=== PATIENT | male | born 1935 | race Caucasian/White ===

== ENCOUNTER → 2016-10-26 | Outpatient (CLI) | payer BC ==
[~2016-10-26] MED LIST: ASPI81TA21 PO; ATOR-24 PO; ENAL10TA88 PO; FLM4 PO; IBUP-1050 PO; METFTAB PO
[2016-10-26 10:36] LABS: ESTIMATED AVERAGE GLUCOSE 169 mg/dl; HA1C FLAG Normal (Normal)
[2016-10-26 11:08] LABS: LYME DISEASE AB IGG NEG (NEG); LYME DISEASE AB IGM NEG (NEG)
== END | disposition home or self-care (01) ==
LOC: C.LAB1850 09:30
PROVIDERS: ATTEND Internal Medicine
DX: E11.9 Type 2 diabetes mellitus without complications (principal); Z91.89 Other specified personal risk factors, not elsewhere classified

== ENCOUNTER → 2016-12-12 | Outpatient (CLI) | payer BC ==
--- NOTE | 2016-12-12 15:50 | DIAGNOSTIC IMAGING REPORT ---
LEFT TIBIA/FIBULA 2 VIEWS ROUTINE CLINICAL HISTORY: M79.605 Leg pain, left attention to medial [id number] COMPARISON: None. DISCUSSION: No evidence for a total knee revision. Longstem prosthetics are identified within the tibia or distal femur. Contact between metallic prosthesis and underlying bone appears to be acceptable. No abnormal contrast reaction. Soft tissue vascular calcification. There is no evidence for soft tissue swelling. 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 Good contact between prosthetic and underlying bone. No acute bony abnormality. Electronically signed by: Al Arenas M.D. 12/12/2016 3:48 PM Dictated Date/Time: 12/12/2016 3:47 PM
== END | disposition home or self-care (01) ==
LOC: C.RAD1850 15:21
PROVIDERS: ATTEND Physician Assistant
DX: M79.605 Pain in left leg (principal); Z98.890 Other specified postprocedural states

== ENCOUNTER → 2016-12-28 | Outpatient (CLI) | payer BC ==
--- NOTE | 2016-12-29 06:58 | PAP/PSG TECHNICIAN REPORT ---
[facility] [employer] Polysomnogram Report Study name: None Report date: 12/29/2016 Study date: 12/28/2016 Referring Physician: Tom Purcell M.D. Name: DEJON KENNEDY Richie Interpreting Physician: Tom Purcell M.D. Date of : 1935 T[employer] Fabric Inspector: Polina Ann RPS. Sex: Male Age: 81 StudyType: PSG PAP Weight: 223 lbs Height: 81 years, Height 5' 7.5" BMI: 34.41 Medications: Flomax 0.4 mg, Vasotec 20 mg, Metofrmin 1000 mg, Lipitor 40 mg, Lozol 1.25 mg Patient History 81. yr. old male here for a new titration sleep study. Patient had a HST that showed an AHI of 51.8. Patients [place] Sleepiness Scale Score is 8/24. Parameters Monitored NPSG: E1-M2, E2-M1, Fp1-M2, Fp2-M1, F3-M2, F4-M2, F4-M1, C3-M2, C4-M2, C4-M1, O1-M2, O2-M2, O2-M1, T3-M2, T4-M1, P3-M2, P4-M1, CHIN1, CHIN2, HR, EKG, Legs, PFLOW, SNOR, FLOW, CFLOW, Tidal Volume, THOR, ABDO, SpO2, PLTH, CPRESS, ETCO2 Wave, ETCO2, pH Sleep Architecture Sleep Stages Time at Lights Off 10:35:54 PM STAGES Time (min.) TST (%) Time at Lights On 5:58:24 AM Wake 83.0 -- Total Recording Time (TRT) 442.50 min. N1 29.5 8 Total Sleep Period (TSP) 429.5 min. N2 165.5 46 Total Sleep Time (TST) 359.5min. N3 87.0 24 Awake Time 83.0 min. REM 77.5 22 Wake after Sleep Onset 71.0 min. Sleep Efficiency (SE) 81 % Sleep Onset Latency (REINIER) 12.0 min. Number of Stage 1 Shifts None Awakenings 15 Stage Changes 69 Number of REM periods 3 REM 77.5 22 REM Latency 69.0 min. NREM 282.0 78 Body Position Analysis Supine Right Left Side Prone Vertical Total Sleep Time (min.) 2.6 0.0 359.5 359.50 0.0 3.5 Total Sleep Time (%) 0% 0% 100% 100 0% N/A% Total Sleep Time REM (min.) 0.0 0.0 77.5 None 0.0 0.0 Total Sleep Time NREM (min.) 0.0 0.0 282.0 None 0.0 0.0 Intermittent Wake (min.) 2.6 0.0 76.9 None 0.0 3.5 Total Sleep Period (%) 0% None None None None None Arousals Myoclonus (PLM) * Events Count Index Events Count Index Spontaneous 2 0 Events Awake (PLMW) 70 50.6 Respiratory 0 0.0 Events Asleep w/ Arousal (PLMA) 19 3.2 PLM 18 3 Events Asleep w/o Arousal (PLMS) 581 97.0 Snoring 4 1 Total Asleep 600 100.1 Total 24 4 Total 670 91 Respiratory Analysis * CA OA MA CH H RERA Total Count 0 0 0 0 10 0 10 Index 0.0 0.0 0.0 0 1.7 0 1.7 Mean Duration 0.0 0.0 0.0 0.00 21.1 0.0 21.1 Longest Duration 0.0 0.0 0.0 0.00 0.0 0.0 37.5 Respiratory Event Summary Total Supine ~Supine Right Left Prone REM NREM Apneas Count 0 N/A 0 N/A 0 N/A 0 0 Index 0.0 N/A 0 N/A 0.0 N/A 0 0 Hypopneas (4% Desat) Count 10 N/A 10 N/A 10 N/A 3 7 Index 1.7 N/A 2 N/A 1.7 N/A 2.3 1.5 Apneas & All Hypopneas Count 10 N/A 10 N/A 10 N/A 3 7 Index 1.7 N/A 2 N/A 2 N/A 2.3 1.5 Respiratory Events (Consumer Loan Manager+All Hyp+RERA) Count 10 N/A 10 N/A 10 N/A 3 7 Index 1.7 N/A 2 N/A 1.7 N/A 2.3 1.5 Respiratory Related Arousal Count 0 N/A 0 N/A 0 N/A 0 0 Index 0.0 N/A 0 N/A 0 N/A 0 0 Snoring Analysis Supine Right Left Prone REM NREM Total Snore duration 4.0 min Snores count N/A N/A 113 N/A 4 109 113 Snore mean duration 2.1 Sec Snores index N/A N/A 19 N/A 3.1 23.2 18.9 TST with snoring (%) 1.1% Desaturation Event Summary: Minimum %SpO2 Event Count Mean/Min/Max Duration(sec.) Desaturation Index % Time In Bed > 90 43 27.3 / 6.0 / 60.0 8.1 75.0 86 - 90 6 25.9 / 4.5 / 55.5 3.4 24.7 81 - 85 0 N/A 0.0 0.2 76 - 80 0 N/A 0.0 0.1 71 - 75 0 N/A 0.0 0.0 66 - 70 0 N/A 0.0 0.0 61 - 65 0 N/A 0.0 0.0 56 - 60 0 N/A 0.0 0.0 51 - 55 0 N/A 0.0 0.0 < 50 0 N/A 0.0 0.0 Total REM NREM Awake <50% 0.0 min. 0.0 min. 0.0 min. 0.0 min. 51 - 60% 0.0 min. 0.0 min. 0.0 min. 0.0 min. 61 - 70% 0.0 min. 0.0 min. 0.0 min. 0.0 min. 71 - 80% 0.2 min. 0.0 min. 0.0 min. 0.2 min. 81 - 90% 105.7 min. 28.6 min. 69.3 min. 7.8 min. 91 - 100% 318.5 min. 48.9 min. 212.0 min. 57.6 min. Average 92 91 92 93 Minimum SpO2 77 86 82 77 Desaturation Event Index 6.2 2.3 3.2 20.2 # Desat. Events below 89% 11 2 2 7 Time(%) with Saturation below 89% 4.2 0.3 3.5 0.5 Time(min.) with Saturation below 89% 18.0 1.2 14.8 2.0 Time (mins) REM (mins) NREM (mins) % of TST SpO2 Below 90% 16 3 N13 14.0 SpO2 Below 88% 2 0 0 0 Heart Rate Analysis Min (bpm) Max (bpm) Average (bpm) Awake 54 133 79 NREM 64 127 72 REM 62 80 69 Overall 62 127 71 Supplemental O2 Values Minimum O2 level: None Value Start Time End Time [employer] Inspector Comments Mr. Interiano slept in the left position. Cardiac arrhythmia and PLMs noted. No bruxism noted. CPAP was initiated at +4 CMH2O room air and up-titrated to an optimal level of + 7 CMH2O Cflex 2 , which nearly eliminated all respiratory events and snoring. A ResMed pabon FX nasal pillow were used during titration. Mr. Interiano awoke to use the restroom 4 times during the night. Mr. Interiano statet, That was a good night. The final report will be interpreted and signed by a sleep physician. The completed physician report will then be placed in the patient medical record. Therapy Event: Therapy (cm H20) 4 5 6 7 Total Time at Pressure (min.) 34.8 63.7 293.5 50.1 TST at Pressure (min.) 22.6 63.7 225.0 48.1 # Periods 1 1 1 1 Sleep Onset (min.) 11.8 0.0 0.0 0.0 REM Onset (min.) N/A 45.9 0.0 32.6 Sleep Efficiency % 64 100 76 96 Wakefulness (%) 35.2 0.0 23.3 4.0 Wakefulness (min.) 12.3 0.0 68.5 2.0 NREM 1 (%) 12.9 0.0 7.7 5.0 NREM 1 (min.) 4.5 0.0 22.5 2.5 NREM 2 (%) 51.9 8.5 38.4 58.1 NREM 2 (min.) 18.1 5.4 112.9 29.1 NREM 3 (%) 0.0 63.6 15.8 0.0 NREM 3 (min.) 0.0 40.5 46.5 0.0 REM (%) 0.0 28.0 14.7 32.9 REM (min.) 0.0 17.8 43.2 16.5 # Arousals 3 0 18 3 Arousal Index 8.0 0.0 4.8 3.7 # Snore 3 5 90 15 Snore Index 8.0 4.7 24.0 18.7 AHI 8.0 2.8 1.1 0.0 AHI Supine N/A N/A N/A N/A AHI Non-Supine 8.0 2.8 1.1 0.0 NREM AHI 8.0 0.0 1.3 0.0 REM AHI N/A 10.1 0.0 0.0 RDI 8.0 2.8 1.1 0.0 # Obstructive 0 0 0 0 # Central Ap 0 0 0 0 # Mixed 0 0 0 0 # Hypopneas 3 3 4 0 RERAS 0 0 0 0 Total Respiratory Events 3 3 4 0 Time Below SpO2 89.00% (min.) 10.6 5.4 0.0 0.0 Mean NREM SpO2 (%) 89 90 92 92 Mean REM SpO2 (%) N/A 90 91 91 Mean Sleep SpO2 (%) 89 90 92 92 Min NREM SpO2 (%) 82 88 89 90 Min REM SpO2 (%) N/A 86 89 89 Position Supine (min.) 0.0 0.0 0.0 0.0 Position Non-supine (min.) 22.6 63.7 225.0 48.1 LM Index Sleep 39.8 177.0 103.2 12.5 LM Index NREM 39.8 237.9 120.8 9.5 LM Index REM N/A 20.2 29.2 18.2 Mean Heart Rate (bpm) 76 74 71 68 Min Heart Rate (bpm) 71 66 64 62
--- NOTE | 2016-12-29 18:06 | POLYSOMNOGRAPH REPORT ---
CLINICAL DATA: An 81-year-old male with BMI of 34.4 referred by myself and Dr. Lundberg for CPAP titration study. He had a home sleep apnea test performed which showed severe sleep apnea with an AHI of 51.8 with severe nocturnal hypoxemia. SLEEP ARCHITECTURE: Total sleep period was 429.5 minutes. Total sleep time was 359.5 minutes divided between 282 minutes of non-REM sleep and 77.5 minutes of REM sleep. Sleep onset latency was 12 minutes. REM latency was 69 minutes. Sleep efficiency was 81%. Wake after sleep was 71 minutes. Sleep consisted of stage N1 8%, N2 46%, N3 24%, REM 22%. AROUSAL DATA: 24 arousals were recorded for an index of 4 per hour. PERIODIC LIMB MOVEMENTS DATA: Severe PLMD was noted. There were 600 limb movements during sleep noted for an index of 100 per hour with arousal index of 3.2 per hour. RESPIRATORY DATA: The AHI was 1.7. There were 10 hypopneic episodes, the mean duration of which was 21 seconds. OXIMETRY DATA: Transient hypoxemia was seen. Oxygen latrell was 82% during non-REM sleep. The mean saturation was 92%. Time below 88% was 2 minutes. ELECTROCARDIOGRAM: Heart rates ranged from 64-127 beats per minute. There appeared to be occasional PVC's. HEALTH CENTER ASSISTANT'S COMMENTS: The patient slept in the left position. He used a ResMed Thapa FX nasal pillow. He was titrated up to his final pressure setting of 7 cm of water, C-Flex setting #2. At that level, he slept for 48 minutes with an AHI of 0. IMPRESSION: Severe sleep apnea/hypopnea with nocturnal hypoxemia corrected with CPAP 7 cm of water pressure, cflex 2, ResMed Thapa FX nasal pillows. RECOMMENDATIONS: The patient will be started on the above noted treatment regimen and seen back in followup within 90 days to document efficacy and compliance. [facility]Anne
== END | disposition home or self-care (01) ==
LOC: C.NEUR 21:00
PROVIDERS: ATTEND Internal Medicine Pulmonary Disease
DX: G47.30 Sleep apnea, unspecified (principal)

== ENCOUNTER → 2017-03-07 | Outpatient (CLI) | payer BC ==
[2017-03-07 13:16] LABS: BASO % 0.7 %; BASO ABS # 0.06 K/uL (0-0.2); COMPLETE YES; HEMATOCRIT 41.8 % (42-52); IG% 0.6 %; LYMPH % 24.5 %; MEAN CELL VOLUME 87.6 fL (80-100); MEAN CORPUSCULAR HGB CONC 34.2 g/dl (32-36); MEAN PLATELET VOLUME 11.4 fL (7.4-10.4); NEUT % 61.2 %; PLATELET COUNT 217 K/uL (130-400); RED BLOOD COUNT 4.77 M/uL (4.7-6.1); WHITE BLOOD COUNT 8.58 K/uL (4.8-10.8)
[2017-03-07 13:25] LABS: ESTIMATED AVERAGE GLUCOSE 169 mg/dl; HA1C FLAG Normal (Normal)
[2017-03-07 15:30] LABS: BLOOD UREA NITROGEN 21 mg/dl (7-18); BUN/CREATININE RATIO 19.5 (10-20); CALCIUM 9.9 mg/dl (8.5-10.1); CARBON DIOXIDE 26 mmol/L (21-32); CHLORIDE 102 mmol/L (98-107); CHOLESTEROL 97 mg/dl (0-200); GLUCOSE 135 mg/dl (70-99); POTASSIUM 4.2 mmol/L (3.5-5.1); SODIUM 136 mmol/L (136-145); TRIGLYCERIDES 104 mg/dl (0-150); VERY LOW DENSITY LIPOPROT CALC 21 mg/dl
[2017-03-07 15:36] LABS: CHOLESTEROL/HDL RATIO 2.7; HDL CHOLESTEROL 36 mg/dl; LDL CHOLESTEROL CALCULATED 40 mg/dl
== END | disposition home or self-care (01) ==
LOC: C.LAB1850 12:28
PROVIDERS: ATTEND Physician Assistant
DX: I10 Essential (primary) hypertension (principal); E11.9 Type 2 diabetes mellitus without complications

== ENCOUNTER → 2017-06-02 | Outpatient (CLI) | payer BC ==
[2017-06-03 05:52] LABS: ESTIMATED AVERAGE GLUCOSE 171 mg/dl; HA1C FLAG Normal (Normal)
--- NOTE | 2017-06-15 07:13 | CODING QUERY MEDICAL NECESSITY ---
SUPPORTING DIAGNOSIS NEEDED Dr. Lundberg, A supporting diagnosis is required for the test/procedure performed on this patient in order for us to be reimbursed by the patient's insurance. Please provide a supporting diagnosis for the following test/procedure listed below next to the test name along with your signature. *If there is no additional diagnosis for this patient that would support the following test/procedure please document that below next to the test/procedure. Test(s)/Procedure(s) that require a supporting diagnosis: * [id number] GLYCATED HEMOGLOBIN DIAGNOSIS: DATE OF SERVICE: 06/02/17 Provider Signature: Date: Thank you [facility] Information Management Once completed, please kindly fax back to [phone] For questions please call [phone]
== END | disposition home or self-care (01) ==
LOC: C.LAB1850 13:44
PROVIDERS: ATTEND Internal Medicine
DX: E78.00 Pure hypercholesterolemia, unspecified (principal)

== ENCOUNTER → 2017-09-15 | Outpatient (CLI) | payer BC ==
[~2017-09-15] MED LIST changes: +ASPI-319 PO; -ASPI81TA21 PO
[2017-09-15 13:15] LABS: BASO % 0.5 %; BASO ABS # 0.04 K/uL (0-0.2); EOS % 2.8 %; EOS ABS # 0.24 K/uL (0-0.5); HEMOGLOBIN 14.4 g/dL (14.0-18.0); IG# 0.04 K/uL (0.00-0.02); LYMPH % 30.1 %; LYMPH ABS # 2.56 K/uL (1.2-3.4); MEAN CELL VOLUME 88.5 fL (80-100); MEAN CORPUSCULAR HEMOGLOBIN 29.6 pg (25-34); MEAN CORPUSCULAR HGB CONC 33.5 g/dl (32-36); MEAN PLATELET VOLUME 11.6 fL (7.4-10.4); MONO % 7.9 %; MONO ABS # 0.67 K/uL (0.11-0.59); NEUT % 58.2 %; NEUT ABS # 4.95 K/uL (1.4-6.5); PLATELET COUNT 212 K/uL (130-400); RED CELL DISTRIBUTION WIDTH CV 14.3 % (11.5-14.5); RED CELL DISTRIBUTION WIDTH SD 46.3 fL (36.4-46.3)
[2017-09-15 17:46] LABS: AST/SGOT 35 U/L (15-37); BLOOD UREA NITROGEN 19 mg/dl (7-18); CARBON DIOXIDE 29 mmol/L (21-32); CHOLESTEROL 119 mg/dl (0-200); CREATININE 1.13 mg/dl (0.60-1.40); GLUCOSE 177 mg/dl (70-99); POTASSIUM 4.1 mmol/L (3.5-5.1); SODIUM 138 mmol/L (136-145); URIC ACID 6.1 mg/dl (2.6-7.2)
[2017-09-15 17:59] LABS: ALT/SGPT 59 U/L (12-78); LDL CHOLESTEROL CALCULATED 59 mg/dl
[2017-09-16 07:30] LABS: HEMOGLOBIN A1C 7.9 % (4.5-5.6)
== END | disposition home or self-care (01) ==
LOC: C.LAB1850 12:23
PROVIDERS: ATTEND Internal Medicine
DX: E11.9 Type 2 diabetes mellitus without complications (principal)

== ENCOUNTER → 2017-12-18 | Outpatient (CLI) | payer BC | END | disposition home or self-care (01) | LOC: C.LAB1850 15:14 | PROVIDERS: ATTEND Internal Medicine | DX: E11.9 Type 2 diabetes mellitus without complications (principal) ==

== ENCOUNTER → 2018-04-05 | Outpatient (CLI) | payer BC ==
[2018-04-05 12:10] LABS: BASO % 0.3 %; BASO ABS # 0.03 K/uL (0-0.2); EOS % 2.4 %; EOS ABS # 0.22 K/uL (0-0.5); HEMATOCRIT 40.8 % (42-52); HEMOGLOBIN 13.9 g/dL (14.0-18.0); IG# 0.04 K/uL (0.00-0.02); LYMPH % 22.4 %; LYMPH ABS # 2.03 K/uL (1.2-3.4); MEAN CELL VOLUME 88.5 fL (80-100); MEAN CORPUSCULAR HEMOGLOBIN 30.2 pg (25-34); MEAN CORPUSCULAR HGB CONC 34.1 g/dl (32-36); MEAN PLATELET VOLUME 12.2 fL (7.4-10.4); MONO % 9.2 %; MONO ABS # 0.83 K/uL (0.11-0.59); NEUT % 65.3 %; NEUT ABS # 5.91 K/uL (1.4-6.5); PLATELET COUNT 214 K/uL (130-400); RED CELL DISTRIBUTION WIDTH CV 13.5 % (11.5-14.5); RED CELL DISTRIBUTION WIDTH SD 43.7 fL (36.4-46.3); WHITE BLOOD COUNT 9.06 K/uL (4.8-10.8)
[2018-04-05 12:23] LABS: HEMOGLOBIN A1C 7.9 % (4.5-5.6)
[2018-04-05 12:40] LABS: ALT/SGPT 49 U/L (12-78); AST/SGOT 31 U/L (15-37); BLOOD UREA NITROGEN 26 mg/dl (7-18); CALCIUM 9.3 mg/dl (8.5-10.1); CARBON DIOXIDE 23 mmol/L (21-32); CHOLESTEROL 78 mg/dl (0-200); CREATININE 1.21 mg/dl (0.60-1.40); GLUCOSE 187 mg/dl (70-99); LDL CHOLESTEROL CALCULATED 30 mg/dl; POTASSIUM 4.3 mmol/L (3.5-5.1); SODIUM 136 mmol/L (136-145); URIC ACID 7.1 mg/dl (2.6-7.2)
== END | disposition home or self-care (01) ==
LOC: C.LAB1850 10:10
PROVIDERS: ATTEND Internal Medicine
DX: N40.1 Benign prostatic hyperplasia with lower urinary tract symptoms (principal)

== ENCOUNTER 2023-08-08 16:10 | Inpatient (IN) ==
--- NOTE | 2023-08-08 16:22 | Emergency Department Note ---
Impression & Plan AMS (altered mental status), Fall, DINORAH (acute kidney injury), Rhabdomyolysis, Hyperbilirubinemia, Elevated troponin ED Provider Note ED Provider Note NAME: DEJON KENNEDY AGE:87 SEX: Male : 1935 ARRIVES VIA: EMS INFORMANT: Patient, EMS ED PROVIDER(s): Janis Rizvi DO CHIEF COMPLAINT: Found down, fall HPI: This is an 87-year-old male presents emergency department via EMS after family found him on the floor in the bathroom. They did not recall seeing him at all earlier today, believes they may have seen him yesterday. It is unknown how long the patient may have been in the bathroom for or when he may have fallen. Patient unable to provide much history. He denies pain when asked however screams as though he is in pain with any attempts at movement. Family stated his speech sounded abnormal as well although patient states his mouth is dry. PAST MEDICAL HISTORY:See Below PAST SURGICAL HISTORY:See Below FAMILY HISTORY:See Below SOCIAL HISTORY:See Below HOME MEDICATIONS:See Below ALLERGIES:See Below VITALS:See Below PHYSICAL EXAMINATION: GENERAL: alert, well appearing, well nourished, no distress, non-toxic HEAD: nc/at, no evidence of facial trauma, no garzon signs, no raccoon eyes EYE EXAM: normal conjunctiva, PERRL and EOM's grossly intact, small amount of yellow discharge noted along the medial aspect of the left eye, no periorbital edema or ecchymosis OROPHARYNX: no exudate, no erythema, lips, buccal mucosa, and tongue normal and mucous membranes are dry NECK: supple, no nuchal rigidity, no adenopathy, non-tender, FROM LUNGS: Clear to auscultation. Normal chest wall mechanics, no w/r/r HEART: no murmurs, S1 normal and S2 normal CHEST WALL: No obvious trauma, no crepitus, no step-off, nontender with palpation ABDOMEN: abdomen soft, non-tender, normo-active bowel sounds, no masses, no rebound or guarding. No evidence of trauma. PELVIS: Stable to compression, nontender with palpation BACK: Back is symmetrical on inspection and there is no deformity, no midline tenderness, no CVA tenderness. SKIN: no rashes, petechiae, orbruising UPPER EXTREMITIES: upper extremities are grossly normal. Decreased FROM bilateral shoulders otherwise normal range of motion to elbows and wrists, nml pulses b/l, sensation intact bilaterally, no evidence of trauma or deformity LOWER EXTREMITIES: No pitting edema. FROM, nml pulses b/l. Holds RLE slightly rotated however wants to keep knee bent. No other evidence of trauma or deformity NEURO EXAM: Normal sensorium, cranial nerves II-XII grossly intact, normal speech, no facial droop,nogross weakness of arms, no gross weakness of legs. Gross sensation intact. No ataxia. Vital Signs: reviewed and remarkable Differential Diagnosis: CHI, ICH, syncope, mechanical fall, dehydration, DINORAH, electrolyte abnormality, dysrhythmia, ACS, hemoperitoneum, occult fracture, musculoskeletal strain/sprain, as well as others were considered MEDICAL DECISION MAKING: This is an 87-year-old male presents emerged part via EMS after being found down by family and concern for fall. Patient unable to provide much history as he did not recall how he ended up on the bathroom floor. He is unclear if this was syncope or mechanical fall. I did speak with 3 family members who arrived at bedside after we begin the patient's evaluation. Labs drawn and sent, IV established, EKG and x-rays performed at bedside and interpreted by me and patient monitored in telemetry. Due to appearance of clinical dehydration he was started on gentle IV fluid rehydration. He was sent for additional CT imaging due to unknown mechanism and concern for occult trauma. Family reports he is often forgetful including forgetting to take his medications. They state he does live alone, and does still drive. They state that the last time anyone saw him or spoke with him was yesterday. They deny any recent change in his medications or illness. Patient became more alert and conversational while he was here and was hydrated. He denied any pain. There is no other obvious evidence of trauma. Patient noted to have DINORAH as well as mild rhabdomyolysis. I suspect the elevated troponin is secondary to this. Hyperglycemia noted and patient is a known diabetic, no evidence for DKA. Patient did initially have an elevated lactic acid, this was beginning to improve on repeat testing. Leukocytosis noted, unclear if this is stress to margination related to evolving infection. Patient did appear hemoconcentrated I suspect from his dehydration. Family updated on all results at bedside. Patient was noted to have cholelithiasis and choledocholithiasis which, per radiology, is unchanged compared to prior, however patient now with hyperbilirubinemia. It is unclear if this is from evolving obstructive biliary process versus secondary to his dehydration. Patient had no abdominal pain on initial as well as repeat examination. Patient remained hemodynamically stable. I discussed all results with family and they verbalized understanding. Case discussed with hospitalist team for additional evaluation and management. At this time I do not suspect occult CVA as patient had no focal deficits, and speech was improving with hydration. Consultation(s): 193: Discussed with Dr. Bartlett, [facility] hospitalist team, for additional evaluation and management. ER Treatment Provided: See below Diagnostics Interpreted By Me: -ECG: Sinus tachycardia at 118, normal axis, right bundle branch block, nonspecific ST/T wave changes -Cardiac Monitoring: An order was placed for continuous cardiac monitoring. The monitor shows a rate of 98 with normal sinus rhythm. -Laboratory studies: As stated above and show below. -Imaging studies: X-ray Chest: A single view study of the chest was reviewed and was negative for cardiomegaly, focal infiltrate, effusion, pulmonary edema, or wide mediastinum. No obvious rib fracture, no pneumothorax. xr pelvis: No obvious fracture or dislocation Triage Nursing Note Reviewed Prior/Outside Records Reviewed- surgery office visit from February 2023 Past Med/Surg History Medical History Cholelithiasis History of acute cholangitis SNHL (sensorineural hearing loss) Hypercholesterolemia Hypertension Diabetes Hemorrhoids Surgical History Hx of cholecystectomy Hx of transurethral resection of prostate History of arthroplasty of knee Hx of hernia repair Hx of appendectomy Family History Mother Diabetes Father Heart disease Denies family history of Ovarian cancer Prostate cancer Myocardial infarction Breast cancer Colorectal cancer Social History Smoking Status: Never smoker Second Hand Exposure: Yes; Hx Alcohol Use: No Hx Substance Use: No Preferred Language: Indian Visual Impairment: No Limitations Hearing Ability: Use of Hearing Aid marital status: / Current Living Situation: Alone current occupational status: retired How many Children do You have: 5 Feels Safe at Home: Yes Childhood Exposure to Second-Hand Smoke: Yes Diet: regular during the past year weight has: remained stable Dental Care, Regularly: Yes Physical Activity Frequency: 1-2 Times per Week Seatbelt Use: always Sunscreen Use: Yes Allergies Allergies Allergy/AdvReac Type Severity Reaction Status Date / Time No Known Allergies Allergy Unknown Verified 08/08/23 17:09 Home Meds Home Medications Medication Instructions Recorded Confirmed ibuprofen 200 mg tablet (Advil) 200 mg PO Q6H PRN Pain 09/06/19 08/08/23 aspirin 81 mg tablet,delayed 81 mg PO DAILY 12/20/20 08/08/23 release Previous Rx's Medication Instructions Recorded atorvastatin 40 mg tablet 40 mg PO HS #90 tabs 08/01/22 indapamide 1.25 mg tablet 1.25 mg PO QAM #90 tabs 08/01/22 metformin 1,000 mg tablet 1,000 mg PO BID #180 tabs 08/01/22 tamsulosin 0.4 mg capsule (Flomax) 0.4 mg PO DAILY #90 caps 08/01/22 glipizide 5 mg tablet, extended 5 mg PO DAILY #90 tabs 02/13/23 release 24 hr cholecalciferol (vitamin D3) 1,250 50,000 unit PO .ONCE WEEKLY #12 04/03/23 mcg (50,000 unit) capsule caps empagliflozin 25 mg tablet 25 mg PO DAILY #90 tabs 04/03/23 (Jardiance) semaglutide 3 mg tablet (Rybelsus) 3 mg PO DAILY 30 days #30 tabs 05/22/23 semaglutide 7 mg tablet (Rybelsus) 7 mg PO DAILY #30 tabs 05/22/23 enalapril maleate 10 mg tablet 10 mg PO BID #180 tabs 05/30/23 Results & Data (ED) Vital Signs Vital Signs - 24 hr 08/08/23 16:18 08/08/23 16:19 08/08/23 17:51 Temperature 36.4 C L Temperature Source Oral Pulse Rate 118 H 106 H Pulse Rate [Apical] 107 H Respiratory Rate 33 H 34 H Respiratory Effort / Characteristics Non-Labored Spontaneous Non-Labored Spontaneous Respiratory Depth Normal Respiratory Pattern Regular Regular Blood Pressure 133/98 Blood Pressure [Left Arm] 150/92 H Blood Pressure Mean 109 Blood Pressure Mean [Left Arm] 111 Blood Pressure Position Lying Blood Pressure Position [Left Arm] Pulse Oximetry 92 95 Oxygen Delivery Method Room Air Nasal Cannula Oxygen Flow Rate 3 3 Sepsis Recent Fever Within 48 Hours No Sepsis New/Unexplained Change in Mental Status N/A Sepsis Action Taken by Nursing Previously Notified 08/08/23 19:00 Temperature Temperature Source Pulse Rate Pulse Rate [Apical] 112 H Respiratory Rate 36 H Respiratory Effort / Characteristics Respiratory Depth Respiratory Pattern Blood Pressure Blood Pressure [Left Arm] 135/94 Blood Pressure Mean Blood Pressure Mean [Left Arm] 107 Blood Pressure Position Blood Pressure Position [Left Arm] Semi-fowlers Pulse Oximetry 95 Oxygen Delivery Method Nasal Cannula Oxygen Flow Rate 4 Sepsis Recent Fever Within 48 Hours Sepsis New/Unexplained Change in Mental Status Sepsis Action Taken by Nursing Laboratory Data 08/08/23 16:20 08/08/23 16:20 Lab Results 08/08/23 08/08/23 08/08/23 Range/Units 16:20 16:29 16:40 WBC 16.87 H (4.8-10.8) K/ul RBC 6.41 H (4.70-6.10) M/uL Hgb 18.9 H (14.0-18.0) g/dl POC Hgb 19.4 H (14.0-18.0) g/dl Hct 55.3 H (42.0-52.0) % POC Hct 57 H (42-52) % MCV 86.3 (80.0-100.0) fL MCH 29.5 (25.0-34.0) pg MCHC 34.2 (32.0-36.0) g/dL RDW Std Deviation 49.0 H (36.4-46.3) fL RDW Coeff of Gato 17.2 H (11.5-14.5) % Plt Count 246 (130-400) K/uL MPV 12.4 (9.4-12.4) fL Immature Gran % (Auto) 0.5 % Neut % (Auto) 78.5 % Lymph % (Auto) 10.6 % Baxter % (Auto) 10.2 % Eos % (Auto) 0.0 % Baso % (Auto) 0.2 % Neut # (Auto) 13.26 H (1.40-6.50) K/uL Lymph # (Auto) 1.78 (1.20-3.40) K/uL Baxter # (Auto) 1.72 H (0.11-0.59) K/uL Eos # (Auto) 0.00 (0.00-0.50) K/uL Baso # (Auto) 0.03 (0.00-0.20) K/uL Immature Gran # (Auto) 0.08 (0.01-0.20) K/uL PT 12.0 (9.0-12.0) Seconds INR 1.1 (0.9-1.1) POC Sodium 148 H (135-144) mmol/L Sodium 148 H (136-145) mmol/L POC Potassium 4.3 (3.3-5.0) mmol/L Potassium 4.4 (3.5-5.1) mmol/L POC Chloride 117 H (101-112) mmol/L Chloride 113 H (98-107) mmol/L Carbon Dioxide 22 (21-32) mmol/L POC Total CO2 21 L (24-31) mmol/L Anion Gap 13 H (3-11) POC Anion Gap 15.0 L (16-25) mmol/L POC BUN 79 H (7-18) mg/dl BUN 86 H (6-23) mg/dl Creatinine 1.78 H (0.6-1.4) mg/dl POC Creatinine 1.9 H (0.6-1.3) mg/dl Est Cr Clr Drug Dosing Not Reportable Est GFR ( Amer) 38.3 ml/min Est GFR (Non-Af Amer) 33.1 ml/min BUN/Creatinine Ratio 48.3 H (10-20) Glucose 330 H* (70-99(Fasting)) mg/dl POC Glucose (other) 335 H (70-99) mg/dl Lactate 2.6 H* (0.4-2.0) mmol/L Calcium 10.0 (8.6-10.3) mg/dl POC Ioniz Calcium Silvana 1.19 (1.12-1.32) mmol/l Magnesium 3.1 H (1.7-2.4) mg/dl Total Bilirubin 6.2 H (0.2-1.0) mg/dl AST 53 H (13-39) U/L ALT 42 (7-52) U/L Alkaline Phosphatase 82 (34-104) U/L Total Creatine Kinase 1556 H (30-223) U/L Troponin I High Sens 61.7 H* (0-20) pg/ml Total Protein 7.2 (6.0-8.3) gm/dl Albumin 3.8 (3.4-5.0) gm/dl Globulin 3.4 (2.5-4.0) gm/dl Albumin/Globulin Ratio 1.1 (0.9-2) Lipase 23 (11-82) U/L Procalcitonin 0.54 H (0-0.5) ng/ml TSH 1.047 (0.300-4.500) uIu/ml Urine Color Dark Yellow Urine Appearance Clear (Clear) Urine pH 5.5 (4.5-7.5) Ur Specific Morenci 1.029 (1.000-1.030) Urine Protein 2+ H (Negative) Urine Glucose (UA) 3+ H (Negative) Urine Ketones Trace H (Negative) Urine Blood Negative (Negative) Urine Nitrite Negative (Negative) Urine Bilirubin 1+ H (Negative) Urine Urobilinogen Negative (Negative) Ur Leukocyte Esterase Negative (Negative) Urine WBC (Auto) 1-5 (0-5) /hpf Urine RBC (Auto) 5-10 H (0-4) /hpf U Hyaline Cast (Auto) 5-10 H (0-5) /lpf U Epithel Cells (Auto) 5-10 H (0-5) /lpf Urine Bacteria (Auto) Negative (Negative) 08/08/23 Range/Units 19:07 WBC (4.8-10.8) K/ul RBC (4.70-6.10) M/uL Hgb (14.0-18.0) g/dl POC Hgb (14.0-18.0) g/dl Hct (42.0-52.0) % POC Hct (42-52) % MCV (80.0-100.0) fL MCH (25.0-34.0) pg MCHC (32.0-36.0) g/dL RDW Std Deviation (36.4-46.3) fL RDW Coeff of Gato (11.5-14.5) % Plt Count (130-400) K/uL MPV (9.4-12.4) fL Immature Gran % (Auto) % Neut % (Auto) % Lymph % (Auto) % Baxter % (Auto) % Eos % (Auto) % Baso % (Auto) % Neut # (Auto) (1.40-6.50) K/uL Lymph # (Auto) (1.20-3.40) K/uL Baxter # (Auto) (0.11-0.59) K/uL Eos # (Auto) (0.00-0.50) K/uL Baso # (Auto) (0.00-0.20) K/uL Immature Gran # (Auto) (0.01-0.20) K/uL PT (9.0-12.0) Seconds INR (0.9-1.1) POC Sodium (135-144) mmol/L Sodium (136-145) mmol/L POC Potassium (3.3-5.0) mmol/L Potassium (3.5-5.1) mmol/L POC Chloride (101-112) mmol/L Chloride (98-107) mmol/L Carbon Dioxide (21-32) mmol/L POC Total CO2 (24-31) mmol/L Anion Gap (3-11) POC Anion Gap (16-25) mmol/L POC BUN (7-18) mg/dl BUN (6-23) mg/dl Creatinine (0.6-1.4) mg/dl POC Creatinine (0.6-1.3) mg/dl Est Cr Clr Drug Dosing Est GFR ( Amer) ml/min Est GFR (Non-Af Amer) ml/min BUN/Creatinine Ratio (10-20) Glucose (70-99(Fasting)) mg/dl POC Glucose (other) (70-99) mg/dl Lactate 2.4 H* (0.4-2.0) mmol/L Calcium (8.6-10.3) mg/dl POC Ioniz Calcium Silvana (1.12-1.32) mmol/l Magnesium (1.7-2.4) mg/dl Total Bilirubin (0.2-1.0) mg/dl AST (13-39) U/L ALT (7-52) U/L Alkaline Phosphatase (34-104) U/L Total Creatine Kinase (30-223) U/L Troponin I High Sens (0-20) pg/ml Total Protein (6.0-8.3) gm/dl Albumin (3.4-5.0) gm/dl Globulin (2.5-4.0) gm/dl Albumin/Globulin Ratio (0.9-2) Lipase (11-82) U/L Procalcitonin (0-0.5) ng/ml TSH (0.300-4.500) uIu/ml Urine Color Urine Appearance (Clear) Urine pH (4.5-7.5) Ur Specific Morenci (1.000-1.030) Urine Protein (Negative) Urine Glucose (UA) (Negative) Urine Ketones (Negative) Urine Blood (Negative) Urine Nitrite (Negative) Urine Bilirubin (Negative) Urine Urobilinogen (Negative) Ur Leukocyte Esterase (Negative) Urine WBC (Auto) (0-5) /hpf Urine RBC (Auto) (0-4) /hpf U Hyaline Cast (Auto) (0-5) /lpf U Epithel Cells (Auto) (0-5) /lpf Urine Bacteria (Auto) (Negative) Administered Medications Heparin Sodium (Porcine) (Heparin Sod 5,000 Unit/0.5 Ml Vial) 5,000 units SQ Q12 JENNIFER Stop: 09/07/23 22:07 Last Admin: 08/08/23 22:51 Dose: 5,000 units Documented By: AB Insulin Aspart (Insulin Aspart Per Unit Charge) 0 units SC ACHS JENNIFER Stop: 09/07/23 22:07 Last Admin: 08/08/23 22:51 Dose: 6 units Documented By: AB Co-signed By: AN Insulin Glargine (Lantus Per Unit Charge) 10 units SQ BID JENNIFER Stop: 09/07/23 22:07 Last Admin: 08/08/23 22:51 Dose: 10 units Documented By: AB Co-signed By: AN Discontinued Medications Sodium Chloride (Nss) 1,000 mls @ 125 mls/hr IV .Q8H JENNIFER Stop: 09/07/23 16:29 Last Admin: 08/08/23 16:45 Dose: 125 mls/hr Documented By: AB Piperacillin Sod/Tazobactam (Sod 4.5 gm/ Dextrose) 100 mls @ 200 mls/hr IV ONE ONE; Protocol Stop: 08/08/23 22:59 Last Admin: 08/08/23 22:55 Dose: 200 mls/hr Documented By: Ioversol (Optiray 320 500ml) 93 ml IV ONCE ONE Stop: 08/08/23 17:56 Last Admin: 08/08/23 17:55 Dose: 93 ml Documented By: JANETH Imaging Data Radiologist's Impression: Abdomen/Pelvis CT 08/08/23 16:[address] WITH CONTRAST; CT ABDOMEN AND PELVIS WITH IV CONTRAST ONLY HISTORY: Acute chest and abdominal trauma status post fall trauma TECHNIQUE: Multiaxial CT images of the chest, abdomen and pelvis were performed following the IV administration of 93 cc of Optiray. A dose lowering technique was utilized adhering to the principles of ALARA. COMPARISON: CT abdomen and pelvis 01/14/2023 FINDINGS: CT CHEST: No large thyroid nodule or lymphadenopathy. Moderate cardiomegaly without pericardial effusion. Extensive coronary artery calcifications. Atherosclerosis of the thoracic aorta without aneurysm or dissection. Unremarkable pulmonary artery. There is no pneumothorax, pleural effusion or pulmonary edema. Mild mucous plugging with bronchial wall thickening suggestive of bronchitis or reactive airway disease. Mild subsegmental bibasilar prominent opacities suggestive of atelectasis. There are no suspicious pulmonary nodules or masses identified. Unremarkable soft tissues. Degenerative changes of the shoulders and spine. No acute fracture identified. CT ABDOMEN/PELVIS: No free air. Unremarkable spleen, mildly atrophic pancreas and adrenal glands. Cholelithiasis with equivocal choledocholithiasis, image 164 series 11. No significant biliary ductal dilation. Cortical thinning of the kidneys with a few bilateral renal cysts. Posey catheter noted within a decompressed urinary bladder. Chronic 5 mm calculus in the distal left ureter just proximal to the ureterovesicular junction. Heterogeneous appearance of the enlarged prostate. Atherosclerosis of the aorta. No lymphadenopathy. Small hiatal hernia. No bowel obstruction or bowel wall thickening. Colonic diverticulosis. Unremarkable soft tissues. No acute fracture. 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 Unchanged subcentimeter metallic density focus noted posterior to the right mid sacrum on image 303. IMPRESSION: 1. No acute posttraumatic intrathoracic, intra-abdominal or intrapelvic abnormality. 2. No acute fracture identified. 3. Cholelithiasis with probable choledocholithiasis. No biliary ductal dilation. Correlate with serum bilirubin. 4. Unchanged positioning of the 5 mm calculus within the distal left ureter without obstructive uropathy. 5. Additional findings as above. ACT 112: Negative or not required by law. Electronically signed by: Boogie Burden M.D. 08/08/2023 6:[address] 08/08/23 16:16 CT cervical spine wo con CLINICAL HISTORY: 87 years-old Male with trauma. Acute head and neck injury status post fall COMPARISON: Head CT of same day TECHNIQUE: Multiple axial CT images of the cervical spine were obtained without contrast. A dose lowering technique was utilized adhering to the principles of ALARA. FINDINGS: Moderate multilevel intervertebral disc space narrowing with moderate to advanced spondylotic spurring and facet arthrosis. Nuchal ligament calcifications. Severe degeneration at C1-C2 with partially calcified pannus posterior to the dens. The cervical soft tissues appear unremarkable. The visualized lung apices appear clear. Secretions noted within the airway. IMPRESSION: No acute cervical spine fracture or subluxation. ACT 112: Negative or not required by law. The above report was generated using voice recognition software. It may contain grammatical, syntax or spelling errors. Electronically signed by: Boogie Burden M.D. 08/08/2023 6:[address] 08/08/23 16:[address] WITH CONTRAST; CT ABDOMEN AND PELVIS WITH IV CONTRAST ONLY HISTORY: Acute chest and abdominal trauma status post fall trauma TECHNIQUE: Multiaxial CT images of the chest, abdomen and pelvis were performed following the IV administration of 93 cc of Optiray. A dose lowering technique was utilized adhering to the principles of ALARA. COMPARISON: CT abdomen and pelvis 01/14/2023 FINDINGS: CT CHEST: No large thyroid nodule or lymphadenopathy. Moderate cardiomegaly without pericardial effusion. Extensive coronary artery calcifications. Atherosclerosis of the thoracic aorta without aneurysm or dissection. Unremarkable pulmonary artery. There is no pneumothorax, pleural effusion or pulmonary edema. Mild mucous plugging with bronchial wall thickening suggestive of bronchitis or reactive airway disease. Mild subsegmental bibasilar prominent opacities suggestive of atelectasis. There are no suspicious pulmonary nodules or masses identified. Unremarkable soft tissues. Degenerative changes of the shoulders and spine. No acute fracture identified. CT ABDOMEN/PELVIS: No free air. Unremarkable spleen, mildly atrophic pancreas and adrenal glands. Cholelithiasis with equivocal choledocholithiasis, image 164 series 11. No significant biliary ductal dilation. Cortical thinning of the kidneys with a few bilateral renal cysts. Posey catheter noted within a decompressed urinary bladder. Chronic 5 mm calculus in the distal left ureter just proximal to the ureterovesicular junction. Heterogeneous appearance of the enlarged prostate. Atherosclerosis of the aorta. No lymphadenopathy. Small hiatal hernia. No bowel obstruction or bowel wall thickening. Colonic diverticulosis. Unremarkable soft tissues. No acute fracture. 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 Unchanged subcentimeter metallic density focus noted posterior to the right mid sacrum on image 303. IMPRESSION: 1. No acute posttraumatic intrathoracic, intra-abdominal or intrapelvic abnormality. 2. No acute fracture identified. 3. Cholelithiasis with probable choledocholithiasis. No biliary ductal dilation. Correlate with serum bilirubin. 4. Unchanged positioning of the 5 mm calculus within the distal left ureter without obstructive uropathy. 5. Additional findings as above. ACT 112: Negative or not required by law. Electronically signed by: Boogie Burden M.D. 08/08/2023 6:[address] 08/08/23 16:16 CT head/brain wo con CLINICAL HISTORY: 87 years-old Male with trauma. Acute head trauma TECHNIQUE: Multiple axial CT images of the head were obtained without contrast. A dose lowering technique was utilized adhering to the principles of ALARA. CT DOSE: 3580.92 mGy.cm COMPARISON: 12/20/2020 FINDINGS: No acute intracranial hemorrhage, midline shift, intra-axial mass, hydrocephalus, territorial ischemia or abnormal extra-axial collection. Involutional changes with chronic microvascular ischemic disease. Cerebrovascular calcifications. Unchanged 7 mm calcified extra-axial focus adjacent to the right temporal lobe on image 13 series 2. The calvarium is intact. Prior bilateral lens repair. The paranasal sinuses, mastoid air cells, and middle ear cavities are clear. IMPRESSION: No acute intracranial abnormality or calvarial fracture. ACT 112: Negative or not required by law. The above report was generated using voice recognition software. It may contain grammatical, syntax or spelling errors. Electronically signed by: Boogie Burden M.D. 08/08/2023 6:11 PM Chest X-Ray 08/08/23 16:17 XR chest 1V portable HISTORY: 87 years-old Male trauma acute chest trauma COMPARISON: 01/14/2023 TECHNIQUE: AP view of the chest FINDINGS: Cardiac silhouette is enlarged. Pulmonary vascular congestion with interstitial coarsening. Unchanged right hemidiaphragmatic elevation. Degenerative changes of the shoulders and spine. IMPRESSION: Cardiomegaly with pulmonary vascular congestion. ACT 112: Negative or not required by law. The above report was generated using voice recognition software. It may contain grammatical, syntax or spelling errors. Electronically signed by: Boogie Burden M.D. 08/08/2023 5:45 PM Pelvis X-Ray 08/08/23 16:17 XR pelvis 1-2V routine HISTORY: 87 years-old Male trauma acute pelvic trauma COMPARISON: 8 01/14/2023 TECHNIQUE: AP view the pelvis FINDINGS: Moderate osteoarthritis of the hips. No acute fracture, dislocation or avascular necrosis. Arterial calcifications. Unchanged metallic density focus projected over the posterior right mid sacrum. IMPRESSION: No acute fracture or dislocation. ACT 112: Negative or not required by law. The above report was generated using voice recognition software. It may contain grammatical, syntax or spelling errors. Electronically signed by: Boogie Burden M.D. 08/08/2023 5:46 PM Discharge Plan Visit Data Chief Complaint: Fall Stated Complaint: FALL, NO VISIBLE INJURIES, UNKNWN DOWNTIME ED Provider: Janis Rizvi Discharge Problem: AMS (altered mental status), Fall, DINORAH (acute kidney injury), Rhabdomyolysis, Hyperbilirubinemia, Elevated troponin Patient Disposition: Admitted As Inpatient Discharge Instructions Interventions: ED Discharge Assessment Last Done: 08/08/23 22:08
[2023-08-08] MEDS ORDERED: SODIUM CHLORIDE 0.9% 1,000 ML IV SCH (16:30)
--- NOTE | 2023-08-08 16:35 | Electrocardiogram Report ---
Test Reason : Blood Pressure : / mmHG Vent. Rate : 118 BPM Atrial Rate : 118 BPM P-R Int : 166 ms QRS Dur : 116 ms QT Int : 336 ms P-R-T Axes : 043 042 -11 degrees QTc Int : 470 ms Sinus tachycardia Right bundle branch block Abnormal ECG When compared with ECG of 14-JAN-2023 15:20, Non-specific change in ST segment in Inferior leads Nonspecific T wave abnormality no longer evident in Lateral leads Confirmed by Brendan Dominguez ([id number]) on 08/08/2023 4:34:36 PM Referred By: Confirmed By:Fred Dominguez
[2023-08-08 16:36] LABS: Basophils # (auto) 0.03 K/uL (0.00-0.20); Basophils % (auto) 0.2 %; Hematocrit (blood only) 55.3 % (42.0-52.0); Hemoglobin 18.9 g/dl (14.0-18.0); Immature Granulocytes # (auto) 0.08 K/uL (0.01-0.20); Immature Granulocytes % (auto) 0.5 %; Lymphocytes # (auto) 1.78 K/uL (1.20-3.40); Lymphocytes % (auto) 10.6 %; Mean Corpuscular Hemoglobin 29.5 pg (25.0-34.0); Mean Corpuscular Hgb Conc 34.2 g/dL (32.0-36.0); Mean Corpuscular Volume 86.3 fL (80.0-100.0); Mean Platelet Volume 12.4 fL (9.4-12.4); Monocytes # (auto) 1.72 K/uL (0.11-0.59); Monocytes % (auto) 10.2 %; Neutrophils # (auto) 13.26 K/uL (1.40-6.50); Neutrophils % (auto) 78.5 %; Platelet Count 246 K/uL (130-400); RDW Coefficient of Variation 17.2 % (11.5-14.5); Red Blood Count 6.41 M/uL (4.70-6.10); White Blood Count 16.87 K/ul (4.8-10.8)
[2023-08-08 16:56] LABS: iSTAT Creatinine 1.9 mg/dl (0.6-1.3); iSTAT Hemoglobin 19.4 g/dl (14.0-18.0); iSTAT Ionized Calcium 1.19 mmol/l (1.12-1.32); iSTAT Potassium 4.3 mmol/L (3.3-5.0)
[2023-08-08 16:57] LABS: Alanine Aminotransferase 42 U/L (7-52); Albumin Globulin Ratio 1.1 (0.9-2); Albumin Level 3.8 gm/dl (3.4-5.0); Alkaline Phosphatase 82 U/L (34-104); Anion Gap 13 (3-11); Aspartate Aminotransferase 53 U/L (13-39); BUN Creatinine Ratio 48.3 (10-20); Bilirubin,Total 6.2 mg/dl (0.2-1.0); Blood Urea Nitrogen 86 mg/dl (6-23); Carbon Dioxide 22 mmol/L (21-32); Chloride 113 mmol/L (98-107); Creatine Kinase 1556 U/L (30-223); Est GFR (African American) 38.3 ml/min; Est GFR (Non-African American) 33.1 ml/min; Globulin 3.4 gm/dl (2.5-4.0); Glucose 330 mg/dl (70-99(Fasting)); Lipase 23 U/L (11-82); Magnesium 3.1 mg/dl (1.7-2.4); Potassium 4.4 mmol/L (3.5-5.1); Sodium 148 mmol/L (136-145); Total Protein 7.2 gm/dl (6.0-8.3)
[2023-08-08 17:00] LABS: INR 1.1 (0.9-1.1); Troponin I High Sensitivity 61.7 pg/ml (0-20)
[2023-08-08 17:00] LABS: Appearance Urine Clear (Clear); Bacteria Urine Automated Negative (Negative); Blood Urine Negative (Negative); Color Urine Dark Yellow; Glucose Urine UA 3+ (Negative); Ketones Urine Trace (Negative); Leukocyte Esterase Urine Negative (Negative); Nitrite Urine Negative (Negative); Protein Urine 2+ (Negative); Specific Gravity Urine 1.029 (1.000-1.030); Urobilinogen Urine Negative (Negative); pH Urine 5.5 (4.5-7.5)
[2023-08-08 17:02] LABS: Bilirubin Urine 1+ (Negative)
[2023-08-08 17:09] LABS: Thyroid Stimulating Hormone 1.047 uIu/ml (0.300-4.500)
--- NOTE | 2023-08-08 17:47 | XRay Report ---
XR chest 1V portable HISTORY: 87 years-old Male trauma acute chest trauma COMPARISON: 01/14/2023 TECHNIQUE: AP view of the chest FINDINGS: Cardiac silhouette is enlarged. Pulmonary vascular congestion with interstitial coarsening. Unchanged right hemidiaphragmatic elevation. Degenerative changes of the shoulders and spine. IMPRESSION: Cardiomegaly with pulmonary vascular congestion. ACT 112: Negative or not required by law. The above report was generated using voice recognition software. It may contain grammatical, syntax o r spelling errors. Electronically signed by: Boogie Burden M.D. 08/08/2023 5:45 PM
--- NOTE | 2023-08-08 17:47 | XRay Report ---
XR pelvis 1-2V routine HISTORY: 87 years-old Male trauma acute pelvic trauma COMPARISON: 8 01/14/2023 TECHNIQUE: AP view the pelvis FINDINGS: Moderate osteoarthritis of the hips. No acute fracture, dislocation or avascular necrosis. Arterial c alcifications. Unchanged metallic density focus projected over the posterior right mid sacrum. IMPRESSION: No acute fracture or dislocation. ACT 112: Negative or not required by law. The above report was generated using voice recognition software. It may contain grammatical, syntax o r spelling errors. Electronically signed by: Boogie Burden M.D. 08/08/2023 5:46 PM
[2023-08-08] MEDS ORDERED: OPTIRAY 320 500ml IV ONE (17:55)
--- NOTE | 2023-08-08 18:13 | CT Scan Report ---
CT head/brain wo con CLINICAL HISTORY: 87 years-old Male with trauma. Acute head trauma TECHNIQUE: Multiple axial CT images of the head were obtained without contrast. A dose lowering tech nique was utilized adhering to the principles of ALARA. CT DOSE: 3580.92 mGy.cm COMPARISON: 12/20/2020 FINDINGS: No acute intracranial hemorrhage, midline shift, intra-axial mass, hydrocephalus, territorial ischemi a or abnormal extra-axial collection. Involutional changes with chronic microvascular ischemic diseas e. Cerebrovascular calcifications. Unchanged 7 mm calcified extra-axial focus adjacent to the right t emporal lobe on image 13 series 2. The calvarium is intact. Prior bilateral lens repair. The paranasal sinuses, mastoid air cells, and m iddle ear cavities are clear. IMPRESSION: No acute intracranial abnormality or calvarial fracture. ACT 112: Negative or not required by law. The above report was generated using voice recognition software. It may contain grammatical, syntax o r spelling errors. Electronically signed by: Boogie Burden M.D. 08/08/2023 6:11 PM
--- NOTE | 2023-08-08 18:21 | CT Scan Report ---
CT cervical spine wo con CLINICAL HISTORY: 87 years-old Male with trauma. Acute head and neck injury status post fall COMPARISON: Head CT of same day TECHNIQUE: Multiple axial CT images of the cervical spine were obtained without contrast. A dose low ering technique was utilized adhering to the principles of ALARA. FINDINGS: Moderate multilevel intervertebral disc space narrowing with moderate to advanced spondylot ic spurring and facet arthrosis. Nuchal ligament calcifications. Severe degeneration at C1-C2 with pa rtially calcified pannus posterior to the dens. The cervical soft tissues appear unremarkable. The v isualized lung apices appear clear. Secretions noted within the airway. IMPRESSION: No acute cervical spine fracture or subluxation. ACT 112: Negative or not required by law. The above report was generated using voice recognition software. It may contain grammatical, syntax o r spelling errors. Electronically signed by: Boogie Burden M.D. 08/08/2023 6:20 PM
--- NOTE | 2023-08-08 18:36 | CT Scan Report ---
CHEST CT WITH CONTRAST; CT ABDOMEN AND PELVIS WITH IV CONTRAST ONLY HISTORY: Acute chest and abdominal trauma status post fall trauma TECHNIQUE: Multiaxial CT images of the chest, abdomen and pelvis were performed following the IV admi nistration of 93 cc of Optiray. A dose lowering technique was utilized adhering to the principles o f ALARA. COMPARISON: CT abdomen and pelvis 01/14/2023 FINDINGS: CT CHEST: No large thyroid nodule or lymphadenopathy. Moderate cardiomegaly without pericardial effusion. Exte nsive coronary artery calcifications. Atherosclerosis of the thoracic aorta without aneurysm or disse ction. Unremarkable pulmonary artery. There is no pneumothorax, pleural effusion or pulmonary edema. Mild mucous plugging with bronchial wall thickening suggestive of bronchitis or reactive airway disea se. Mild subsegmental bibasilar prominent opacities suggestive of atelectasis. There are no suspiciou s pulmonary nodules or masses identified. Unremarkable soft tissues. Degenerative changes of the shoulders and spine. No acute fracture identif ied. CT ABDOMEN/PELVIS: No free air. Unremarkable spleen, mildly atrophic pancreas and adrenal glands. Cholelithiasis with eq uivocal choledocholithiasis, image 164 series 11. No significant biliary ductal dilation. Cortical th inning of the kidneys with a few bilateral renal cysts. Posey catheter noted within a decompressed ur inary bladder. Chronic 5 mm calculus in the distal left ureter just proximal to the ureterovesicular junction. Heterogeneous appearance of the enlarged prostate. Atherosclerosis of the aorta. No lymphad enopathy. Small hiatal hernia. No bowel obstruction or bowel wall thickening. Colonic diverticulosis. Unremarka ble soft tissues. No acute fracture. 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 Unchanged sub centimeter metallic density focus noted posterior to the right mid sacrum on image 303. IMPRESSION: 1. No acute posttraumatic intrathoracic, intra-abdominal or intrapelvic abnormality. 2. No acute fracture identified. 3. Cholelithiasis with probable choledocholithiasis. No biliary ductal dilation. Correlate with serum bilirubin. 4. Unchanged positioning of the 5 mm calculus within the distal left ureter without obstructive uropa thy. 5. Additional findings as above. ACT 112: Negative or not required by law. Electronically signed by: Boogie Burden M.D. 08/08/2023 6:34 PM
--- NOTE | 2023-08-08 20:12 | History & Physical Report ---
Date of Service August 08, 2023 Assessment & Plan (1) DINORAH (acute kidney injury): Plan: 87yo male presenting from home after being found down in the bathroom. Patient with unknown down time. He is afebrile, tachycardic and tachypneic. Saturations adequate while awake, decrease with sleep. He appears very dehydrated on exam. Hemoconcentrated with Hgb=18.9, Hct=55.3. Na elevated at 148. BUN of 86 from prior value of 17 and Cr of 1.78. Elevation of lactate has improved 2.6 --> 2.4 after hydration Possible underlying infection - consider GI/possible cholangitis given patient's history, LFTs and findings on CT -Admit to PCU -Continue IVF - LR at 125mL/hr x 2 liters -Avoid nephrotoxic agents -Renal dosing where needed -Repeat chemistry in AM -Repeat troponin in AM -Repeat LFTs in AM -Empiric Zosyn -Repeat LFTs in the AM - if worsened or persistent elevation of bilirubin would consider obtaining MRCP, possible GI and Surgical consults. Patient has had cholangitis in the past - he was seen at [facility] [place]. There was discussion about a cholecystectomy, however, this surgery was not performed. Patient did cough after being given water through a straw and mouth swabs in the ER -Will keep NPO -Maintain aspiration precautions -Speech/Swallow evaluation appreciated (2) Rhabdomyolysis: Plan: Patient with elevation of CT to 1556. Found down, unknown down time. -LR at 125mL/hr -Repeat CK in AM -Hold statin (3) Diabetes mellitus type II, uncontrolled: Plan: Chronic. Last HgbA1C on record from 05/18/23 = 8.4 -Hold empagliflozin, semaglutide, glipizide and metformin -Lantus 10u BID, ISS -Goal blood sugar 110 - 140 (4) Hypertension: Plan: Chronic. Blood pressure well controlled -Hold Indapamide and Enalapril for now to monitor BP trend (5) Hypercholesterolemia: Plan: Chronic. -Hold statin F/E/N - LR at 125mL/hr x 2L, monitor electrolytes, NPO for now pending swallow evaluation Ppx - Heparin Code - Full per discussion with patient Dispo - Admit to PCU History of Present Illness Chief Complaint: found down Primary Care Provider: MD Koffi Milian is an 87yo male with history of HTN, HLP, DM and prior cholangitis presenting from home after being found down by family. Patient lives alone and is fairly independent. He has multiple family members nearby that provide support. Patient was last seen well on 08/04/23 and a family member spoke with him and he was normal on 08/06/23. This morning he did not answer his phone so his daughter went to check on him and he was found down in the bathroom. His cane was in the tub and the patient was laying on his back with his legs draped over the tub. His daughter reports that patient was awake but confused, incontinent of both stool and urine. Daughter reports that he had a lot of phlegm and a very dry mouth. Patient offers no complaints at this time. ER Course: NSS x 1L Allergies Allergy/AdvReac Type Severity Reaction Status Date / Time No Known Allergies Allergy Unknown Verified 08/08/23 17:09 Home Medications Medication Instructions Recorded Confirmed Type ibuprofen 200 mg tablet (Advil) 200 mg PO Q6H PRN Pain 09/06/19 08/08/23 History aspirin 81 mg tablet,delayed 81 mg PO DAILY 12/20/20 08/08/23 History release atorvastatin 40 mg tablet 40 mg PO HS #90 tabs 08/01/22 08/08/23 Rx indapamide 1.25 mg tablet 1.25 mg PO QAM #90 tabs 08/01/22 08/08/23 Rx metformin 1,000 mg tablet 1,000 mg PO BID #180 tabs 08/01/22 08/08/23 Rx tamsulosin 0.4 mg capsule (Flomax) 0.4 mg PO DAILY #90 caps 08/01/22 08/08/23 Rx glipizide 5 mg tablet, extended 5 mg PO DAILY #90 tabs 02/13/23 08/08/23 Rx release 24 hr cholecalciferol (vitamin D3) 1,250 50,000 unit PO .ONCE WEEKLY #12 04/03/23 08/08/23 Rx mcg (50,000 unit) capsule caps empagliflozin 25 mg tablet 25 mg PO DAILY #90 tabs 04/03/23 08/08/23 Rx (Jardiance) semaglutide 3 mg tablet (Rybelsus) 3 mg PO DAILY 30 days #30 tabs 05/22/23 08/08/23 Rx semaglutide 7 mg tablet (Rybelsus) 7 mg PO DAILY #30 tabs 05/22/23 08/08/23 Rx enalapril maleate 10 mg tablet 10 mg PO BID #180 tabs 05/30/23 08/08/23 Rx Past Med/Surg History Medical History Cholelithiasis History of acute cholangitis SNHL (sensorineural hearing loss) Hypercholesterolemia Hypertension Diabetes Hemorrhoids Surgical History Hx of cholecystectomy Hx of transurethral resection of prostate History of arthroplasty of knee Hx of hernia repair Hx of appendectomy Family History Mother Diabetes Father Heart disease Denies family history of Ovarian cancer Prostate cancer Myocardial infarction Breast cancer Colorectal cancer Social History Smoking Status: Never smoker Second Hand Exposure: Yes; Hx Alcohol Use: No Hx Substance Use: No Preferred Language: Divehi Visual Impairment: No Limitations Hearing Ability: Use of Hearing Aid marital status: / Current Living Situation: Alone current occupational status: retired How many Children do You have: 5 Feels Safe at Home: Yes Childhood Exposure to Second-Hand Smoke: Yes Diet: regular during the past year weight has: remained stable Dental Care, Regularly: Yes Physical Activity Frequency: 1-2 Times per Week Seatbelt Use: always Sunscreen Use: Yes Review of Systems Review of Systems: All systems reviewed & are unremarkable except as noted in HPI & below Physical Exam Physical Exam: General: patient ill in appearance, oriented to self and location Skin: warm, dry, intact, no rashes or lesions HEENT: NC/AT, PERRL, EOMI, anicteric sclera, conjunctiva without injection, external ear normal to inspection and nontender, nares patent, very dry mucus membranes, dentition intact, no oropharyngeal lesions, neck supple, trachea midline, no LAD, no thyromegaly, no JVD Heart: +S1/S2, regular, no m/r/g Lungs: equal air entry bilaterally, no rales/rhonchi/wheezes Abd: +BS, soft, NT/ND, no masses/organomegaly/ascites Ext: warm, 2+ pulses in UE/LE bilaterally, no clubbing/cyanosis or edema Neuro: nonfocal, patient AA&O x 4, speech intact, no facial droop, moving all extremities on command with equal strength 5/5 Results & Data Results & Data Vital Signs (Past 12 Hours) Vital Signs Temp Pulse Pulse Resp BP BP Pulse Ox 08/08/23 19:00 112 H 36 H 135/94 95 08/08/23 17:51 107 H 34 H 150/92 H 95 08/08/23 16:19 36.4 C L 106 H 33 H 133/98 92 08/08/23 16:18 118 H O2 Del Method O2 Flow Rate 08/08/23 19:00 Nasal Cannula 4 08/08/23 17:51 Nasal Cannula 3 08/08/23 16:19 Room Air 3 08/08/23 16:18 Laboratory Results Laboratory Results WBC 16.87 K/ul (4.8-10.8) H 08/08/23 16:20 RBC 6.41 M/uL (4.70-6.10) H 08/08/23 16:20 Hgb 18.9 g/dl (14.0-18.0) H 08/08/23 16:20 POC Hgb 19.4 g/dl (14.0-18.0) H 08/08/23 16:29 Hct 55.3 % (42.0-52.0) H 08/08/23 16:20 POC Hct 57 % (42-52) H 08/08/23 16:29 MCV 86.3 fL (80.0-100.0) 08/08/23 16:20 MCH 29.5 pg (25.0-34.0) 08/08/23 16:20 MCHC 34.2 g/dL (32.0-36.0) 08/08/23 16:20 RDW Std Deviation 49.0 fL (36.4-46.3) H 08/08/23 16:20 RDW Coeff of Gato 17.2 % (11.5-14.5) H 08/08/23 16:20 Plt Count 246 K/uL (130-400) 08/08/23 16:20 MPV 12.4 fL (9.4-12.4) 08/08/23 16:20 Immature Gran % (Auto) 0.5 % 08/08/23 16:20 Neut % (Auto) 78.5 % 08/08/23 16:20 Lymph % (Auto) 10.6 % 08/08/23 16:20 [place] % (Auto) 10.2 % 08/08/23 16:20 Eos % (Auto) 0.0 % 08/08/23 16:20 Baso % (Auto) 0.2 % 08/08/23 16:20 Neut # (Auto) 13.26 K/uL (1.40-6.50) H 08/08/23 16:20 Lymph # (Auto) 1.78 K/uL (1.20-3.40) 08/08/23 16:20 [place] # (Auto) 1.72 K/uL (0.11-0.59) H 08/08/23 16:20 Eos # (Auto) 0.00 K/uL (0.00-0.50) 08/08/23 16:20 Baso # (Auto) 0.03 K/uL (0.00-0.20) 08/08/23 16:20 Immature Gran # (Auto) 0.08 K/uL (0.01-0.20) 08/08/23 16:20 PT 12.0 Seconds (9.0-12.0) 08/08/23 16:20 INR 1.1 (0.9-1.1) 08/08/23 16:20 POC Sodium 148 mmol/L (135-144) H 08/08/23 16:29 Sodium 148 mmol/L (136-145) H 08/08/23 16:20 POC Potassium 4.3 mmol/L (3.3-5.0) 08/08/23 16:29 Potassium 4.4 mmol/L (3.5-5.1) 08/08/23 16:20 POC Chloride 117 mmol/L (101-112) H 08/08/23 16:29 Chloride 113 mmol/L (98-107) H 08/08/23 16:20 Carbon Dioxide 22 mmol/L (21-32) 08/08/23 16:20 POC Total CO2 21 mmol/L (24-31) L 08/08/23 16:29 Anion Gap 13 (3-11) H 08/08/23 16:20 POC Anion Gap 15.0 mmol/L (16-25) L 08/08/23 16:29 POC BUN 79 mg/dl (7-18) H 08/08/23 16:29 BUN 86 mg/dl (6-23) H 08/08/23 16:20 Creatinine 1.78 mg/dl (0.6-1.4) H 08/08/23 16:20 POC Creatinine 1.9 mg/dl (0.6-1.3) H 08/08/23 16:29 Est Cr Clr Drug Dosing Not Reportable 08/08/23 16:20 Est GFR ( Amer) 38.3 ml/min 08/08/23 16:20 Est GFR (Non-Af Amer) 33.1 ml/min 08/08/23 16:20 BUN/Creatinine Ratio 48.3 (10-20) H 08/08/23 16:20 Glucose 330 mg/dl (70-99(Fasting)) H* 08/08/23 16:20 POC Glucose (other) 335 mg/dl (70-99) H 08/08/23 16:29 Lactate 2.4 mmol/L (0.4-2.0) H* 08/08/23 19:07 Calcium 10.0 mg/dl (8.6-10.3) 08/08/23 16:20 POC Ioniz Calcium Silvana 1.19 mmol/l (1.12-1.32) 08/08/23 16:29 Magnesium 3.1 mg/dl (1.7-2.4) H 08/08/23 16:20 Total Bilirubin 6.2 mg/dl (0.2-1.0) H 08/08/23 16:20 AST 53 U/L (13-39) H 08/08/23 16:20 ALT 42 U/L (7-52) 08/08/23 16:20 Alkaline Phosphatase 82 U/L (34-104) 08/08/23 16:20 Total Creatine Kinase 1556 U/L (30-223) H 08/08/23 16:20 Troponin I High Sens 61.7 pg/ml (0-20) H* 08/08/23 16:20 Total Protein 7.2 gm/dl (6.0-8.3) 08/08/23 16:20 Albumin 3.8 gm/dl (3.4-5.0) 08/08/23 16:20 Globulin 3.4 gm/dl (2.5-4.0) 08/08/23 16:20 Albumin/Globulin Ratio 1.1 (0.9-2) 08/08/23 16:20 Lipase 23 U/L (11-82) 08/08/23 16:20 Procalcitonin 0.54 ng/ml (0-0.5) H 08/08/23 16:20 TSH 1.047 uIu/ml (0.300-4.500) 08/08/23 16:20 Urine Color Dark Yellow 08/08/23 16:40 Urine Appearance Clear (Clear) 08/08/23 16:40 Urine pH 5.5 (4.5-7.5) 08/08/23 16:40 Ur Specific [place] 1.029 (1.000-1.030) 08/08/23 16:40 Urine Protein 2+ (Negative) H 08/08/23 16:40 Urine Glucose (UA) 3+ (Negative) H 08/08/23 16:40 Urine Ketones Trace (Negative) H 08/08/23 16:40 Urine Blood Negative (Negative) 08/08/23 16:40 Urine Nitrite Negative (Negative) 08/08/23 16:40 Urine Bilirubin 1+ (Negative) H 08/08/23 16:40 Urine Urobilinogen Negative (Negative) 08/08/23 16:40 Ur Leukocyte Esterase Negative (Negative) 08/08/23 16:40 Urine WBC (Auto) 1-5 /hpf (0-5) 08/08/23 16:40 Urine RBC (Auto) 5-10 /hpf (0-4) H 08/08/23 16:40 U Hyaline Cast (Auto) 5-10 /lpf (0-5) H 08/08/23 16:40 U Epithel Cells (Auto) 5-10 /lpf (0-5) H 08/08/23 16:40 Urine Bacteria (Auto) Negative (Negative) 08/08/23 16:40 Impressions Abdomen/Pelvis CT 08/08/23 16:[address] WITH CONTRAST; CT ABDOMEN AND PELVIS WITH IV CONTRAST ONLY HISTORY: Acute chest and abdominal trauma status post fall trauma TECHNIQUE: Multiaxial CT images of the chest, abdomen and pelvis were performed following the IV administration of 93 cc of Optiray. A dose lowering technique was utilized adhering to the principles of ALARA. COMPARISON: CT abdomen and pelvis 01/14/2023 FINDINGS: CT CHEST: No large thyroid nodule or lymphadenopathy. Moderate cardiomegaly without pericardial effusion. Extensive coronary artery calcifications. Atherosclerosis of the thoracic aorta without aneurysm or dissection. Unremarkable pulmonary artery. There is no pneumothorax, pleural effusion or pulmonary edema. Mild mucous plugging with bronchial wall thickening suggestive of bronchitis or reactive airway disease. Mild subsegmental bibasilar prominent opacities suggestive of atelectasis. There are no suspicious pulmonary nodules or masses identified. Unremarkable soft tissues. Degenerative changes of the shoulders and spine. No acute fracture identified. CT ABDOMEN/PELVIS: No free air. Unremarkable spleen, mildly atrophic pancreas and adrenal glands. Cholelithiasis with equivocal choledocholithiasis, image 164 series 11. No significant biliary ductal dilation. Cortical thinning of the kidneys with a few bilateral renal cysts. Posey catheter noted within a decompressed urinary bladder. Chronic 5 mm calculus in the distal left ureter just proximal to the ureterovesicular junction. Heterogeneous appearance of the enlarged prostate. Atherosclerosis of the aorta. No lymphadenopathy. Small hiatal hernia. No bowel obstruction or bowel wall thickening. Colonic diverticulosis. Unremarkable soft tissues. No acute fracture. 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 Unchanged subcentimeter metallic density focus noted posterior to the right mid sacrum on image 303. IMPRESSION: 1. No acute posttraumatic intrathoracic, intra-abdominal or intrapelvic abnormality. 2. No acute fracture identified. 3. Cholelithiasis with probable choledocholithiasis. No biliary ductal dilation. Correlate with serum bilirubin. 4. Unchanged positioning of the 5 mm calculus within the distal left ureter without obstructive uropathy. 5. Additional findings as above. ACT 112: Negative or not required by law. Electronically signed by: Boogie Burden M.D. 08/08/2023 6:[address] 08/08/23 16:16 CT cervical spine wo con CLINICAL HISTORY: 87 years-old Male with trauma. Acute head and neck injury status post fall COMPARISON: Head CT of same day TECHNIQUE: Multiple axial CT images of the cervical spine were obtained without contrast. A dose lowering technique was utilized adhering to the principles of ALARA. FINDINGS: Moderate multilevel intervertebral disc space narrowing with moderate to advanced spondylotic spurring and facet arthrosis. Nuchal ligament calcifications. Severe degeneration at C1-C2 with partially calcified pannus posterior to the dens. The cervical soft tissues appear unremarkable. The visualized lung apices appear clear. Secretions noted within the airway. IMPRESSION: No acute cervical spine fracture or subluxation. ACT 112: Negative or not required by law. The above report was generated using voice recognition software. It may contain grammatical, syntax or spelling errors. Electronically signed by: Boogie Burden M.D. 08/08/2023 6:[address] 08/08/23 16:[address] WITH CONTRAST; CT ABDOMEN AND PELVIS WITH IV CONTRAST ONLY HISTORY: Acute chest and abdominal trauma status post fall trauma TECHNIQUE: Multiaxial CT images of the chest, abdomen and pelvis were performed following the IV administration of 93 cc of Optiray. A dose lowering technique was utilized adhering to the principles of ALARA. COMPARISON: CT abdomen and pelvis 01/14/2023 FINDINGS: CT CHEST: No large thyroid nodule or lymphadenopathy. Moderate cardiomegaly without pericardial effusion. Extensive coronary artery calcifications. Atherosclerosis of the thoracic aorta without aneurysm or dissection. Unremarkable pulmonary artery. There is no pneumothorax, pleural effusion or pulmonary edema. Mild mucous plugging with bronchial wall thickening suggestive of bronchitis or reactive airway disease. Mild subsegmental bibasilar prominent opacities suggestive of atelectasis. There are no suspicious pulmonary nodules or masses identified. Unremarkable soft tissues. Degenerative changes of the shoulders and spine. No acute fracture identified. CT ABDOMEN/PELVIS: No free air. Unremarkable spleen, mildly atrophic pancreas and adrenal glands. Cholelithiasis with equivocal choledocholithiasis, image 164 series 11. No significant biliary ductal dilation. Cortical thinning of the kidneys with a few bilateral renal cysts. Posey catheter noted within a decompressed urinary bladder. Chronic 5 mm calculus in the distal left ureter just proximal to the ureterovesicular junction. Heterogeneous appearance of the enlarged prostate. Atherosclerosis of the aorta. No lymphadenopathy. Small hiatal hernia. No bowel obstruction or bowel wall thickening. Colonic diverticulosis. Unremarkable soft tissues. No acute fracture. 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 Unchanged subcentimeter metallic density f ocus noted posterior to the right mid sacrum on image 303. IMPRESSION: 1. No acute posttraumatic intrathoracic, intra-abdominal or intrapelvic abnormality. 2. No acute fracture identified. 3. Cholelithiasis with probable choledocholithiasis. No biliary ductal dilation. Correlate with serum bilirubin. 4. Unchanged positioning of the 5 mm calculus within the distal left ureter without obstructive uropathy. 5. Additional findings as above. ACT 112: Negative or not required by law. Electronically signed by: Boogie Burden M.D. 08/08/2023 6:[address] 08/08/23 16:16 CT head/brain wo con CLINICAL HISTORY: 87 years-old Male with trauma. Acute head trauma TECHNIQUE: Multiple axial CT images of the head were obtained without contrast. A dose lowering technique was utilized adhering to the principles of ALARA. CT DOSE: 3580.92 mGy.cm COMPARISON: 12/20/2020 FINDINGS: No acute intracranial hemorrhage, midline shift, intra-axial mass, hydrocephalus, territorial ischemia or abnormal extra-axial collection. Involutional changes with chronic microvascular ischemic disease. Cerebrovascular calcifications. Unchanged 7 mm calcified extra-axial focus adjacent to the right temporal lobe on image 13 series 2. The calvarium is intact. Prior bilateral lens repair. The paranasal sinuses, mastoid air cells, and middle ear cavities are clear. IMPRESSION: No acute intracranial abnormality or calvarial fracture. ACT 112: Negative or not required by law. The above report was generated using voice recognition software. It may contain grammatical, syntax or spelling errors. Electronically signed by: Boogie Burden M.D. 08/08/2023 6:11 PM Chest X-Ray 08/08/23 16:17 XR chest 1V portable HISTORY: 87 years-old Male trauma acute chest trauma COMPARISON: 01/14/2023 TECHNIQUE: AP view of the chest FINDINGS: Cardiac silhouette is enlarged. Pulmonary vascular congestion with interstitial coarsening. Unchanged right hemidiaphragmatic elevation. Degenerative changes of the shoulders and spine. IMPRESSION: Cardiomegaly with pulmonary vascular congestion. ACT 112: Negative or not required by law. The above report was generated using voice recognition software. It may contain grammatical, syntax or spelling errors. Electronically signed by: Boogie Burden M.D. 08/08/2023 5:45 PM Pelvis X-Ray 08/08/23 16:17 XR pelvis 1-2V routine HISTORY: 87 years-old Male trauma acute pelvic trauma COMPARISON: 8 01/14/2023 TECHNIQUE: AP view the pelvis FINDINGS: Moderate osteoarthritis of the hips. No acute fracture, dislocation or avascular necrosis. Arterial calcifications. Unchanged metallic density focus projected over the posterior right mid sacrum. IMPRESSION: No acute fracture or dislocation. ACT 112: Negative or not required by law. The above report was generated using voice recognition software. It may contain grammatical, syntax or spelling errors. Electronically signed by: Boogie Burden M.D. 08/08/2023 5:46 PM ECG Additional Comments: DICTATED BY: Brendan Dominguez MD Test Reason : Blood Pressure : / mmHG Vent. Rate : 118 BPM Atrial Rate : 118 BPM P-R Int : 166 ms QRS Dur : 116 ms QT Int : 336 ms P-R-T Axes : 043 042 -11 degrees QTc Int : 470 ms Sinus tachycardia Right bundle branch block Abnormal ECG When compared with ECG of 14-JAN-2023 15:20, Non-specific change in ST segment in Inferior leads Nonspecific T wave abnormality no longer evident in Lateral leads Confirmed by Brendan Dominguez ([id number]) on 08/08/2023 4:34:36 PM Referred By: Confirmed By:Fred Dominguez Code Status & VTE Plan VTE Prophylaxis Plan VTE Prophylaxis will be ordered: Yes PG Care Time/CCT Total # of Minutes Spent Total Time Spent with Patient: Total time spent is greater than 50% in coordination of care (as documented) at patient's floor/unit and/or counseling patient: Coding Level of Care Code 43834 INT INP/OBS CARE 3/75MIN Diagnoses DINORAH (acute kidney injury) N17.9 Rhabdomyolysis M62.82 Diabetes mellitus type II, uncontrolled E11.65 Hypertension I10 Hypercholesterolemia E78.00
[2023-08-08] MEDS ORDERED: GLUCAGON FOR INJ 1 MG VIAL SQ PRN (22:08)
[2023-08-08] MEDS ORDERED: GLUCOSE 40% GEL 15 GM TUBE PO PRN (22:08)
[2023-08-08] MEDS ORDERED: CARBOHYDRATES FOR HYPOGLYCEMIA PO PRN (22:08)
[2023-08-08] MEDS ORDERED: DEXTROSE 50% 50 ML SYRINGE IV PRN (22:08)
[2023-08-08] MEDS ORDERED: GLUCOSE 10 TAB/TUBE PO PRN (22:08)
[2023-08-08] MEDS ORDERED: ACETAMINOPHEN 325 MG TAB PO PRN (22:08)
[2023-08-08] MEDS ORDERED: ATORVASTATIN 40 MG TAB PO SCH (22:08)
[2023-08-08] MEDS ORDERED: LANTUS PER UNIT CHARGE SQ SCH (22:08)
[2023-08-08] MEDS ORDERED: ONDANSETRON INJ 2 MG/ML 2 ML VIAL IV PRN (22:08)
[2023-08-08] MEDS ORDERED: PIPERACILLIN/TAZOBACTAM 4.5 GM in DEXTROSE 5% MINI-B 100 ML IV ONE (22:30)
[2023-08-08] MEDS: INSULIN ASPART PER UNIT CHARGE SC SCH (22:51)
[2023-08-08] MEDS: HEPARIN SOD 5,000 UNIT/0.5 ML VIAL SQ SCH (22:51)
[2023-08-08] MEDS: LACTATED RINGER'S 1,000 ML IV SCH (23:37)
[2023-08-09 01:18] LABS: Adenovirus PCR Not Detected (NotDetected); Bordetella parapertussis PCR Not Detected (NotDetected); Bordetella pertussis PCR Not Detected (NotDetected); Chlamydia pneumoniae PCR Not Detected (NotDetected); Coronavirus 229E PCR Not Detected (NotDetected); Coronavirus CoV-2 (COVID19)PCR Not Detected (NotDetected); Coronavirus HKU1 PCR Not Detected (NotDetected); Coronavirus NL63 PCR Not Detected (NotDetected); Coronavirus OC43PCR Not Detected (NotDetected); Human Metapneumovirus PCR Not Detected (NotDetected); Influenza A PCR Not Detected (NotDetected); Influenza B PCR Not Detected (NotDetected); Mycoplasma pneumoniae PCR Not Detected (NotDetected); Parainfluenza Virus 1 PCR Not Detected (NotDetected); Parainfluenza Virus 2 PCR Not Detected (NotDetected); Parainfluenza Virus 3 PCR Not Detected (NotDetected); Parainfluenza Virus 4 PCR Not Detected (NotDetected); Respiratory Syncytial VirusPCR Not Detected (NotDetected); Rhinovirus/Enterovirus PCR Not Detected (NotDetected)
[2023-08-09 04:24] LABS: Basophils # (auto) 0.04 K/uL (0.00-0.20); Basophils % (auto) 0.3 %; Eosinophils # (auto) 0.01 K/uL (0.00-0.50); Eosinophils % (auto) 0.1 %; Hematocrit (blood only) 54.4 % (42.0-52.0); Hemoglobin 17.7 g/dl (14.0-18.0); Immature Granulocytes # (auto) 0.09 K/uL (0.01-0.20); Immature Granulocytes % (auto) 0.6 %; Lymphocytes # (auto) 1.47 K/uL (1.20-3.40); Lymphocytes % (auto) 9.7 %; Mean Corpuscular Hgb Conc 32.5 g/dL (32.0-36.0); Mean Platelet Volume 12.1 fL (9.4-12.4); Monocytes # (auto) 1.76 K/uL (0.11-0.59); Monocytes % (auto) 11.6 %; Neutrophils # (auto) 11.85 K/uL (1.40-6.50); Neutrophils % (auto) 77.7 %; Platelet Count 204 K/uL (130-400); RDW Coefficient of Variation 16.4 % (11.5-14.5); RDW Standard Deviation 51.7 fL (36.4-46.3); Red Blood Count 6.11 M/uL (4.70-6.10); White Blood Count 15.22 K/ul (4.8-10.8)
[2023-08-09 04:38] LABS: Albumin Level 3.3 gm/dl (3.4-5.0); BUN Creatinine Ratio 55.6 (10-20); Bilirubin Direct 0.7 mg/dl (0-0.2); Bilirubin,Total 4.6 mg/dl (0.2-1.0); Calcium 9.4 mg/dl (8.6-10.3); Creatinine Clr Calc Pharmacy 31.6 ml/min; Est GFR (African American) 40.8 ml/min; Est GFR (Non-African American) 35.2 ml/min; Potassium 4.3 mmol/L (3.5-5.1); Total Protein 6.6 gm/dl (6.0-8.3); Troponin I High Sensitivity 64.5 pg/ml (0-20)
[2023-08-09] MEDS: PIPERACILLIN/TAZOBACTAM 4.5 GM in DEXTROSE 5% MINI-B 100 ML IV SCH ×3 (05:03→19:51)
[2023-08-09] MEDS ORDERED: Nursing to Pharmacy Communication SCH (05:45)
[2023-08-09] MEDS: INSULIN ASPART PER UNIT CHARGE SC SCH ×4 (06:24→22:40)
[2023-08-09] MEDS: LACTATED RINGER'S 1,000 ML IV SCH (07:28)
[2023-08-09] MEDS: LANTUS PER UNIT CHARGE SQ SCH ×2 (08:28→22:40)
[2023-08-09] MEDS: TAMSULOSIN HCL 0.4 MG CAP PO SCH (08:34)
[2023-08-09] MEDS: ASPIRIN 81 MG ECTAB PO SCH (08:34)
[2023-08-09] MEDS: HEPARIN SOD 5,000 UNIT/0.5 ML VIAL SQ SCH ×2 (09:10→22:41)
[2023-08-09] MEDS: SODIUM CHLORIDE 0.45 % 1,000 ML IV SCH ×2 (11:26→22:46)
--- NOTE | 2023-08-09 12:17 | XCELERA ---
[id number]
--- NOTE | 2023-08-09 15:45 | Hospitalist Progress Note ---
Date of Service August 09, 2023 Assessment & Plan (1) DINORAH (acute kidney injury): Plan: From volume depletion. Serum osmolality 356. Continue IV fluids. Monitor intake and output. Serial labs (2) Hyperbilirubinemia: Plan: Known cholelithiasis and choledocholithiasis. HIDA scan pending. Continue IV antibiotics for now (3) Cholelithiasis: Plan: Known. HIDA scan pending. Continue IV antibiotics for now (4) Rhabdomyolysis: Plan: Mild to moderate elevation of creatinine kinase. Continue IV fluids. Serial labs . Statin therapy is on hold (5) Diabetes mellitus type II, uncontrolled: Plan: ADA diet. Oral medications are on hold. Basal insulin coverage and sliding scale coverage for now. (6) Hypertension: Plan: Indapamide and enalapril are on hold due to volume depletion and acute kidney injury. (7) Hypercholesterolemia: Plan: Statin therapy is on hold due to abnormal liver tests and elevated CK. Plan To be determined Admission and Anticipated Discharge Date Admission Date: August 08, 2023 Subjective Alert and oriented. Very weak however. Daughters are at the bedside. He has known gallbladder disease. Total bilirubin is elevated on admission. HIDA scan is pending. Serum osmolarity is 356. He is volume depleted. He was found on the floor by his daughter and CK is mildly elevated on admission. Continue IV fluids and monitor. BUN and creatinine elevated on admission. Continue intravenous Zosyn and IV fluids. Await culture results. Review of Systems 2 Review of Systems: Constitutional-no fever or chills ENT-no blurred vision, no double vision, no epistaxis Respiratory-occasional cough. No phlegm. No hemoptysis. No pleuritic pain. No wheezing Cardiac-no palpitations, no chest pain, no syncope GI-poor appetite. Denies nausea, vomiting, diarrhea, melena, hematochezia -no urinary retention, no urinary incontinence, no dysuria, no hematuria Musculoskeletal-no joint pain, no muscle tenderness Skin-no bruising, no rashes, no pruritus. Neuro-generalized weakness. Psych-no depression, no anxiety Physical Exam 2 Physical Exam: General-alert and oriented x3, no fevers, no chills. Appears weak HEENT-head atraumatic and normocephalic, pupils equal and reactive to light, extraocular muscles intact. No scleral icterus Neck-no lymphadenopathy or thyromegaly, trachea midline Chest-diminished breath sounds bilaterally. No rhonchi. No wheezing Cardiac-regular rate and rhythm, normal S1 and S2 Abdomen-normal bowel sounds, nontender, no hepatosplenomegaly Extremities-no cyanosis, clubbing, or edema Neuro-cranial nerves II through XII intact, motor and sensory function within normal limits, strength symmetrical with generalized weakness, no focal deficits Psych-flat affect Results & Data Results & Data Vital Signs (Past 12 Hours) Vital Signs Pulse Pulse Resp BP BP Pulse Ox O2 Del Method 08/09/23 14:39 100 H 12 120/72 94 Nasal Cannula 08/09/23 11:49 Oxymask 08/09/23 07:19 99 H 08/09/23 06:00 101 H 27 H 125/79 93 Oxymask 08/09/23 04:00 100 H 30 H 115/87 90 Oxymask O2 Flow Rate 08/09/23 14:39 6 08/09/23 11:49 6 08/09/23 07:19 08/09/23 06:00 8 08/09/23 04:00 8 Laboratory Results 08/09/23 03:56 08/09/23 03:56 PG Care Time/CCT Total # of Minutes Spent Total Time Spent with Patient: Total time spent is greater than 50% in coordination of care (as documented) at patient's floor/unit and/or counseling patient: Coding Level of Care Code 93957 SUB INP/OBS CARE 3/50MIN Diagnoses DINORAH (acute kidney injury) N17.9 Hyperbilirubinemia E80.6 Cholelithiasis K80.20 Rhabdomyolysis M62.82 Diabetes mellitus type II, uncontrolled E11.65 Hypertension I10 Hypercholesterolemia E78.00
[2023-08-10] MEDS ORDERED: Nursing to Pharmacy Communication SCH (01:45)
[2023-08-10] MEDS: PIPERACILLIN/TAZOBACTAM 4.5 GM in DEXTROSE 5% MINI-B 100 ML IV SCH ×3 (05:07→20:25)
[2023-08-10 06:40] LABS: Basophils # (auto) 0.05 K/uL (0.00-0.20); Basophils % (auto) 0.4 %; Eosinophils # (auto) 0.22 K/uL (0.00-0.50); Eosinophils % (auto) 1.9 %; Hematocrit (blood only) 50.3 % (42.0-52.0); Hemoglobin 15.7 g/dl (14.0-18.0); Immature Granulocytes # (auto) 0.09 K/uL (0.01-0.20); Immature Granulocytes % (auto) 0.8 %; Lymphocytes # (auto) 1.96 K/uL (1.20-3.40); Lymphocytes % (auto) 16.8 %; Mean Corpuscular Hemoglobin 28.6 pg (25.0-34.0); Mean Corpuscular Hgb Conc 31.2 g/dL (32.0-36.0); Mean Corpuscular Volume 91.6 fL (80.0-100.0); Mean Platelet Volume 12.3 fL (9.4-12.4); Monocytes # (auto) 1.27 K/uL (0.11-0.59); Monocytes % (auto) 10.9 %; Neutrophils # (auto) 8.08 K/uL (1.40-6.50); Neutrophils % (auto) 69.2 %; Platelet Count 175 K/uL (130-400); RDW Coefficient of Variation 15.7 % (11.5-14.5); RDW Standard Deviation 52.6 fL (36.4-46.3); Red Blood Count 5.49 M/uL (4.70-6.10); White Blood Count 11.67 K/ul (4.8-10.8)
[2023-08-10] MEDS: SODIUM CHLORIDE 0.45 % 1,000 ML IV SCH (06:48)
[2023-08-10 06:57] LABS: Albumin Globulin Ratio 1.1 (0.9-2); Albumin Level 3.1 gm/dl (3.4-5.0); BUN Creatinine Ratio 50.9 (10-20); Bilirubin,Total 2.7 mg/dl (0.2-1.0); Calcium 8.8 mg/dl (8.6-10.3); Creatinine Clr Calc Pharmacy 32.8 ml/min; Est GFR (African American) 42.7 ml/min; Est GFR (Non-African American) 36.8 ml/min; Globulin 2.8 gm/dl (2.5-4.0); Potassium 3.7 mmol/L (3.5-5.1); Total Protein 5.9 gm/dl (6.0-8.3)
[2023-08-10] MEDS: INSULIN ASPART PER UNIT CHARGE SC SCH ×4 (07:39→21:05)
[2023-08-10] MEDS: TAMSULOSIN HCL 0.4 MG CAP PO SCH (07:44)
[2023-08-10] MEDS: LANTUS PER UNIT CHARGE SQ SCH ×2 (08:34→21:04)
[2023-08-10] MEDS: HEPARIN SOD 5,000 UNIT/0.5 ML VIAL SQ SCH ×2 (08:34→21:05)
[2023-08-10] MEDS: ASPIRIN 81 MG ECTAB PO SCH (08:34)
[2023-08-10] MEDS ORDERED: MoRPHine SULFATE 2 MG/ML CARP IV STA (11:11)
[2023-08-10] MEDS ORDERED: MoRPHine SULFATE 2 MG/ML CARP ONE (11:13)
[2023-08-10] MEDS: D5W AND 1/4NSS 1,000 ML IV SCH (12:14)
--- NOTE | 2023-08-10 13:11 | Nuclear Medicine Report ---
NM hepatobiliary CLINICAL HISTORY: elevated bilirubin, cholelithiasis TECHNIQUE: Following the intravenous injection of 5.5 mCi of Tc-99m labeled Technetium 99m mebrofeni n, multiple images of the upper abdomen were obtained in the anterior projection with uptake measurem ents of the gallbladder obtained. Comparison: Comparison is made to CT abdomen pelvis 07/31/2023 FINDINGS: Sequential images demonstrate normal uptake in the liver, common bile duct, and small bowel . No uptake was seen in the gallbladder including following administration of morphine. IMPRESSION: No uptake was seen in the gallbladder, findings are compatible with acute cholecystitis. Reference: Normal gallbladder ejection fraction is greater than 33%. ACT 112: Negative or not required by law. Electronically signed by: Javad Lerner M.D. 08/10/2023 1:10 PM
--- NOTE | 2023-08-10 16:00 | Gastrointestinal Consultation ---
Date of Consultation August 10, 2023 Assessment & Plan (1) Abnormal LFTs: (2) Choledocholithiasis with acute cholecystitis: Plan ERCP by Dr. Mika Wilburn tomorrow. Procedure was described in detail using diagrams. Family would like to go forward w ERCP. Continue Zosyn Keep NPO. Further recommendations to follow ERCP. Surgery in on board - following pt. History of Present Illness Reason for Consultation: elevated LFT's/choledocholithiasis Requesting Physician: Dr. Beltrán Attending Physician: Israel Da Silva MD History of Present Illness Mr. Koffi Interiano is an 87 yr old male pt of Dr. Rich Warren w a hx of poorly controlled DM2, HTN, HLD, and prior choledocholithiasis in Sep 2022, [place] [facility] [place]ole[place]ectomy was deferred at that time. Two of his daughters are in the room as well as a friend. The daughters provided the info about [place] [facility] [place] He was found laying down in his home, confused and incontinent of urine and feces during the morning of 08/08.Prior to that he was most recently known to be OK when he spoke by phone w a family member on 08/06. Pt is awake, alert, oriented and tells me that he recalls "going down, not falling," but isn't able to provide much more history. On arrival CK was elevated at 1556 ->556 today. LFTs have been elevated but are improving. T Bili 6.2->2.7, ALT 53->32, AST 42->29, Alk Phos 82->65. CT w contrast suggested: Cholelithiasis with probable choledocholithiasis. NM HIDA w suggestion of acute cholecystitis. He is hemodynamically stable w/o fever. HR in the low 90's.O2 sat 92% w O2 at 4L/min. Allergies Allergy/AdvReac Type Severity Reaction Status Date / Time No Known Allergies Allergy Unknown Verified 08/08/23 17:09 Home Medications Medication Instructions Recorded Confirmed Type ibuprofen 200 mg tablet (Advil) 200 mg PO Q6H PRN Pain 09/06/19 08/08/23 History aspirin 81 mg tablet,delayed 81 mg PO DAILY 12/20/20 08/08/23 History release atorvastatin 40 mg tablet 40 mg PO HS #90 tabs 08/01/22 08/08/23 Rx indapamide 1.25 mg tablet 1.25 mg PO QAM #90 tabs 08/01/22 08/08/23 Rx metformin 1,000 mg tablet 1,000 mg PO BID #180 tabs 08/01/22 08/08/23 Rx tamsulosin 0.4 mg capsule (Flomax) 0.4 mg PO DAILY #90 caps 08/01/22 08/08/23 Rx glipizide 5 mg tablet, extended 5 mg PO DAILY #90 tabs 02/13/23 08/08/23 Rx release 24 hr cholecalciferol (vitamin D3) 1,250 50,000 unit PO .ONCE WEEKLY #12 04/03/23 08/08/23 Rx mcg (50,000 unit) capsule caps empagliflozin 25 mg tablet 25 mg PO DAILY #90 tabs 04/03/23 08/08/23 Rx (Jardiance) semaglutide 3 mg tablet (Rybelsus) 3 mg PO DAILY 30 days #30 tabs 05/22/23 08/08/23 Rx semaglutide 7 mg tablet (Rybelsus) 7 mg PO DAILY #30 tabs 05/22/23 08/08/23 Rx enalapril maleate 10 mg tablet 10 mg PO BID #180 tabs 05/30/23 08/08/23 Rx Patient History Medical History Cholelithiasis History of acute cholangitis SNHL (sensorineural hearing loss) Hypercholesterolemia Hypertension Diabetes Hemorrhoids Surgical History Hx of cholecystectomy Hx of transurethral resection of prostate History of arthroplasty of knee Hx of hernia repair Hx of appendectomy Family History Mother Diabetes Father Heart disease Denies family history of Ovarian cancer Prostate cancer Myocardial infarction Breast cancer Colorectal cancer Social History Smoking Status: Unknown if ever smoked Second Hand Exposure: Yes; Hx Alcohol Use: No Hx Substance Use: No Preferred Language: Lao Communication Ability: Impaired Visual Impairment: No Limitations Hearing Ability: Use of Hearing Aid Cotton Cleaner Required: No marital status: / Current Living Situation: Alone current occupational status: retired How many Children do You have: 5 Feels Safe at Home: Yes Childhood Exposure to Second-Hand Smoke: Yes Diet: regular during the past year weight has: remained stable Dental Care, Regularly: Yes Physical Activity Frequency: 1-2 Times per Week Seatbelt Use: always Sunscreen Use: Yes Assistive Devices: Cane Review of Systems Review of Systems: ROS: Gen: + weakness. Denies fevers or weight loss Eyes: No eye redness, or pain, no recent vision changes Resp: No SOB, no cough Cardio: No palpitations/irregular beats, no chest pain GI: No abdominal pain, no nausea/vomiting : Denies pain on urination Skin: No jaundice, itching or new rashes Physical Exam Constitutional: well developed, well nourished and average body habitus; no acute distress Eyes: PERRL, conjunctivae normal, anicteric sclerae ENMT: external ear and nose normal, oropharynx normal Neck: trachea midline, no thyromegaly Respiratory: normal respiratory effort, lungs clear to auscultation Cardiovascular: RRR, no murmur, no edema Gastrointestinal (Abdomen): normal bowel sounds, soft, nontender, no hepatosplenomegaly Skin: no rashes, warm and dry Neurologic: PERRL, EOMI, accommodation nl, no face palsy, no dysarthria Psychiatric: A+Ox3, euthymic affect Lymphatic: no cervical or axillary lymphadenopathy Results & Data Vital Signs (Past 12 Hours) Vital Signs Temp Pulse Pulse Resp BP Pulse Ox O2 Del Method 08/10/23 15:34 36.5 C 91 H 20 124/75 92 Nasal Cannula 08/10/23 13:46 92 08/10/23 12:27 36.5 C 92 H 18 125/76 93 Nasal Cannula 08/10/23 08:48 96 H 08/10/23 08:15 36.9 C 90 18 118/84 94 Nasal Cannula 08/10/23 07:49 Nasal Cannula O2 Flow Rate 08/10/23 15:34 4 08/10/23 13:46 08/10/23 12:27 4 08/10/23 08:48 08/10/23 08:15 4 08/10/23 07:49 4 Laboratory Results WBC 11, Hb 15, Hct 50, Plts 175, Na 151, K 3.7, Cl 120, Co2 25, BUN 83, Cr 1.63 T Bili 2.7, AST 32, ALT 29, Alk Phos 65. Diagnostic Findings CTAP chest/abd/pelvis w IV 08/08/23: CT CHEST: No large thyroid nodule or lymphadenopathy. Moderate cardiomegaly without pericardial effusion. Extensive coronary artery calcifications. Atherosclerosis of the thoracic aorta without aneurysm or dissection. Unremarkable pulmonary artery. There is no pneumothorax, pleural effusion or pulmonary edema. Mild mucous plugging with bronchial wall thickening suggestive of bronchitis or reactive airway disease. Mild subsegmental bibasilar prominent opacities suggestive of atelectasis. There are no suspicious pulmonary nodules or masses identified. Unremarkable soft tissues. Degenerative changes of the shoulders and spine. No acute fracture identified. CT ABDOMEN/PELVIS: No free air. Unremarkable spleen, mildly atrophic pancreas and adrenal glands. Cholelithiasis with equivocal choledocholithiasis, image 164 series 11. No significant biliary ductal dilation. Cortical thinning of the kidneys with a few bilateral renal cysts. Posey catheter noted within a decompressed urinary bladder. Chronic 5 mm calculus in the distal left ureter just proximal to the ureterovesicular junction. Heterogeneous appearance of the enlarged prostate. Atherosclerosis of the aorta. No lymphadenopathy. Small hiatal hernia. No bowel obstruction or bowel wall thickening. Colonic diverticulosis. Unremarkable soft tissues. No acute fracture. 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 Unchanged subcentimeter metallic density focus noted posterior to the right mid sacrum on image 303. IMPRESSION: 1. No acute posttraumatic intrathoracic, intra-abdominal or intrapelvic abnormality. 2. No acute fracture identified. 3. Cholelithiasis with probable choledocholithiasis. No biliary ductal dilation. Correlate with serum bilirubin. 4. Unchanged positioning of the 5 mm calculus within the distal left ureter without obstructive uropathy. 5. Additional findings as above. HIDA 08/10/23: Normal gallbladder ejection fraction is greater than 33%.
--- NOTE | 2023-08-10 16:50 | Hospitalist Progress Note ---
Date of Service August 10, 2023 Assessment & Plan (1) DINORAH (acute kidney injury): Plan: From volume depletion. Serum osmolality 356. Continue IV fluids. Monitor intake and output. Serial labs (2) Hyperbilirubinemia: Plan: Known cholelithiasis and choledocholithiasis. HIDA scan consistent with acute cholecystitis. . General surgery and gastroenterology consultations appreciated. He will undergo ERCP tomorrowAugust 11. N.p.o. after midnight. Clear liquids only for now. Continue intravenous Zosyn, day 3 (3) Cholelithiasis: Plan: With acute cholecystitis. Suspected choledocholithiasis. HIDA scan is consistent with acute cholecystitis. General surgery and gastroenterology consultations appreciated. He will undergo ERCP procedure tomorrowAugust 11 (4) Rhabdomyolysis: Plan: Mild to moderate elevation of creatinine kinase on admission. Now improving. Continue IV fluids. Serial labs . Statin therapy is on hold (5) Diabetes mellitus type II, uncontrolled: Plan: ADA diet. Oral medications are on hold. Basal insulin coverage and sliding scale coverage for now. (6) Hypertension: Plan: Indapamide and enalapril are on hold due to volume depletion and acute kidney injury. (7) Hypercholesterolemia: Plan: Statin therapy is on hold due to abnormal liver tests and elevated CK. Plan To be determined Admission and Anticipated Discharge Date Admission Date: August 08, 2023 Subjective Alert and oriented. He remains very weak. HIDA scan is consistent with acute cholecystitis. General surgery consultations and GI consultations have been placed. He will undergo ERCP tomorrowAugust 11. He remains on intravenous Zosyn. Cardiac echo reveals moderate left ventricular hypertrophy with normal ejection fraction. CK is down to 530 and will eventually normalize. Sodium has increased to 151. He is on 0.225 normal saline hypotonic IV fluids now. Creatinine is stable at 1.6. Review of Systems 2 Review of Systems: Constitutional-no fever or chills ENT-no blurred vision, no double vision, no epistaxis Respiratory-occasional cough. No phlegm. No hemoptysis. No pleuritic pain. No wheezing Cardiac-no palpitations, no chest pain, no syncope GI-poor appetite. Denies nausea, vomiting, diarrhea, melena, hematochezia -no urinary retention, no urinary incontinence, no dysuria, no hematuria Musculoskeletal-no joint pain, no muscle tenderness Skin-no bruising, no rashes, no pruritus. Neuro-generalized weakness. Psych-no depression, no anxiety Physical Exam 2 Physical Exam: General-alert and oriented x3, no fevers, no chills. Appears weak HEENT-head atraumatic and normocephalic, pupils equal and reactive to light, extraocular muscles intact. No scleral icterus Neck-no lymphadenopathy or thyromegaly, trachea midline Chest-diminished breath sounds bilaterally. No rhonchi. No wheezing Cardiac-regular rate and rhythm, normal S1 and S2 Abdomen-normal bowel sounds, no hepatosplenomegaly. Mildly tender to deep palpation in the right upper quadrant Extremities-no cyanosis, clubbing, or edema Neuro-cranial nerves II through XII intact, motor and sensory function within normal limits, strength symmetrical with generalized weakness, no focal deficits Psych-flat affect Results & Data Results & Data Vital Signs (Past 12 Hours) Vital Signs Temp Pulse Pulse Resp BP Pulse Ox O2 Del Method 08/10/23 15:34 36.5 C 91 H 20 124/75 92 Nasal Cannula 08/10/23 13:46 92 08/10/23 12:27 36.5 C 92 H 18 125/76 93 Nasal Cannula 08/10/23 08:48 96 H 08/10/23 08:15 36.9 C 90 18 118/84 94 Nasal Cannula 08/10/23 07:49 Nasal Cannula O2 Flow Rate 08/10/23 15:34 4 08/10/23 13:46 08/10/23 12:27 4 08/10/23 08:48 08/10/23 08:15 4 08/10/23 07:49 4 Laboratory Results 08/10/23 05:52 08/10/23 05:52 PG Care Time/CCT Total # of Minutes Spent Total Time Spent with Patient: Total time spent is greater than 50% in coordination of care (as documented) at patient's floor/unit and/or counseling patient: Coding Level of Care Code 53921 SUB INP/OBS CARE 3/50MIN Diagnoses DINORAH (acute kidney injury) N17.9 Hyperbilirubinemia E80.6 Cholelithiasis K80.20 Rhabdomyolysis M62.82 Diabetes mellitus type II, uncontrolled E11.65 Hypertension I10 Hypercholesterolemia E78.00
--- NOTE | 2023-08-10 17:14 | Surgery Consultation ---
Date of Consultation August 10, 2023 Assessment & Plan (1) Choledocholithiasis with acute cholecystitis: Patient is a 87 yo male with PMH DM2, HTN, HLD, RHONA, QUILEUTE, LUTS, AMS, Rhabdomyolysis, that was brought to the [facility] ER on 08/08/23 after being found by his family on the floor after a fall. In the ER he had an extensive workup and was found to have Cholelithiasis with probable choledocholithiasis. He currently denies N/V, and abdominal pain at present time. Reports a PMH of HTN, Appendectomy, and inguinal hernia repair, and does not take blood thinners. abdomen is non distended, soft, and TTP in RUQ reports pressure, unable to rate pain on a scale WBC 11.6 T Bili. 2.7 Continue IV antibiotics IV analgesics NPO at [facility] GI is planning an ERCP for tomorrow Will plan for a Laparoscopic cholecystectomy after ERCP as above. this is the second time in 6 months.... I believe best option would be lap josh at same time as ERCP to limit anesthesia.... discussed risks ( bleeding/infection/blood clots/cva/mi/dvt/bile duct leak or injury/injury to other organs etc...). we also discussed other options such as ERCP alone, perc josh tube or simple observation with antibiotics... spoke to his daughter Puja...both she and her father agree and want lap johs. questions answered. will plan lap josh tomorrow same time as ERCP History of Present Illness Reason for Consultation: Cholelithiasis with probable choledocholithiasis. Attending Physician: Israel Da Silva MD History of Present Illness Patient is a 87 yo male with PMH DM2, HTN, HLD, RHONA, QUILEUTE, LUTS, AMS, Rhabdomyolysis, that was brought to the [facility] ER on 08/08/23 after being found by his family on the floor after a fall. In the ER he had an extensive workup and was found to have Cholelithiasis with probable choledocholithiasis. He currently denies N/V, and abdominal pain at present time. Reports a PMH of HTN, Appendectomy, and inguinal hernia repair, and does not take blood thinners. Allergies Allergy/AdvReac Type Severity Reaction Status Date / Time No Known Allergies Allergy Unknown Verified 08/08/23 17:09 Home Medications Medication Instructions Recorded Confirmed Type ibuprofen 200 mg tablet (Advil) 200 mg PO Q6H PRN Pain 09/06/19 08/08/23 History aspirin 81 mg tablet,delayed 81 mg PO DAILY 12/20/20 08/08/23 History release atorvastatin 40 mg tablet 40 mg PO HS #90 tabs 08/01/22 08/08/23 Rx indapamide 1.25 mg tablet 1.25 mg PO QAM #90 tabs 08/01/22 08/08/23 Rx metformin 1,000 mg tablet 1,000 mg PO BID #180 tabs 08/01/22 08/08/23 Rx tamsulosin 0.4 mg capsule (Flomax) 0.4 mg PO DAILY #90 caps 08/01/22 08/08/23 Rx glipizide 5 mg tablet, extended 5 mg PO DAILY #90 tabs 02/13/23 08/08/23 Rx release 24 hr cholecalciferol (vitamin D3) 1,250 50,000 unit PO .ONCE WEEKLY #12 04/03/23 08/08/23 Rx mcg (50,000 unit) capsule caps empagliflozin 25 mg tablet 25 mg PO DAILY #90 tabs 04/03/23 08/08/23 Rx (Jardiance) semaglutide 3 mg tablet (Rybelsus) 3 mg PO DAILY 30 days #30 tabs 05/22/23 08/08/23 Rx semaglutide 7 mg tablet (Rybelsus) 7 mg PO DAILY #30 tabs 05/22/23 08/08/23 Rx enalapril maleate 10 mg tablet 10 mg PO BID #180 tabs 05/30/23 08/08/23 Rx Patient History Medical History Cholelithiasis History of acute cholangitis SNHL (sensorineural hearing loss) Hypercholesterolemia Hypertension Diabetes Hemorrhoids Surgical History Hx of cholecystectomy Hx of transurethral resection of prostate History of arthroplasty of knee Hx of hernia repair Hx of appendectomy Family History Mother Diabetes Father Heart disease Denies family history of Ovarian cancer Prostate cancer Myocardial infarction Breast cancer Colorectal cancer Social History Smoking Status: Unknown if ever smoked Second Hand Exposure: Yes; Hx Alcohol Use: No Hx Substance Use: No Preferred Language: Greek Communication Ability: Impaired Visual Impairment: No Limitations Hearing Ability: Use of Hearing Aid Commissary Clerk Required: No marital status: / Current Living Situation: Alone current occupational status: retired How many Children do You have: 5 Feels Safe at Home: Yes Childhood Exposure to Second-Hand Smoke: Yes Diet: regular during the past year weight has: remained stable Dental Care, Regularly: Yes Physical Activity Frequency: 1-2 Times per Week Seatbelt Use: always Sunscreen Use: Yes Assistive Devices: Cane Review of Systems Constitutional: no fever and no chills Cardiovascular: no chest pain Gastrointestinal: no abdominal pain, no nausea and no vomiting Musculoskeletal: Hx of fall Physical Exam Physical Exam: patient is alert, and awake Constitutional: cooperative and comfortable; no acute distress Respiratory: normal respiratory effort (wearing 02) and able to speak in complete sentences Cardiovascular: Rate/Rhythm: + tachycardic (91) Gastrointestinal (Abdomen): Inspection/Auscultation: abdomen not distended and no abdominal surgical incision Percussion/Palpation: + abdomen tender (TTP in RUQ reports pressure, pt unable to rate pain on scale ) and abdomen soft; no guarding Genitourinary: has a tamez Results & Data Vital Signs (Past 12 Hours) Vital Signs Temp Pulse Pulse Resp BP Pulse Ox O2 Del Method 08/10/23 15:34 97.7 F 91 H 20 124/75 92 Nasal Cannula 08/10/23 13:46 92 08/10/23 12:27 97.7 F 92 H 18 125/76 93 Nasal Cannula 08/10/23 08:48 96 H 08/10/23 08:15 98.4 F 90 18 118/84 94 Nasal Cannula 08/10/23 07:49 Nasal Cannula O2 Flow Rate 08/10/23 15:34 4 08/10/23 13:46 08/10/23 12:27 4 08/10/23 08:48 08/10/23 08:15 4 08/10/23 07:49 4 Diagnostic Findings gy/Adv: No Known Allergies Close Hepatobiliary Scan Nuclear Medicine (Signed) Javad Lerner - 08/10/23 Pelvis X-Ray (Signed) Boogie Burden - 08/08/23 Chest X-Ray (Signed) Boogie Burden - 08/08/[address] (Signed) Boogie Burden - 08/08/[address] (Signed) Boogie Burden - 08/08/[address] (Signed) Boogie Burden - 08/08/23 Abdomen/Pelvis CT (Signed) Boogie Burden - 08/08/23 Vascular Duplex Study Rpt [facility] Provider [facility] Provider - 01/25/23 Abdomen/Pelvis CT (Signed) Jt Pace - 01/14/23 Chest X-Ray (Signed) Jt Pace - 01/14/23 Lumbar Spine X-Ray (Signed) Bill Keith - 04/07/21 Lumbar Spine X-Ray (Signed) Bill Keith - 04/02/21 Hand X-Ray (Signed) Boogie Burden - 12/20/[address] (Signed) Boogie Burden - 12/20/20 Chest X-Ray (Signed) Boogie Burden - 12/20/20 Venous Doppler Study (Signed) Dioni Berrios - 08/07/20 Chest X-Ray (Signed) Santi Carl - 09/06/19 [place], [place] [phone] CT Scan Report Patient: DEJON KENNEDY Admit Date: 08/08/23 MR#: [id number] Address1: [address] [place] [address] Acct ID:[id number] Address2: Date: 1935 [facility] Zip: [place] [address] Age: 87 Location: ED Sex: M Room/Bed: Att Phy: Diagnosis: FALL, NO VISIBLE INJURIES, UNKNWN DOWNTIME Allie Phy: Rich Warren MD Service Date: 08/08/23 Fam Phy: Interpreting Phy: Boogie BurdenAdmit Phy: Ordering Phy: Janis Rizvi DO cc: ~ CHEST CT WITH CONTRAST; CT ABDOMEN AND PELVIS WITH IV CONTRAST ONLY HISTORY: Acute chest and abdominal trauma status post fall trauma TECHNIQUE: Multiaxial CT images of the chest, abdomen and pelvis were performed following the IV administration of 93 cc of Optiray. A dose lowering technique was utilized adhering to the principles of ALARA. COMPARISON: CT abdomen and pelvis 01/14/2023 FINDINGS: CT CHEST: No large thyroid nodule or lymphadenopathy. Moderate cardiomegaly without pericardial effusion. Extensive coronary artery calcifications. Atherosclerosis of the thoracic aorta without aneurysm or dissection. Unremarkable pulmonary artery. There is no pneumothorax, pleural effusion or pulmonary edema. Mild mucous plugging with bronchial wall thickening suggestive of bronchitis or reactive airway disease. Mild subsegmental bibasilar prominent opacities suggestive of atelectasis. There are no suspicious pulmonary nodules or masses identified. Unremarkable soft tissues. Degenerative changes of the shoulders and spine. No acute fracture identified. CT ABDOMEN/PELVIS: No free air. Unremarkable spleen, mildly atrophic pancreas and adrenal glands. Cholelithiasis with equivocal choledocholithiasis, image 164 series 11. No significant biliary ductal dilation. Cortical thinning of the kidneys with a few bilateral renal cysts. Tamez catheter noted within a decompressed urinary bladder. Chronic 5 mm calculus in the distal left ureter just proximal to the ureterovesicular junction. Heterogeneous appearance of the enlarged prostate. Atherosclerosis of the aorta. No lymphadenopathy. Small hiatal hernia. No bowel obstruction or bowel wall thickening. Colonic diverticulosis. Unremarkable soft tissues. No acute fracture. 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 Unchanged subcentimeter metallic density focus noted posterior to the right mid sacrum on image 303. IMPRESSION: 1. No acute posttraumatic intrathoracic, intra-abdominal or intrapelvic abnormality. 2. No acute fracture identified. 3. Cholelithiasis with probable choledocholithiasis. No biliary ductal dilation. Correlate with serum bilirubin. 4. Unchanged positioning of the 5 mm calculus within the distal left ureter without obstructive uropathy. 5. Additional findings as above. ACT 112: Negative or not required by law. Electronically signed by: Boogie Burden M.D. 08/08/2023 6:34 PM Dictated: 08/08/231823 Transcribed: 08/08/231823 [place], [place] [phone] Nuclear Medicine Report Patient: DEJON KENNEDY Admit Date: 08/08/23 MR#: [id number] Address[address]: [address] Acct ID:[id number] Address2: Date: 1935 [facility] [place] [facility] [place] [address] Age: 87 Location: 2E Sex: M Room/Bed: Formerly Named [facility] Att Phy: Israel Da Silva MD Diagnosis: FALL, DEHYDRATION Allie Phy: Rich Warren MD Service Date: 08/10/23 Fam Phy: Interpreting Phy: Javad Lerner MDAdmit Phy: Razia Bartlett D.O. Ordering Phy: Israel Da Silva MD cc: ~ NM hepatobiliary CLINICAL HISTORY: elevated bilirubin, cholelithiasis TECHNIQUE: Following the intravenous injection of 5.5 mCi of Tc-99m labeled Technetium 99m mebrofenin, multiple images of the upper abdomen were obtained in the anterior projection with uptake measurements of the gallbladder obtained. Comparison: Comparison is made to CT abdomen pelvis 07/31/2023 FINDINGS: Sequential images demonstrate normal uptake in the liver, common bile duct, and small bowel. No uptake was seen in the gallbladder including following administration of morphine. IMPRESSION: No uptake was seen in the gallbladder, findings are compatible with acute cholecystitis. Reference: Normal gallbladder ejection fraction is greater than 33%. ACT 112: Negative or not required by law. Electronically signed by: Javad Lerner M.D. 08/10/2023 1:10 PM Dictated: 08/10/23 1305 Transcribed: 08/10/23 1305 PG Care Time/CCT Total # of Minutes Spent Total Time Spent with Patient: Total time spent is greater than 50% in coordination of care (as documented) at patient's floor/unit and/or counseling patient: Coding Level of Care Code 16312 INT INP/OBS CARE MIN Diagnoses Choledocholithiasis with acute cholecystitis K80.42
[2023-08-11] MEDS ORDERED: Nursing to Pharmacy Communication SCH ×3 (00:30→19:30)
[2023-08-11] MEDS: PIPERACILLIN/TAZOBACTAM 4.5 GM in DEXTROSE 5% MINI-B 100 ML IV SCH ×3 (03:03→22:59)
[2023-08-11] MEDS: D5W AND 1/4NSS 1,000 ML IV SCH ×2 (03:20→12:05)
[2023-08-11] MEDS: INSULIN ASPART PER UNIT CHARGE SC SCH ×4 (06:13→21:10)
[2023-08-11 06:19] LABS: Basophils # (auto) 0.05 K/uL (0.00-0.20); Basophils % (auto) 0.6 %; Eosinophils # (auto) 0.44 K/uL (0.00-0.50); Eosinophils % (auto) 5.3 %; Hematocrit (blood only) 44.4 % (42.0-52.0); Hemoglobin 14.2 g/dl (14.0-18.0); Immature Granulocytes # (auto) 0.08 K/uL (0.01-0.20); Lymphocytes # (auto) 1.56 K/uL (1.20-3.40); Lymphocytes % (auto) 18.9 %; Mean Corpuscular Hemoglobin 29.1 pg (25.0-34.0); Mean Platelet Volume 12.1 fL (9.4-12.4); Monocytes # (auto) 0.75 K/uL (0.11-0.59); Monocytes % (auto) 9.1 %; Neutrophils # (auto) 5.36 K/uL (1.40-6.50); Neutrophils % (auto) 65.1 %; Platelet Count 162 K/uL (130-400); RDW Coefficient of Variation 15.3 % (11.5-14.5); RDW Standard Deviation 50.8 fL (36.4-46.3); Red Blood Count 4.88 M/uL (4.70-6.10); White Blood Count 8.24 K/ul (4.8-10.8)
[2023-08-11 06:46] LABS: Albumin Globulin Ratio 1.1 (0.9-2); Albumin Level 2.9 gm/dl (3.4-5.0); BUN Creatinine Ratio 39.7 (10-20); Bilirubin,Total 2.3 mg/dl (0.2-1.0); Calcium 8.3 mg/dl (8.6-10.3); Creatinine Clr Calc Pharmacy 42.4 ml/min; Est GFR (African American) 58.2 ml/min; Est GFR (Non-African American) 50.2 ml/min; Globulin 2.6 gm/dl (2.5-4.0); Potassium 3.7 mmol/L (3.5-5.1); Total Protein 5.5 gm/dl (6.0-8.3)
--- NOTE | 2023-08-11 06:51 | Anesthesiology Consultation ---
Date of Service August 11, 2023 Assessment & Plan (1) Encounter for pre-operative examination: Chart Review Chart Review: Acceptable Risk for Surgery and Patient NOT seen in Pre Admission Testing Consults Requested none History Surgery Operation Date: 08/11/23 10:30 Proposed Procedures p Endoscopic Ultrasonography Upper - Mika Wilburn DO s Laparoscopic Cholecystectomy - Skip Beltrán DO Height/Weight Height: 5 ft 8 in Weight: 86 kg Allergies Allergy/AdvReac Type Severity Reaction Status Date / Time No Known Allergies Allergy Unknown Verified 08/08/23 17:09 Medications Home Medications Medication Instructions Recorded Confirmed Last Taken ibuprofen 200 mg tablet (Advil) 200 mg PO Q6H PRN Pain 09/06/19 08/08/23 09/05/19 400 mg aspirin 81 mg tablet,delayed 81 mg PO DAILY 12/20/20 08/08/23 01/14/23 release atorvastatin 40 mg tablet 40 mg PO HS #90 tabs 08/01/22 08/08/23 01/13/23 indapamide 1.25 mg tablet 1.25 mg PO QAM #90 tabs 08/01/22 08/08/23 01/14/23 metformin 1,000 mg tablet 1,000 mg PO BID #180 tabs 08/01/22 08/08/23 01/14/23 tamsulosin 0.4 mg capsule (Flomax) 0.4 mg PO DAILY #90 caps 08/01/22 08/08/23 Unknown glipizide 5 mg tablet, extended 5 mg PO DAILY #90 tabs 02/13/23 08/08/23 Unknown release 24 hr cholecalciferol (vitamin D3) 1,250 50,000 unit PO .ONCE WEEKLY #12 04/03/23 08/08/23 Unknown mcg (50,000 unit) capsule caps empagliflozin 25 mg tablet 25 mg PO DAILY #90 tabs 04/03/23 08/08/23 Unknown (Jardiance) semaglutide 3 mg tablet (Rybelsus) 3 mg PO DAILY 30 days #30 tabs 05/22/23 08/08/23 Unknown semaglutide 7 mg tablet (Rybelsus) 7 mg PO DAILY #30 tabs 05/22/23 08/08/23 Unknown enalapril maleate 10 mg tablet 10 mg PO BID #180 tabs 05/30/23 08/08/23 Unknown Active Medications Generic Name Dose Route Start Last Admin Trade Name Mao PRN Reason Stop Dose Admin Acetaminophen 650 mg 08/08/23 22:08 08/09/23 19:10 Acetaminophen 325 Mg Tab PO 09/07/23 22:07 650 mg Q4H PRN Administration pain/fever Aspirin 81 mg 08/09/23 09:00 08/10/23 08:34 Aspirin 81 Mg Ectab PO 09/08/23 08:59 81 mg DAILY JENNIFER Administration Heparin Sodium (Porcine) 5,000 units 08/08/23 22:08 08/10/23 21:05 Heparin Sod 5,000 Unit/0.5 Ml Vial SQ 09/07/23 22:07 5,000 units Q12 JENNIFER Administration Piperacillin Sod/Tazobactam 100 mls @ 25 mls/hr 08/09/23 04:00 08/11/23 03:03 Sod 4.5 gm/ Dextrose IV 08/19/23 03:59 25 mls/hr Q8H JENNIFER Administration Protocol Dextrose/Sodium Chloride 1,000 mls @ 80 mls/hr 08/10/23 10:15 08/11/23 03:20 D5w And 1/4nss IV 09/09/23 10:14 80 mls/hr .[id number] JENNIFER Administration Insulin Aspart 0 units 08/11/23 06:00 08/11/23 06:13 Insulin Aspart Per Unit Charge SC 09/10/23 05:59 1 units Q6 JENNIFER Administration Insulin Glargine 15 units 08/09/23 09:00 08/10/23 21:04 Lantus Per Unit Charge SQ 09/08/23 08:59 15 units BID JENNIFER Administration Tamsulosin HCl 0.4 mg 08/09/23 07:30 08/10/23 07:44 Tamsulosin Hcl 0.4 Mg Cap PO 09/08/23 07:29 0.4 mg DAILY@0730 JENNIFER Administration Past Medical History Medical History Cholelithiasis History of acute cholangitis SNHL (sensorineural hearing loss) Hypercholesterolemia Hypertension Diabetes Hemorrhoids Past Family History Family History Mother Diabetes Father Heart disease Denies family history of Ovarian cancer Prostate cancer Myocardial infarction Breast cancer Colorectal cancer Past Surgical History Surgical History Hx of cholecystectomy Hx of transurethral resection of prostate History of arthroplasty of knee Hx of hernia repair Hx of appendectomy Social History Smoking Status: Unknown if ever smoked Hx Alcohol Use: No Hx Substance Use: No Physical Exam Vital Signs Last Vital Signs Temp 97.5 F L 08/10/23 23:53 Pulse 69 08/11/23 03:21 Resp 20 08/11/23 03:21 BP 145/88 H 08/11/23 03:21 Pulse Ox 94 08/11/23 03:21 O2 Del Method Nasal Cannula 08/11/23 03:21 O2 Flow Rate 4 08/11/23 03:21 Testing Laboratory Results 08/11/23 05:45 08/11/23 05:45 PT 12.0 Seconds (9.0-12.0) 08/08/23 16:20 INR 1.1 (0.9-1.1) 08/08/23 16:20 Urine Color Dark Yellow 08/08/23 16:40 Urine Appearance Clear (Clear) 08/08/23 16:40 Urine pH 5.5 (4.5-7.5) 08/08/23 16:40 Ur Specific [place] 1.029 (1.000-1.030) 08/08/23 16:40 Urine Protein 2+ (Negative) H 08/08/23 16:40 Urine Glucose (UA) 3+ (Negative) H 08/08/23 16:40 Urine Ketones Trace (Negative) H 08/08/23 16:40 Urine Nitrite Negative (Negative) 08/08/23 16:40 Ur Leukocyte Esterase Negative (Negative) 08/08/23 16:40 Urine WBC (Auto) 1-5 /hpf (0-5) 08/08/23 16:40 Urine RBC (Auto) 5-10 /hpf (0-4) H 08/08/23 16:40 U Hyaline Cast (Auto) 5-10 /lpf (0-5) H 08/08/23 16:40 U Epithel Cells (Auto) 5-10 /lpf (0-5) H 08/08/23 16:40 Urine Bacteria (Auto) Negative (Negative) 08/08/23 16:40 08/08/23 16:40 Aerobic Blood Culture - Preliminary Blood No growth in Aerobic bottle after 48 hours. Anaerobic Blood Culture - Preliminary No growth in Anaerobic bottle after 48 hours. 08/08/23 16:40 Aerobic Blood Culture - Preliminary Blood No growth in Aerobic bottle after 48 hours. Anaerobic Blood Culture - Preliminary No growth in Anaerobic bottle after 48 hours. 08/11/23 08/11/23 08/10/23 06:06 00:16 20:45 POC Glucose 160 H 161 H 202 H Electrocardiogram Date: 08/08/23 Findings: + RBBB Echocardiogram Date: 08/09/23 EF: 60-65 LV Function: normal Other Findings: + LVH (moderate )
[2023-08-11] MEDS: TAMSULOSIN HCL 0.4 MG CAP PO SCH (07:24)
[2023-08-11] MEDS: ASPIRIN 81 MG ECTAB PO SCH (07:24)
[2023-08-11] MEDS: HEPARIN SOD 5,000 UNIT/0.5 ML VIAL SQ SCH ×2 (09:56→21:52)
[2023-08-11] MEDS: LANTUS PER UNIT CHARGE SQ SCH ×2 (09:56→21:51)
--- NOTE | 2023-08-11 11:29 | Gastroenterology Progress Note ---
<Statement entered by Mika Wilburn, DO - 08/11/23 14:51> I saw and evaluated the patient. He had presented with signs and symptoms related to choledocholithiasis, ERCP has been requested for biliary decompression. I discussed the risks and benefits of the procedure with the patient and his daughters, these risks include bleeding infection perforation pain failed biliary cannulation and need for follow-up studies. The patient is at higher than average risk of perioperative complications given his significant comorbid medical problems. Date of Service August 11, 2023 Assessment & Plan (1) Choledocholithiasis with acute cholecystitis: Plan Appreciate primary hospitalists management of IV fluids, NPO, antibiotics. ERCP was described in detail using drawing, to pt and family at bedside including risks of bleeding, perforation, pancreatitis. Pt/family would like to go forward with the procedure and w a cholecystectomy. ERCP today by Dr. Wilburn. Plan is for cholecystectomy to follow. Further recommendations to follow ERCP. Admission and Anticipated Discharge Date Admission Date: August 08, 2023 Supervising Physician Co-Signing Physician Notes Saw and evaluated the patient, we are planning to do ERCP today for biliary decompression given the imaging shows evidence of choledocholithiasis. I discussed the risks of the procedure with the patient and his family to include bleeding infection perforation pain need for follow-up studies. We have also discussed the increased risk of perioperative complications given his comorbid medical problems. Subjective 87, male, admitted after found down in his home. Rhabdo w el troponins, CK improving. Elevated LFTs, leukocytosis and CT w choledocholithiasis consistent w cholangitis. Stable, no fever, white count normalized on Zosyn. LFTs improved: T Bili 6.2- >2.3, AST 53->26, ALT 42->26, Alk Phos 82->57. No N/V or c/o abdominal pain. Review of Systems Review of Systems: ROS: Gen: + weakness (improving), no fevers or weight loss Eyes: No eye redness, or pain, no recent vision changes Resp: No SOB, no cough Cardio: No palpitations/irregular beats, no chest pain GI: As per HPI, otherwise (-) : Denies pain on urination Skin: + jaundice improved. No itching or new rashes Physical Exam Physical Exam: Constitutional: well developed, we ll nourished and a verage body habitu s; no acute distre ss Eyes: PERRL, conjunctiva e normal, anicteri c sclerae ENMT: external ear and n ose normal, oropha rynx normal Neck: trachea midline, n o thyromegaly Respiratory: normal respiratory effort, lungs celestino ar to auscultation Cardiovascular: RRR, no murmur, no edema Gastrointestinal ( Abdomen): normal bowel sound s, soft, nontender , no hepatosplenom egaly Skin: no rashes, warm an d dry Neurologic: PERRL, EOMI, accom modation nl, no fa ce palsy, no dysar thria Psychiatric: A+Ox3, euthymic af fect Lymphatic: no cervical or axi llary lymphadenopa thy Results & Data Vital Signs (Past 12 Hours) Vital Signs Temp Pulse Pulse Resp BP Pulse Ox O2 Del Method 08/11/23 09:49 Nasal Cannula 08/11/23 07:42 36.4 C L 67 19 140/73 93 Nasal Cannula 08/11/23 07:27 68 08/11/23 03:21 69 20 145/88 H 94 Nasal Cannula 08/11/23 00:57 71 08/10/23 23:53 36.4 C L 75 20 153/83 H 95 Nasal Cannula O2 Flow Rate 08/11/23 09:49 4 08/11/23 07:42 2 08/11/23 07:27 08/11/23 03:21 4 08/11/23 00:57 08/10/23 23:53 4 Laboratory Results WBC 8.24, Hb 14.2, Hct 44, Plts 162,Na 146, K 3.7, Cl 114, CO2 30, BUN 50, Cr 1.26, glucose 166. Diagnostic Findings CTAP w IV 08/08/23: 1. No acute posttraumatic intrathoracic, intra-abdominal or intrapelvic abnormality. 2. No acute fracture identified. 3. Cholelithiasis with probable choledocholithiasis. No biliary ductal dilation. Correlate with serum bilirubin. 4. Unchanged positioning of the 5 mm calculus within the distal left ureter without obstructive uropathy. 5. Additional findings as above.
--- NOTE | 2023-08-11 11:56 | History & Physical Bridge Note ---
Date of Service August 11, 2023 History & Physical Bridge Note I have examined the patient, reviewed the History & Physical and in the interval since the performance of the History & Physical I have noted the following changes of clinical significance: no changes noted
[2023-08-11] MEDS ORDERED: INDOMETHACIN 50 MG SUPP PR ONE (14:17)
[2023-08-11] MEDS ORDERED: ePHEDrine sulfate 50 MG/ML AMP IV PRN (14:26)
[2023-08-11] MEDS ORDERED: ATROPINE SULFATE 0.1 MG/ML 10ML SYR IV PRN (14:26)
[2023-08-11] MEDS ORDERED: fentaNYL citrate PF 100 MCG/2 ML VIAL IV PRN (14:26)
[2023-08-11] MEDS ORDERED: ONDANSETRON INJ 2 MG/ML 2 ML VIAL IV PRN (14:26)
[2023-08-11] MEDS ORDERED: BUPIVACAINE/EPINEPHRINE 0.5% MPF 1:200,000 30 ML VIAL ONE (14:35)
[2023-08-11] MEDS ORDERED: LACTATED RINGER'S 1,000 ML IV SCH (14:45)
[2023-08-11] MEDS ORDERED: fentaNYL citrate PF 100 MCG/2 ML VIAL ONE ×2 (15:05→17:06)
[2023-08-11] MEDS ORDERED: PROPOFOL IV EMULSION 10 MG/ML 20 ML VIAL IV ONE (15:05)
[2023-08-11] MEDS ORDERED: ROCURONIUM BROMIDE 10 MG/ML 5 ML VIAL IV ONE ×2 (15:09→17:02)
[2023-08-11] MEDS ORDERED: LIDOCAINE 2% 2 ML VIAL/AMP(20MG/ML) INFIL ONE (15:09)
[2023-08-11] MEDS ORDERED: ONDANSETRON INJ 2 MG/ML 2 ML VIAL ONE (15:09)
[2023-08-11] MEDS ORDERED: PHENYLEPHRINE 100MCG/ML 10ML SYR IV ONE (15:47)
--- NOTE | 2023-08-11 16:03 | Hospitalist Progress Note ---
Date of Service August 11, 2023 Assessment & Plan (1) DINORAH (acute kidney injury): Plan: From volume depletion. Serum osmolality 356. Continue IV fluids. Monitor intake and output. Serial labs . Improving (2) Hyperbilirubinemia: Plan: Known cholelithiasis and choledocholithiasis. HIDA scan consistent with acute cholecystitis. . General surgery and gastroenterology consultations appreciated. He will undergo ERCP today, August 12, followed by cholecystectomy. Continue intravenous Zosyn, day 4. (3) Cholelithiasis: Plan: With acute cholecystitis. Suspected choledocholithiasis. HIDA scan is consistent with acute cholecystitis. General surgery and gastroenterology consultations appreciated. He will undergo ERCP procedure today, August 11, followed by cholecystectomy. (4) Rhabdomyolysis: Plan: Mild to moderate elevation of creatinine kinase on admission. Now improving. Continue IV fluids. Serial labs . Statin therapy is on hold (5) Diabetes mellitus type II, uncontrolled: Plan: ADA diet. Oral medications are on hold. Basal insulin coverage and sliding scale coverage for now. (6) Hypertension: Plan: Indapamide and enalapril are on hold due to volume depletion and acute kidney injury. (7) Hypercholesterolemia: Plan: Statin therapy is on hold due to abnormal liver tests and elevated CK. Plan To be determined Admission and Anticipated Discharge Date Admission Date: August 08, 2023 Subjective Alert and oriented. No distress. Daughter is at the bedside. ERCP is pending today to be followed by laparoscopic cholecystectomy. Creatinine has improved to 1.2. Total bilirubin improved to 2.3. Sodium improved to 146. CK improved to 316. He remains on intravenous Zosyn, day 4. Review of Systems 2 Review of Systems: Constitutional-no fever or chills ENT-no blurred vision, no double vision, no epistaxis Respiratory-occasional cough. No phlegm. No hemoptysis. No pleuritic pain. No wheezing Cardiac-no palpitations, no chest pain, no syncope GI-poor appetite. Denies nausea, vomiting, diarrhea, melena, hematochezia -no urinary retention, no urinary incontinence, no dysuria, no hematuria Musculoskeletal-no joint pain, no muscle tenderness Skin-no bruising, no rashes, no pruritus. Neuro-generalized weakness. Psych-no depression, no anxiety Physical Exam 2 Physical Exam: General-alert and oriented x3, no fevers, no chills. Appears weak HEENT-head atraumatic and normocephalic, pupils equal and reactive to light, extraocular muscles intact. No scleral icterus Neck-no lymphadenopathy or thyromegaly, trachea midline Chest-diminished breath sounds bilaterally. No rhonchi. No wheezing Cardiac-regular rate and rhythm, normal S1 and S2 Abdomen-normal bowel sounds, no hepatosplenomegaly. Mildly tender to deep palpation in the right upper quadrant Extremities-no cyanosis, clubbing, or edema Neuro-cranial nerves II through XII intact, motor and sensory function within normal limits, strength symmetrical with generalized weakness, no focal deficits Psych-flat affect Results & Data Results & Data Vital Signs (Past 12 Hours) Vital Signs Temp Pulse Pulse Resp BP Pulse Ox O2 Del Method 08/11/23 14:14 36.7 C 69 20 116/70 96 Nasal Cannula 08/11/23 11:31 36.4 C L 65 19 124/64 98 Nasal Cannula 08/11/23 09:49 Nasal Cannula 08/11/23 07:42 36.4 C L 67 19 140/73 93 Nasal Cannula 08/11/23 07:27 68 O2 Flow Rate 08/11/23 14:14 3 08/11/23 11:31 4 08/11/23 09:49 4 08/11/23 07:42 2 08/11/23 07:27 Laboratory Results 08/11/23 05:45 08/11/23 05:45 PG Care Time/CCT Total # of Minutes Spent Total Time Spent with Patient: Total time spent is greater than 50% in coordination of care (as documented) at patient's floor/unit and/or counseling patient: Coding Level of Care Code 78751 SUB INP/OBS CARE 3/50MIN Diagnoses DINORAH (acute kidney injury) N17.9 Hyperbilirubinemia E80.6 Cholelithiasis K80.20 Rhabdomyolysis M62.82 Diabetes mellitus type II, uncontrolled E11.65 Hypertension I10 Hypercholesterolemia E78.00
--- NOTE | 2023-08-11 16:09 | GI REPORT ---
Patient Name: Koffi Walker Procedure Date: 08/11/2023 3:04 PM Date of : 1935 Admit Type: Inpatient Age: 87 Gender: Male Attending MD: Mika Wilburn DO, Procedure: ERCP Providers: Mika Wilburn DO Referring MD: Israel Crow Indications: Abdominal pain of suspected biliary origin, Bile duct stone on Computed Tomogram Scan, Elevated liver enzymes Medicines: General Anesthesia Complications: No immediate complications. Estimated blood loss: Minimal. Estimated Blood Loss: Estimated blood loss was minimal. Procedure: Pre-Anesthesia Assessment: - Prior to the procedure, a History and Physical was performed, and patient medications, allergies and sensitivities were reviewed. The patient's tolerance of previous anesthesia was reviewed. - The risks and benefits of the procedure and the sedation options and risks were discussed with the patient. All questions were answered and informed consent was obtained. - Patient identification and proposed procedure were verified prior to the procedure by the physician, the nurse and the shrimper. The procedure was verified in the procedure room. - Pre-procedure physical examination revealed no contraindications to sedation. - ASA Grade Assessment: III - A patient with severe systemic disease. - After reviewing the risks and benefits, the patient was deemed in satisfactory condition to undergo the procedure. - The anesthesia plan was to use general anesthesia. - Immediately prior to administration of medications, the patient was re-assessed for adequacy to receive sedatives. - The heart rate, respiratory rate, oxygen saturations, blood pressure, adequacy of pulmonary ventilation, and response to care were monitored throughout the procedure. - The physical status of the patient was re-assessed after the procedure. After obtaining informed consent, the scope was passed under direct vision. Throughout the procedure, the patient's blood pressure, pulse, and oxygen saturations were monitored continuously.The ERCP was accomplished without difficulty. The patient tolerated the procedure well. The Duodenoscope was introduced through the mouth, and advanced to the duodenum and used to inject contrast into the bile duct. Findings: The process manufacturing engineer film was normal. The esophagus was successfully intubated under direct vision. Examination of the pharynx, larynx and associated structures was normal. The upper GI tract was traversed under direct vision without detailed examination. Diffuse moderate inflammation characterized by adherent blood, congestion (edema), erythema and granularity was found in the entire examined stomach. One non-obstructing non-bleeding cratered duodenal ulcer with pigmented material was found in the duodenal bulb. The lesion was 10 mm in largest dimension. The major papilla was located partially within a diverticulum. The major papilla was congested. The bile duct was deeply cannulated with the short-nosed traction sphincterotome and Angled 0.035 in Acrobat 2 guidewire. Contrast was injected. I personally interpreted the bile duct images. Contrast extended to the hepatic ducts. The lower third of the main bile duct and middle third of the main bile duct contained filling defect(s) thought to be a stone and sludge. The lower third of the main bile duct contained a single mild stenosis 10 mm in length. A low cystic duct takeoff was also noted. A biliary sphincterotomy was made with a monofilament Fusion OMNI sphincterotome using ERBE electrocautery. There was no post-sphincterotomy bleeding. Unfortunately needed 0.035 inch guidewire could not be passed into the upper biliary tree therefore it was exchanged by using an Olympus [place] Cut and 0.025 in angled visiglide guidewir which allowed passage of the wire into the upper biliary tree. To discover objects, the biliary tree was swept with a 12 mm balloon starting at the bifurcation. A large amount of thick green sludge was swept from the duct. Many green and black pigmented stones were removed. Due to the intraductal stricture, one 10 Fr by 6 cm covered metal stent was placed 6 cm into the common bile duct for stricture remodeling (Gladstone Viabil). Bile flowed through the stent. The stent was in good position. The endoscope was withdrawn from the patient. Impression: - Gastritis. - Non-obstructing non-bleeding duodenal ulcer with pigmented material. - The major papilla was located partially within a diverticulum. - The major papilla appeared congested. 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 - Choledocholithiasis was found. Complete removal was accomplished by biliary sphincterotomy and balloon extraction. - One covered metal stent (Gladstone Viabil) was placed into the common bile duct. Recommendation: - Avoid aspirin and nonsteroidal anti-inflammatory medicines for 1 week. - Use broad spectrum antibiotics for 10 days. - Repeat ERCP in 6 weeks to remove stent. - cholecystectomy as planned by General Surgery. Mika Wilburn D.O. Mkia Wilburn, 08/11/2023 4:09:06 PM This report has been signed electronically. Note Initiated On: 08/11/2023 3:04 PM Number of Addenda: 0 I attest to the content of the Intraoperative Record and orders documented therein, exceptions below {[id number]}
--- NOTE | 2023-08-11 16:09 | Post Operative Brief Note ---
Immediate Post Op Note v1 Date of Surgery August 11, 2023 Pre & Post Diagnosis Operation Date: 08/11/23 10:30 Pre-Op Diagnosis: Choledocholithiasis, acute cholecystitis I identified the patient and participated in the time-out.: Yes Procedure Operation Date: 08/11/23 10:30 Actual Procedures p Endoscopic Retrograde Cholangiopancreatogram(Not Applicable) - Mika Wilburn DO Surgeon Mika Wilburn, DO Mucking Machine Operator none Estimated Blood Loss 0 Findings Consistent with Post-Op Diagnosis
--- NOTE | 2023-08-11 16:11 | Communication Note ---
Date of Service: August 11, 2023 The patient underwent ERCP this afternoon for treatment of suspected choledocholithiasis. He was found to have a large amount of sludge and stone material within the common bile duct in addition to a distal common bile duct stricture. This was treated with biliary sphincterotomy, gallstone extraction and placement of a covered metal stent for stricture remodeling purposes. The patient is to have a cholecystectomy performed during the same procedure today. Please note the patient was found to have a deep ulcer in the duodenal bulb in addition to diffuse gastritis. Recommendations Antibiotic coverage for 10 to 14 days Avoid NSAIDs for 1 week of possible Avoid anticoagulation for 72 hours if possible May have a clear liquid diet from a GI perspective Protonix 40 mg daily for treatment of the duodenal ulcer and gastritis Upper endoscopy and repeat ERCP in 6 to 8 weeks for biliary stent removal
--- NOTE | 2023-08-11 16:59 | Fluoroscopy Report ---
[place] ERCP biliary ductal CLINICAL HISTORY: ERCP IN ORfollow-up study in a patient with right upper quadrant abdominal pain COMPARISON STUDY: CT 08/08/2023 FLUOROSCOPY TIME: 133.1 seconds FLUOROSCOPY IMAGES: 11 EXPOSURE DOSE: 40.53 mGy FINDINGS: Endoscope within the duodenum. Retrograde cannulation of the common bile duct with balloon sweep and subsequent stent placement. The common bile duct appears mildly dilated. IMPRESSION: Fluoroscopic assistance as above. ACT 112: Negative or not required by law. Electronically signed by: Boogie Burden M.D. 08/11/2023 4:58 PM
[2023-08-11] MEDS ORDERED: SUGAMMADEX SODIUM 200 MG/2 ML VIAL IV ONE (17:12)
--- NOTE | 2023-08-11 17:25 | Operative Report ---
PG Post Operative Report Pre & Post Diagnosis Operation Date: 08/11/23 10:30 Pre-Op Diagnosis: Choledocholithiasis, acute cholecystitis Post-Op Diagnosis: Choledocholithiasis, acute cholecystitis I identified the patient and participated in the time-out.: Yes Procedure Operation Date: 08/11/23 10:30 Actual Procedures p Endoscopic Retrograde Cholangiopancreatogram(Not Applicable) - Mika Wilburn DO s Laparoscopic Cholecystectomy(Not Applicable) - Skip Beltrán DO Surgeon Skip Beltrán, Probation Supervisor none Estimated Blood Loss 50 Findings Consistent with Post-Op Diagnosis Specimens gallbladder Description of Procedure After informed consent was obtained the patient was taken to the operating room and placed in the supine position. After successful intubation the abdomen was sterilely prepped and draped in usual fashion. A periumbilical incision was made with an 11 blade scalpel and carried down through the soft tissue using electrocautery. The anterior rectus fascia was opened using electrocautery and 2 #0 Vicryl stay sutures were placed. The peritoneum was elevated with hemostats and incised under direct vision using Metzenbaum scissors. A finger sweep was performed and a 12 mm Davalos trocar was placed. The abdomen was insufflated to 18 mmHg. The laparoscope was inserted and the abdomen was ex amined in 360. The gallbladder was acutely clean, otherwise no gross abnormalities were identified. A subxiphoid 5 mm port which would later be replaced with a 12 mm port and 2 right upper quadrant 5 mm ports were placed under direct vision. Eventually I would also place a 5th port in the left upper quadrant. The patient was placed in a reverse Trendelenburg position and slightly airplaned to the left. The gallbladder was grasped and elevated superiorly and laterally. A [place] dissector was used to take down adhesions around the neck of the gallbladder. It was very contracted and inflamed. I therefore placed and additional LUQ port and used a liver retractor to hold down on the stomach. The cystic duct was identified and skeletonized. It was too inflamed to use a simple clip chief radiologic technologist. I therefore placed a subxiphoid 12 mm port and used a DAISY brown cartridge 45 mm stapler to transect the cystic duct. In similar fashion the cystic artery was identified and skeletonized clipped and divided. The gallbladder was removed from the gallbladder fossa with electrocautery. It was placed into an Endo Catch bag. Thorough irrigation was performed. At the end of the procedure there was adequate hemostasis and no evidence of any bile leaks. A final look around the abdomen showed no other abnormalities. The gallbladder and trochars were all removed and the abdomen was desufflated. The fascia of the camera port was closed using 0 Vicryl in a [id number] fashion. All the wounds were irrigated and closed using 4-0 Monocryl. Marcaine was injected around them for postoperative analgesia and skin glue used as a dressing. The patient was awaken extubated and transferred to recovery in stable condition. My LEAD ATG DEVELOPER family services assistant was present throughout the entire case... helped with prepping the patient. With exposure for trocar placement, as well as retracted the gallbladder throughout the case and also assisted with wound closure and dressing placement. I attest to the content of the Intraoperative Record and any orders documented therein. Any exceptions are noted below.
--- NOTE | 2023-08-11 18:10 | Anesthesiology Progress Note ---
Date of Service August 11, 2023 Anesthesia Post Procedure Vital Signs Vital Signs: Temp Pulse Pulse Resp BP Pulse Ox O2 Del Method 08/11/23 14:14 36.7 C 69 20 116/70 96 Nasal Cannula 08/11/23 11:31 36.4 C L 65 19 124/64 98 Nasal Cannula 08/11/23 09:49 Nasal Cannula 08/11/23 07:42 36.4 C L 67 19 140/73 93 Nasal Cannula 08/11/23 07:27 68 08/11/23 03:21 69 20 145/88 H 94 Nasal Cannula 08/11/23 00:57 71 08/10/23 23:53 36.4 C L 75 20 153/83 H 95 Nasal Cannula 08/10/23 20:15 Nasal Cannula 08/10/23 20:05 36.4 C L 79 18 143/85 H 94 Room Air O2 Flow Rate 08/11/23 14:14 3 08/11/23 11:31 4 08/11/23 09:49 4 08/11/23 07:42 2 08/11/23 07:27 08/11/23 03:21 4 08/11/23 00:57 08/10/23 23:53 4 08/10/23 20:15 4 08/10/23 20:05 Transfer of Care Handoff Completed per policy Notes Mental Status: alert / awake / arousable Patient Amnestic to Procedure: Yes Nausea / Vomiting: adequately controlled Pain: adequately controlled Airway Patency, RR, SpO2: stable & adequate BP & HR: stable & adequate Hydration State: stable & adequate Anesthetic Complications: no major complications apparent
[2023-08-11] MEDS ORDERED: MoRPHine SULFATE 2 MG/ML CARP IV PRN (18:31)
[2023-08-12] MEDS: D5W AND 1/4NSS 1,000 ML IV SCH (00:05)
[2023-08-12] MEDS: PIPERACILLIN/TAZOBACTAM 4.5 GM in DEXTROSE 5% MINI-B 100 ML IV SCH ×3 (03:34→20:25)
[2023-08-12 07:07] LABS: Basophils # (auto) 0.03 K/uL (0.00-0.20); Basophils % (auto) 0.3 %; Eosinophils # (auto) 0.27 K/uL (0.00-0.50); Hematocrit (blood only) 44.3 % (42.0-52.0); Hemoglobin 13.9 g/dl (14.0-18.0); Immature Granulocytes # (auto) 0.07 K/uL (0.01-0.20); Immature Granulocytes % (auto) 0.8 %; Lymphocytes # (auto) 0.95 K/uL (1.20-3.40); Lymphocytes % (auto) 10.6 %; Mean Corpuscular Hemoglobin 28.8 pg (25.0-34.0); Mean Corpuscular Hgb Conc 31.4 g/dL (32.0-36.0); Mean Corpuscular Volume 91.9 fL (80.0-100.0); Mean Platelet Volume 12.1 fL (9.4-12.4); Monocytes # (auto) 0.74 K/uL (0.11-0.59); Monocytes % (auto) 8.3 %; Platelet Count 149 K/uL (130-400); RDW Standard Deviation 50.5 fL (36.4-46.3); Red Blood Count 4.82 M/uL (4.70-6.10); White Blood Count 8.96 K/ul (4.8-10.8)
--- NOTE | 2023-08-12 07:18 | Surgery Progress Note ---
Date of Service August 12, 2023 Assessment & Plan (1) Choledocholithiasis with acute cholecystitis: Plan: First postoperative day status post ERCP with stent placement for choledocholithiasis followed by laparoscopic cholecystectomy The patient is doing well would like more to eat Lab this morning showed a white count normal hemoglobin stable creatinine and liver function tests are pending Plan Will increase diet to low-fat diet Patient can be discharged when okay with the primary service To follow-up with Dr. Beltrán in the office in approximately [address] for 1 week and do not lift anything heavier than 10 pounds for 1 week He may shower no bathe Admission and Anticipated Discharge Date Admission Date: August 08, 2023 Subjective Overall feels fine wants more to eat Physical Exam Physical Exam: Alert coherent without any discomfort Sclera nonicteric The abdomen is soft trocar incisions intact slight erythema in the epigastric 1 without any drainage Results & Data Vital Signs (Past 12 Hours) Vital Signs Temp Pulse Pulse Resp BP Pulse Ox O2 Del Method 08/12/23 03:00 36.5 C 76 22 154/78 H 95 Oxymask 08/12/23 01:00 79 08/11/23 23:00 36.6 C 78 22 155/80 H 97 Oxymask 08/11/23 20:30 Oxymask O2 Flow Rate 08/12/23 03:00 08/12/23 01:00 08/11/23 23:00 08/11/23 20:30 4
[2023-08-12 07:32] LABS: Albumin Globulin Ratio 1.2 (0.9-2); Albumin Level 2.9 gm/dl (3.4-5.0); BUN Creatinine Ratio 27.7 (10-20); Bilirubin,Total 1.7 mg/dl (0.2-1.0); Calcium 8.2 mg/dl (8.6-10.3); Creatinine Clr Calc Pharmacy 56.8 ml/min; Est GFR (Non-African American) 71.6 ml/min; Globulin 2.5 gm/dl (2.5-4.0); Total Protein 5.4 gm/dl (6.0-8.3)
[2023-08-12] MEDS: INSULIN ASPART PER UNIT CHARGE SC SCH ×4 (08:35→21:10)
[2023-08-12] MEDS: TAMSULOSIN HCL 0.4 MG CAP PO SCH (08:35)
[2023-08-12] MEDS: LANTUS PER UNIT CHARGE SQ SCH ×2 (08:36→21:10)
[2023-08-12] MEDS: HEPARIN SOD 5,000 UNIT/0.5 ML VIAL SQ SCH ×2 (08:36→21:09)
[2023-08-12] MEDS: traMADol HCL 50 MG TABLET PO PRN (08:38)
--- NOTE | 2023-08-12 11:13 | XRay Report ---
XR chest 1V portable CLINICAL HISTORY: Hypoxia. COMPARISON STUDY: Chest radiograph and chest CT August 08, 2023. FINDINGS: No pneumothorax or pleural the effusion is identified. Elevation the right hemidiaphragm is unchanged. Cardiomegaly is unchanged. There is no evidence for pulmonary edema. No consolidation is identified to suggest pneumonia. The appearance of the chest is unchanged. IMPRESSION: No acute cardiopulmonary findings. No change in appearance of the chest. ACT 112: Negative or not required by law. Electronically signed by: Bill Keith M.D. 08/12/2023 11:10 AM
[2023-08-12] MEDS: D5W AND 1/2NSS 1,000 ML IV SCH (12:08)
--- NOTE | 2023-08-12 13:59 | Hospitalist Progress Note ---
Date of Service August 12, 2023 Assessment & Plan (1) DINORAH (acute kidney injury): Plan: From volume depletion. Serum osmolality 356 on admission. Treated with IV fluids. Monitor intake and output. Serial labs . Improving (2) Hyperbilirubinemia: Plan: Known cholelithiasis and choledocholithiasis. HIDA scan consistent with acute cholecystitis. . General surgery and gastroenterology consultations appreciated. 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 This was followed by laparoscopic cholecystectomy, postoperative day #1. Continue intravenous Zosyn, day 5. (3) Cholelithiasis: Plan: With acute cholecystitis and choledocholithiasis. HIDA scan is consistent with acute cholecystitis. General surgery and gastroenterology consultations appreciated. He underwent ERCP procedure and laparoscopic cholecystectomy on August 11. (4) Rhabdomyolysis: Plan: Mild to moderate elevation of creatinine kinase on admission. Now resolved with IV fluids. Serial labs . Statin therapy is on hold (5) Diabetes mellitus type II, uncontrolled: Plan: ADA diet. Oral medications are on hold. Basal insulin coverage and sliding scale coverage for now. (6) Hypertension: Plan: Indapamide and enalapril are on hold due to volume depletion and acute kidney injury. (7) Hypercholesterolemia: Plan: Statin therapy is on hold due to abnormal liver tests and elevated CK. Plan It appears he will need SNF placement at the time of discharge. OT and PT evaluations requested. Admission and Anticipated Discharge Date Admission Date: August 08, 2023 Subjective Alert and oriented. Daughter is at the bed side. 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 He then had laparoscopic cholecystectomy, postoperative day #1. He remains on intravenous Zosyn. Incidental finding of duodenal ulcer at the time of the ERCP. This is also being treated. Lab studies are improving with sodium down to 144, total bilirubin down to 1.7, CK down to 194, and creatinine down to 0.9. He remains on oxygen however. Repeat chest x-ray reveals low lung volumes and nothing else. Incentive spirometry has been ordered. IV fluids have been changed from 0.225-0.45 normal saline. Therapy evaluations have been requested Review of Systems 2 Review of Systems: Constitutional-no fever or chills ENT-no blurred vision, no double vision, no epistaxis Respiratory-occasional cough. No phlegm. No hemoptysis. No pleuritic pain. No wheezing Cardiac-no palpitations, no chest pain, no syncope GI- Denies nausea, vomiting, diarrhea, melena, hematochezia -no urinary retention, no urinary incontinence, no dysuria, no hematuria Musculoskeletal-no joint pain, no muscle tenderness Skin-no bruising, no rashes, no pruritus. Neuro-generalized weakness. Psych-no depression, no anxiety Physical Exam 2 Physical Exam: General-alert and oriented x3, no fevers, no chills. Appears weak HEENT-head atraumatic and normocephalic, pupils equal and reactive to light, extraocular muscles intact. No scleral icterus Neck-no lymphadenopathy or thyromegaly, trachea midline Chest-diminished breath sounds bilaterally. No rhonchi. No wheezing Cardiac-regular rate and rhythm, normal S1 and S2 Abdomen-normal bowel sounds, no hepatosplenomegaly. Mildly tender at surgical sites Extremities-no cyanosis, clubbing, or edema Neuro-cranial nerves II through XII intact, motor and sensory function within normal limits, strength symmetrical with generalized weakness, no focal deficits Psych-flat affect Results & Data Results & Data Vital Signs (Past 12 Hours) Vital Signs Temp Pulse Resp BP Pulse Ox O2 Del Method O2 Flow Rate 08/12/23 11:28 36.6 C 71 19 135/71 95 Nasal Cannula 4 08/12/23 08:35 Nasal Cannula 4 08/12/23 08:04 36.7 C 73 19 154/68 H 97 Nasal Cannula 4 08/12/23 03:00 36.5 C 76 22 154/78 H 95 Oxymask Laboratory Results 08/12/23 06:06 08/12/23 06:06 PG Care Time/CCT Total # of Minutes Spent Total Time Spent with Patient: Total time spent is greater than 50% in coordination of care (as documented) at patient's floor/unit and/or counseling patient: Coding Level of Care Code 72813 SUB INP/OBS CARE 3/50MIN Diagnoses DINORAH (acute kidney injury) N17.9 Hyperbilirubinemia E80.6 Cholelithiasis K80.20 Rhabdomyolysis M62.82 Diabetes mellitus type II, uncontrolled E11.65 Hypertension I10 Hypercholesterolemia E78.00
[2023-08-13] MEDS: D5W AND 1/2NSS 1,000 ML IV SCH (00:28)
[2023-08-13] MEDS: PIPERACILLIN/TAZOBACTAM 4.5 GM in DEXTROSE 5% MINI-B 100 ML IV SCH ×3 (04:53→20:47)
[2023-08-13 07:00] LABS: Basophils # (auto) 0.05 K/uL (0.00-0.20); Basophils % (auto) 0.6 %; Eosinophils % (auto) 4.5 %; Hematocrit (blood only) 40.8 % (42.0-52.0); Immature Granulocytes # (auto) 0.11 K/uL (0.01-0.20); Immature Granulocytes % (auto) 1.2 %; Lymphocytes # (auto) 1.37 K/uL (1.20-3.40); Lymphocytes % (auto) 15.5 %; Mean Corpuscular Hemoglobin 29.1 pg (25.0-34.0); Mean Corpuscular Hgb Conc 31.9 g/dL (32.0-36.0); Mean Corpuscular Volume 91.3 fL (80.0-100.0); Monocytes # (auto) 0.78 K/uL (0.11-0.59); Monocytes % (auto) 8.8 %; Neutrophils # (auto) 6.14 K/uL (1.40-6.50); Neutrophils % (auto) 69.4 %; Platelet Count 164 K/uL (130-400); RDW Coefficient of Variation 14.8 % (11.5-14.5); RDW Standard Deviation 49.9 fL (36.4-46.3); Red Blood Count 4.47 M/uL (4.70-6.10); White Blood Count 8.85 K/ul (4.8-10.8)
[2023-08-13 07:09] LABS: Albumin Level 2.6 gm/dl (3.4-5.0); BUN Creatinine Ratio 15.2 (10-20); Bilirubin,Total 1.7 mg/dl (0.2-1.0); Calcium 7.8 mg/dl (8.6-10.3); Creatinine Clr Calc Pharmacy 58.1 ml/min; Est GFR (African American) 85.2 ml/min; Est GFR (Non-African American) 73.5 ml/min; Globulin 2.6 gm/dl (2.5-4.0); Potassium 3.6 mmol/L (3.5-5.1); Total Protein 5.2 gm/dl (6.0-8.3)
[2023-08-13] MEDS: TAMSULOSIN HCL 0.4 MG CAP PO SCH (08:49)
[2023-08-13] MEDS: HEPARIN SOD 5,000 UNIT/0.5 ML VIAL SQ SCH ×2 (08:49→20:52)
[2023-08-13] MEDS: INSULIN ASPART PER UNIT CHARGE SC SCH ×4 (08:55→20:52)
[2023-08-13] MEDS: LANTUS PER UNIT CHARGE SQ SCH ×2 (08:55→20:52)
--- NOTE | 2023-08-13 11:51 | Surgery Progress Note ---
Date of Service August 13, 2023 Assessment & Plan (1) Choledocholithiasis with acute cholecystitis: Plan: Patient is 2 days postop ERCP with stent placement laparoscopic cholecystectomy At this point we will advance his diet From surgical point of view the patient can be discharged Follow-up with [facility] physician group surgery Dr. Beltrán approximately 1 week May shower No driving for next 5 days No lifting anything than 10 pounds for the next 5 days Plans discussed with Dr. Da Silva Admission and Anticipated Discharge Date Admission Date: August 08, 2023 Subjective Overall he feels better no further abdominal discomfort tolerating liquids once more to eat Physical Exam Physical Exam: Alert coherent Sclera nonicteric The abdomen completely benign Trocar sites are healing well the epigastric 1 little erythema is unchanged no drainage Results & Data Vital Signs (Past 12 Hours) Vital Signs Temp Pulse Pulse Resp BP Pulse Ox O2 Del Method 08/13/23 11:20 36.4 C L 73 21 146/77 H 95 Nasal Cannula 08/13/23 08:56 Nasal Cannula 08/13/23 07:33 36.3 C L 74 20 161/68 H 95 Nasal Cannula 08/13/23 07:00 66 08/13/23 03:00 36.4 C L 70 23 141/73 H 93 Nasal Cannula O2 Flow Rate 08/13/23 11:20 2 08/13/23 08:56 3 08/13/23 07:33 4 08/13/23 07:00 08/13/23 03:00
--- NOTE | 2023-08-13 13:13 | Hospitalist Progress Note ---
Date of Service August 13, 2023 Assessment & Plan (1) DINORAH (acute kidney injury): Plan: From volume depletion. Serum osmolality 356 on admission. Treated with IV fluids. Monitor intake and output. Serial labs . Resolved (2) Hyperbilirubinemia: Plan: Known cholelithiasis and choledocholithiasis. HIDA scan consistent with acute cholecystitis. General surgery and gastroenterology consultations appreciated. 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 This was followed by laparoscopic cholecystectomy, postoperative day #2. Continue intravenous Zosyn, day 6. (3) Cholelithiasis: Plan: With acute cholecystitis and choledocholithiasis. HIDA scan is consistent with acute cholecystitis. General surgery and gastroenterology consultations appreciated. He underwent ERCP procedure and laparoscopic cholecystectomy on August 11. POD #2 (4) Rhabdomyolysis: Plan: Mild to moderate elevation of creatinine kinase on admission. Now resolved with IV fluids. Serial labs . Statin therapy is on hold (5) Diabetes mellitus type II, uncontrolled: Plan: ADA diet. Oral medications are on hold. Basal insulin coverage and sliding scale coverage for now. (6) Hypertension: Plan: Indapamide and enalapril are on hold due to volume depletion and acute kidney injury POA. (7) Hypercholesterolemia: Plan: Statin therapy is on hold due to abnormal liver tests and elevated CK POA. Plan It appears he will need SNF placement at the time of discharge. OT and PT evaluations requested. Transfer out of PCU today, August 13 Admission and Anticipated Discharge Date Admission Date: August 08, 2023 Subjective Medically stable. He will be transferred out of the PCU today. Diet has been advanced and IV fluids discontinued. Occupational Therapy and physical therapy assessments requested. Sodium improved to 142. He remains on intravenous Zosyn. Postoperative day 2 after ERCP and laparoscopic cholecystectomy. He remains on oxygen per nasal cannula due to suspected atelectasis. Review of Systems 2 Review of Systems: Constitutional-no fever or chills ENT-no blurred vision, no double vision, no epistaxis Respiratory-occasional cough. No phlegm. No hemoptysis. No pleuritic pain. No wheezing Cardiac-no palpitations, no chest pain, no syncope GI- Denies nausea, vomiting, diarrhea, melena, hematochezia -no urinary retention, no urinary incontinence, no dysuria, no hematuria Musculoskeletal-no joint pain, no muscle tenderness Skin-no bruising, no rashes, no pruritus. Neuro-generalized weakness. Psych-no depression, no anxiety Physical Exam 2 Physical Exam: General-alert and oriented x3, no fevers, no chills. Appears weak HEENT-head atraumatic and normocephalic, pupils equal and reactive to light, extraocular muscles intact. No scleral icterus Neck-no lymphadenopathy or thyromegaly, trachea midline Chest-diminished breath sounds bilaterally. No rhonchi. No wheezing Cardiac-regular rate and rhythm, normal S1 and S2 Abdomen-normal bowel sounds, no hepatosplenomegaly. Mildly tender at surgical sites Extremities-no cyanosis, clubbing, or edema Neuro-cranial nerves II through XII intact, motor and sensory function within normal limits, strength symmetrical with generalized weakness, no focal deficits Psych-flat affect Results & Data Results & Data Vital Signs (Past 12 Hours) Vital Signs Temp Pulse Pulse Resp BP Pulse Ox O2 Del Method 08/13/23 11:20 36.4 C L 73 21 146/77 H 95 Nasal Cannula 08/13/23 08:56 Nasal Cannula 08/13/23 07:33 36.3 C L 74 20 161/68 H 95 Nasal Cannula 08/13/23 07:00 66 08/13/23 03:00 36.4 C L 70 23 141/73 H 93 Nasal Cannula O2 Flow Rate 08/13/23 11:20 2 08/13/23 08:56 3 08/13/23 07:33 4 08/13/23 07:00 08/13/23 03:00 Laboratory Results 08/13/23 06:16 08/13/23 06:16 PG Care Time/CCT Total # of Minutes Spent Total Time Spent with Patient: Total time spent is greater than 50% in coordination of care (as documented) at patient's floor/unit and/or counseling patient: Coding Level of Care Code 72517 SUB INP/OBS CARE 3/50MIN Diagnoses DINORAH (acute kidney injury) N17.9 Hyperbilirubinemia E80.6 Cholelithiasis K80.20 Rhabdomyolysis M62.82 Diabetes mellitus type II, uncontrolled E11.65 Hypertension I10 Hypercholesterolemia E78.00
[2023-08-14] MEDS: PIPERACILLIN/TAZOBACTAM 4.5 GM in DEXTROSE 5% MINI-B 100 ML IV SCH (04:54)
[2023-08-14 06:38] LABS: Basophils # (auto) 0.04 K/uL (0.00-0.20); Basophils % (auto) 0.4 %; Eosinophils # (auto) 0.37 K/uL (0.00-0.50); Hematocrit (blood only) 40.6 % (42.0-52.0); Hemoglobin 13.2 g/dl (14.0-18.0); Immature Granulocytes # (auto) 0.14 K/uL (0.01-0.20); Immature Granulocytes % (auto) 1.5 %; Lymphocytes # (auto) 1.37 K/uL (1.20-3.40); Lymphocytes % (auto) 14.9 %; Mean Corpuscular Hemoglobin 28.9 pg (25.0-34.0); Mean Corpuscular Hgb Conc 32.5 g/dL (32.0-36.0); Mean Platelet Volume 11.9 fL (9.4-12.4); Monocytes # (auto) 0.72 K/uL (0.11-0.59); Monocytes % (auto) 7.8 %; Neutrophils # (auto) 6.54 K/uL (1.40-6.50); Neutrophils % (auto) 71.4 %; Platelet Count 167 K/uL (130-400); RDW Coefficient of Variation 14.6 % (11.5-14.5); RDW Standard Deviation 47.7 fL (36.4-46.3); Red Blood Count 4.56 M/uL (4.70-6.10); White Blood Count 9.18 K/ul (4.8-10.8)
[2023-08-14 07:00] LABS: Albumin Level 2.6 gm/dl (3.4-5.0); BUN Creatinine Ratio 12.6 (10-20); Bilirubin,Total 1.8 mg/dl (0.2-1.0); Calcium 8.6 mg/dl (8.6-10.3); Creatinine Clr Calc Pharmacy 56.2 ml/min; Est GFR (African American) 81.9 ml/min; Est GFR (Non-African American) 70.7 ml/min; Globulin 2.6 gm/dl (2.5-4.0); Potassium 3.4 mmol/L (3.5-5.1); Total Protein 5.2 gm/dl (6.0-8.3)
[2023-08-14] MEDS: INSULIN ASPART PER UNIT CHARGE SC SCH ×4 (08:35→20:49)
[2023-08-14] MEDS: LANTUS PER UNIT CHARGE SQ SCH (08:36)
[2023-08-14] MEDS: traMADol HCL 50 MG TABLET PO PRN (08:37)
[2023-08-14] MEDS: TAMSULOSIN HCL 0.4 MG CAP PO SCH (08:37)
--- NOTE | 2023-08-14 08:37 | Surgery Progress Note ---
Date of Service August 14, 2023 Assessment & Plan (1) Hx of cholecystectomy: Plan: Postoperative day #3 He is doing well from my standpoint Currently no surgical issues. Follow-up in 2 weeks. Will sign off call us if any problems or questions Admission and Anticipated Discharge Date Admission Date: August 08, 2023 Subjective Patient seen. States he is feeling well. Denies any pain. Tolerating his breakfast Physical Exam Physical Exam: Alert. No acute distress Abdomen is soft. Nontender. Incisions look good Results & Data Vital Signs (Past 12 Hours) Vital Signs Temp Pulse Pulse Resp BP Pulse Ox O2 Del Method 08/14/23 07:23 36.3 C L 74 16 148/74 H 95 Nasal Cannula 08/14/23 07:14 75 08/14/23 03:00 36.4 C L 69 23 139/87 95 Nasal Cannula 08/13/23 23:00 36.6 C 77 20 140/84 95 Nasal Cannula 08/13/23 22:04 77 O2 Flow Rate 08/14/23 07:23 2.0 08/14/23 07:14 08/14/23 03:00 08/13/23 23:00 08/13/23 22:04 PG Care Time/CCT Total # of Minutes Spent Total Time Spent with Patient: Total time spent is greater than 50% in coordination of care (as documented) at patient's floor/unit and/or counseling patient: Coding Level of Care Code 41821 Post Operative Follow-Up Diagnoses Hx of cholecystectomy Z90.49
[2023-08-14] MEDS: HEPARIN SOD 5,000 UNIT/0.5 ML VIAL SQ SCH ×2 (08:38→20:59)
--- NOTE | 2023-08-14 15:16 | Hospitalist Progress Note ---
Date of Service August 14, 2023 Assessment & Plan (1) DINORAH (acute kidney injury): Plan: From volume depletion on admission. Serum osmolality 356 on admission. Treated with IV fluids. Monitor intake and output. Serial labs . Resolved (2) Hyperbilirubinemia: Plan: Known cholelithiasis and choledocholithiasis. HIDA scan consistent with acute cholecystitis. General surgery and gastroenterology consultations appreciated. 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 This was followed by laparoscopic cholecystectomy, postoperative day #3. Zosyn has been switched to oral Augmentin. Antibiotics will continue for total of 2 weeks per surgery and GI recommendations. (3) Cholelithiasis: Plan: With acute cholecystitis and choledocholithiasis. HIDA scan is consistent with acute cholecystitis. General surgery and gastroenterology consultations appreciated. He underwent ERCP procedure and laparoscopic cholecystectomy on August 11. POD #3 (4) Rhabdomyolysis: Plan: Mild to moderate elevation of creatinine kinase on admission. Now resolved with IV fluids. Serial labs . Statin therapy remains on hold (5) Diabetes mellitus type II, uncontrolled: Plan: ADA diet. Hypoglycemic today, August 14. Lantus is discontinued. Will restart usual oral medications as needed. Continue sliding scale coverage (6) Hypertension: Plan: Indapamide and enalapril are on hold due to volume depletion and acute kidney injury POA. They have not been restarted as of yet (7) Hypercholesterolemia: Plan: Statin therapy is on hold . This can be restarted at a later date Plan It appears he will need SNF placement at the time of discharge. OT and PT evaluations requested. Posey catheter will be removed today, Admission and Anticipated Discharge Date Admission Date: August 08, 2023 Subjective Alert and oriented. Continued improvement and stability. Surgery entry noted. Postoperative day #3 after ERCP and laparoscopic cholecystectomy. Zosyn has been switched to oral Augmentin which we will continue for a total of 2 weeks of antibiotic therapy. Oxygen has been weaned down to 2 L. Glucose is low this morning. Lantus has been discontinued. He does not take basal insulin at home. Posey catheter will be removed today, August 14. He will need rehab placement before he can eventually go home. Review of Systems 2 Review of Systems: Constitutional-no fever or chills ENT-no blurred vision, no double vision, no epistaxis Respiratory-occasional cough. No phlegm. No hemoptysis. No pleuritic pain. No wheezing Cardiac-no palpitations, no chest pain, no syncope GI- Denies nausea, vomiting, diarrhea, melena, hematochezia -no urinary retention, no urinary incontinence, no dysuria, no hematuria Musculoskeletal-no joint pain, no muscle tenderness Skin-no bruising, no rashes, no pruritus. Neuro-generalized weakness. Psych-no depression, no anxiety Physical Exam 2 Physical Exam: General-alert and oriented x3, no fevers, no chills. Appears weak HEENT-head atraumatic and normocephalic, pupils equal and reactive to light, extraocular muscles intact. No scleral icterus Neck-no lymphadenopathy or thyromegaly, trachea midline Chest-diminished breath sounds bilaterally. No rhonchi. No wheezing Cardiac-regular rate and rhythm, normal S1 and S2 Abdomen-normal bowel sounds, no hepatosplenomegaly. Mildly tender at surgical sites Extremities-no cyanosis, clubbing, or edema Neuro-cranial nerves II through XII intact, motor and sensory function within normal limits, strength symmetrical with generalized weakness, no focal deficits Psych-flat affect Results & Data Results & Data Vital Signs (Past 12 Hours) Vital Signs Temp Pulse Pulse Resp BP Pulse Ox O2 Del Method 08/14/23 11:06 36.3 C L 80 20 136/76 96 Nasal Cannula 08/14/23 08:20 Nasal Cannula 08/14/23 07:23 36.3 C L 74 16 148/74 H 95 Nasal Cannula 08/14/23 07:14 75 O2 Flow Rate 08/14/23 11:06 2.0 08/14/23 08:20 2 08/14/23 07:23 2.0 08/14/23 07:14 Laboratory Results 08/14/23 05:57 08/14/23 05:57 PG Care Time/CCT Total # of Minutes Spent Total Time Spent with Patient: Total time spent is greater than 50% in coordination of care (as documented) at patient's floor/unit and/or counseling patient: Coding Level of Care Code 54085 SUB INP/OBS CARE 3/50MIN Diagnoses DINORAH (acute kidney injury) N17.9 Hyperbilirubinemia E80.6 Cholelithiasis K80.20 Rhabdomyolysis M62.82 Diabetes mellitus type II, uncontrolled E11.65 Hypertension I10 Hypercholesterolemia E78.00
[2023-08-14] MEDS: AMOXICILLIN/CLAVULANATE 875 MG TAB PO SCH (17:03)
[2023-08-15 07:02] LABS: Basophils # (auto) 0.05 K/uL (0.00-0.20); Basophils % (auto) 0.5 %; Eosinophils # (auto) 0.38 K/uL (0.00-0.50); Eosinophils % (auto) 3.8 %; Hematocrit (blood only) 40.2 % (42.0-52.0); Hemoglobin 13.1 g/dl (14.0-18.0); Lymphocytes # (auto) 1.75 K/uL (1.20-3.40); Lymphocytes % (auto) 17.6 %; Mean Corpuscular Hemoglobin 28.9 pg (25.0-34.0); Mean Corpuscular Hgb Conc 32.6 g/dL (32.0-36.0); Mean Corpuscular Volume 88.7 fL (80.0-100.0); Monocytes # (auto) 0.88 K/uL (0.11-0.59); Monocytes % (auto) 8.8 %; Neutrophils # (auto) 6.69 K/uL (1.40-6.50); Neutrophils % (auto) 67.3 %; Platelet Count 197 K/uL (130-400); RDW Coefficient of Variation 14.8 % (11.5-14.5); RDW Standard Deviation 47.5 fL (36.4-46.3); Red Blood Count 4.53 M/uL (4.70-6.10); White Blood Count 9.95 K/ul (4.8-10.8)
[2023-08-15 07:29] LABS: Albumin Level 2.6 gm/dl (3.4-5.0); BUN Creatinine Ratio 13.6 (10-20); Bilirubin,Total 1.2 mg/dl (0.2-1.0); Calcium 8.9 mg/dl (8.6-10.3); Creatinine Clr Calc Pharmacy 64.4 ml/min; Est GFR (African American) 88.3 ml/min; Est GFR (Non-African American) 76.2 ml/min; Globulin 2.7 gm/dl (2.5-4.0); Potassium 3.8 mmol/L (3.5-5.1); Total Protein 5.3 gm/dl (6.0-8.3)
[2023-08-15] MEDS: TAMSULOSIN HCL 0.4 MG CAP PO SCH (07:58)
[2023-08-15] MEDS: AMOXICILLIN/CLAVULANATE 875 MG TAB PO SCH ×2 (08:03→17:40)
[2023-08-15] MEDS: INSULIN ASPART PER UNIT CHARGE SC SCH ×4 (08:03→21:10)
[2023-08-15] MEDS: HEPARIN SOD 5,000 UNIT/0.5 ML VIAL SQ SCH ×2 (08:06→21:13)
[2023-08-15] MEDS: POLYETHYLENE (MIRALAX) 17 GM PACK PO SCH (10:02)
--- NOTE | 2023-08-15 17:49 | Hospitalist Progress Note ---
Date of Service August 15, 2023 Assessment & Plan (1) DINORAH (acute kidney injury): Plan: From volume depletion on admission. Serum osmolality 356 on admission. Treated with IV fluids. Monitor intake and output. Serial labs . Resolved (2) Hyperbilirubinemia: Plan: Known cholelithiasis and choledocholithiasis. HIDA scan consistent with acute cholecystitis. General surgery and gastroenterology consultations appreciated. 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 This was followed by laparoscopic cholecystectomy, postoperative day #4 continue Augmentin (3) Cholelithiasis: Plan: With acute cholecystitis and choledocholithiasis. HIDA scan is consistent with acute cholecystitis. General surgery and gastroenterology consultations appreciated. He underwent ERCP procedure and laparoscopic cholecystectomy on D 1. POD #4 (4) Rhabdomyolysis: Plan: Mild to moderate elevation of creatinine kinase on admission. Now resolved with IV fluids. Serial labs . Statin therapy remains on hold (5) Diabetes mellitus type II, uncontrolled: Plan: ADA diet Continue sliding scale coverage (6) Hypertension: Plan: Indapamide and enalapril are on hold due to volume depletion and acute kidney injury POA. They have not been restarted as of yet (7) Hypercholesterolemia: Plan: Resume statin Plan The patient is declined for acute rehab, I did P2P review with his insurance patient is accepted for subacute rehab, pending placement, possibly happen tomorrow as per my discussion with the human services case manager, discussed with the daughter Admission and Anticipated Discharge Date Admission Date: August 08, 2023 Subjective No complaint today, postoperative day #4 after ERCP and laparoscopic cholecystectomy , continue Augmentin for a total of 2 weeks of antibiotic therapy Review of Systems Review of Systems: Constitutional-no fever or chills ENT-no blurred vision, no double vision, no epistaxis Respiratory-occasional cough. No phlegm. No hemoptysis. No pleuritic pain. No wheezing Cardiac-no palpitations, no chest pain, no syncope GI- Denies nausea, vomiting, diarrhea, melena, hematochezia -no urinary retention, no urinary incontinence, no dysuria, no hematuria Musculoskeletal-no joint pain, no muscle tenderness Skin-no bruising, no rashes, no pruritus. Neuro-generalized weakness. Psych-no depression, no anxiety Constitutional: no fever and no chills Cardiovascular: no chest pain Gastrointestinal: no abdominal pain, no nausea and no vomiting Musculoskeletal: Hx of fall Physical Exam Physical Exam: General-alert and oriented x3, no fevers, no chills. Appears weak HEENT-head atraumatic and normocephalic, pupils equal and reactive to light, extraocular muscles intact. No scleral icterus Neck-no lymphadenopathy or thyromegaly, trachea midline Chest-diminished breath sounds bilaterally. No rhonchi. No wheezing Cardiac-regular rate and rhythm, normal S1 and S2 Abdomen-normal bowel sounds, no hepatosplenomegaly. Mildly tender at surgical sites Extremities-no cyanosis, clubbing, or edema Neuro-cranial nerves II through XII intact, motor and sensory function within normal limits, strength symmetrical with generalized weakness, no focal deficits Psych-flat affect Constitutional: well developed, well nourished, average body habitus, cooperative and comfortable; no acute distress Eyes: PERRL, conjunctivae normal, anicteric sclerae ENMT: Mouth: no dentition abnormality Mallampati Class: III Neck: trachea midline, no thyromegaly normal visual inspection Respiratory: normal respiratory effort, lungs clear to auscultation normal respiratory effort and able to speak in complete sentences; no respiratory distress Auscultation: lungs clear to auscultation bilaterally Cardiovascular: RRR, no murmur, no edema Rate/Rhythm: regular rate, regular rhythm and + tachycardic (91) Heart Sounds: no murmur Gastrointestinal (Abdomen): normal bowel sounds, soft, nontender, no hepatosplenomegaly Inspection/Auscultation: abdomen not distended and no abdominal surgical incision Percussion/Palpation: + abdomen tender (TTP in RUQ reports pressure, pt unable to rate pain on scale ) and abdomen soft; no guarding Musculoskeletal: Spine: normal cervical ROM Skin: no rashes, warm and dry Neurologic: PERRL, EOMI, accommodation nl, no face palsy, no dysarthria Psychiatric: A+Ox3, euthymic affect Orientation: alert and oriented x 3 Lymphatic: no cervical or axillary lymphadenopathy Results & Data Results & Data Vital Signs (Past 12 Hours) Vital Signs Temp Pulse Pulse Resp BP Pulse Ox O2 Del Method 08/15/23 15:29 83 08/15/23 15:15 36.8 C 84 18 128/68 96 Room Air 08/15/23 07:37 36.7 C 74 18 131/77 93 Room Air 08/15/23 07:08 Room Air 08/15/23 07:06 81 PG Care Time/CCT Total # of Minutes Spent Total Time Spent with Patient: Total time spent is greater than 50% in coordination of care (as documented) at patient's floor/unit and/or counseling patient: Coding Level of Care Code 89204 SUB INP/OBS CARE 2/35MIN Diagnoses DINORAH (acute kidney injury) N17.9 Hyperbilirubinemia E80.6 Cholelithiasis K80.20 Rhabdomyolysis M62.82 Diabetes mellitus type II, uncontrolled E11.65 Hypertension I10 Hypercholesterolemia E78.00
[2023-08-16] MEDS: POLYETHYLENE (MIRALAX) 17 GM PACK PO SCH (08:12)
[2023-08-16] MEDS: AMOXICILLIN/CLAVULANATE 875 MG TAB PO SCH (08:12)
[2023-08-16] MEDS: TAMSULOSIN HCL 0.4 MG CAP PO SCH (08:12)
[2023-08-16] MEDS: traMADol HCL 50 MG TABLET PO PRN (08:17)
[2023-08-16] MEDS: INSULIN ASPART PER UNIT CHARGE SC SCH ×2 (08:18→12:38)
[2023-08-16] MEDS: HEPARIN SOD 5,000 UNIT/0.5 ML VIAL SQ SCH (11:06)
--- NOTE | 2023-08-16 19:28 | Discharge Summary ---
Date of Service August 16, 2023 Admission HPI Per Admitting Provider Koffi Walker is an 87yo male with history of HTN, HLP, DM and prior cholangitis presenting from home after being found down by family. Patient lives alone and is fairly independent. He has multiple family members nearby that provide support. Patient was last seen well on 08/04/23 and a family member spoke with him and he was normal on 08/06/23. This morning he did not answer his phone so his daughter went to check on him and he was found down in the bathroom. His cane was in the tub and the patient was laying on his back with his legs draped over the tub. His daughter reports that patient was awake but confused, incontinent of both stool and urine. Daughter reports that he had a lot of phlegm and a very dry mouth. Patient offers no complaints at this time. ER Course: NSS x 1L Principal Diagnosis Acute kidney injury due to acute cholecystitis,, acute cholecystitis status post laparoscopic cholecystectomy Discharge Exam General-alert and oriented x3, no fevers, no chills. Appears weak HEENT-head atraumatic and normocephalic, pupils equal and reactive to light, extraocular muscles intact. No scleral icterus Neck-no lymphadenopathy or thyromegaly, trachea midline Chest-diminished breath sounds bilaterally. No rhonchi. No wheezing Cardiac-regular rate and rhythm, normal S1 and S2 Abdomen-normal bowel sounds, no hepatosplenomegaly. Mildly tender at surgical sites Extremities-no cyanosis, clubbing, or edema Neuro-cranial nerves II through XII intact, motor and sensory function within normal limits, strength symmetrical with generalized weakness, no focal deficits Psych-flat affect Constitutional well developed, well nourished, average body habitus, cooperative and comfortable; no acute distress Eyes PERRL, conjunctivae normal, anicteric sclerae ENMT Mouth: no dentition abnormality Mallampati Class: III Neck trachea midline, no thyromegaly normal visual inspection Respiratory normal respiratory effort, lungs clear to auscultation normal respiratory effort and able to speak in complete sentences; no respiratory distress Auscultation: lungs clear to auscultation bilaterally Cardiovascular RRR, no murmur, no edema Rate/Rhythm: regular rate, regular rhythm and + tachycardic (91) Heart Sounds: no murmur Gastrointestinal (Abdomen) normal bowel sounds, soft, nontender, no hepatosplenomegaly Inspection/Auscultation: abdomen not distended and no abdominal surgical incision Percussion/Palpation: + abdomen tender (TTP in RUQ reports pressure, pt unable to rate pain on scale ) and abdomen soft; no guarding Musculoskeletal Spine: normal cervical ROM Skin no rashes, warm and dry Neurologic PERRL, EOMI, accommodation nl, no face palsy, no dysarthria Psychiatric A+Ox3, euthymic affect Orientation: alert and oriented x 3 Lymphatic no cervical or axillary lymphadenopathy Discharge Data Allergies Allergy/AdvReac Type Severity Reaction Status Date / Time No Known Allergies Allergy Unknown Verified 08/08/23 17:09 Consultations 08/08/23 19:38 ED Decision to Admit Stat 08/10/23 13:52 Consult General Surgery Routine 08/10/23 15:05 Consult Gastroenterology Routine Procedures Performed Operation Date: 08/11/23 10:30 Actual Procedures p Endoscopic Retrograde Cholangiopancreatogram(Not Applicable) - Mika Wilburn, s Laparoscopic Cholecystectomy(Not Applicable) - Skip Beltrán, Ordered Studies 08/08/23 16:16 CT abd pelvis IV con only Stat CT cervical spine wo con Stat CT chest diagnostic w con Stat CT head/brain wo con Stat 08/11/23 [place] ERCP biliary ductal Routine Hospital Course (1) DINORAH (acute kidney injury): From volume depletion on admission. Serum osmolality 356 on admission. Treated with IV fluids. Monitor intake and output. Serial labs . Resolved (2) Hyperbilirubinemia: Known cholelithiasis and choledocholithiasis. HIDA scan consistent with acute cholecystitis. General surgery and gastroenterology consultations appreciated. 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 This was followed by laparoscopic cholecystectomy, as per surgery recommendation patient discharged on Augmentin (3) Cholelithiasis: With acute cholecystitis and choledocholithiasis. HIDA scan is consistent with acute cholecystitis. General surgery and gastroenterology consultations appreciated. He underwent ERCP procedure and laparoscopic cholecystectomy on August 11 (4) Rhabdomyolysis: Mild to moderate elevation of creatinine kinase on admission. Now resolved with IV fluids. Serial labs . Statin therapy remains on hold (5) Diabetes mellitus type II, uncontrolled: ADA diet Continue sliding scale coverage (6) Hypertension: Indapamide and enalapril are on hold due to volume depletion and acute kidney injury POA. Acute kidney injury resolved, medication will resume (7) Hypercholesterolemia: Resume statin Plan The patient is declined for acute rehab, I did P2P review with his insurance patient is accepted for subacute rehab, pending placement, possibly happen tomorrow as per my discussion with the case fitter, discussed with the daughter Total Time Total Time Spent Total Time Spent (In Minutes): 45 mins Discharge Plan Discharge Items Patient Disposition: Transfer Inpatient Rehab Fac Reason For Visit: FALL, DEHYDRATION Discharge Diagnosis: cholecystitis Condition on Discharge: Good Activity: As commented below Lifting: No more than 10 pounds Bathing Comment: you can shower, no pools or baths for 2 weeks Exercise/Sports: Wait until after follow-up appointment Non-emergency contact: Surgeon Call non-emergency contact if: you have any medication questions, your symptoms worsen, your pain is unusual for you, your temperature is above 101.5, your wound has increased redness, your wound has increased drainage and your wound pain has increased Follow-up/Referrals: ProRich MD [Primary Care Provider] - Skip Beltrán DO [Surgeon] - (call office for a follow up in 2 weeks ) Diet: Carb Consistent or DM2 Addtl Attending Provider Instructions: You have surgical glue called dermabond on your surgical site incisions. You may shower with this on. This will tend to come off within a couple of weeks. Do not pick at it. Pending Studies at Discharge: No Stand-Alone Forms: My [facility] Skilled Items Patient informed of condition?: Yes DNR: No Discharge Level of Care: Skilled Communicable Disease: No Discharge Prognosis: Stable Lines: None Urinary Catheter: No Medications and DC Order Prescriptions: New amoxicillin-pot clavulanate 875-125 mg Tablet 1 tab PO BIDM Qty: 20 0RF Continued glipizide 5 mg tablet extended release 24hr 5 mg PO DAILY Qty: 90 3RF cholecalciferol (vitamin D3) 1,250 mcg (50,000 unit) capsule 50,000 unit PO .ONCE WEEKLY Qty: 12 0RF enalapril maleate 10 mg tablet 10 mg PO BID Qty: 180 3RF Jardiance 25 mg tablet 25 mg PO DAILY Qty: 90 3RF Rybelsus 3 mg tablet 3 mg PO DAILY 30 Days Qty: 30 0RF Rybelsus 7 mg tablet 7 mg PO DAILY Qty: 30 1RF Rx Instructions: Start the 7 mg daily if no side effects tamsulosin [Flomax] 0.4 mg capsule 0.4 mg PO DAILY Qty: 90 3RF Rx Instructions: 30 minutes after a meal atorvastatin 40 mg tablet 40 mg PO HS Qty: 90 3RF indapamide 1.25 mg tablet 1.25 mg PO QAM Qty: 90 3RF Hold Instructions: per providr metformin 1,000 mg tablet 1,000 mg PO BID Qty: 180 3RF aspirin 81 mg Tablet,Delayed Release (Dr/Ec) 81 mg PO DAILY Discontinued ibuprofen [Advil] 200 mg Tablet 200 mg PO Q6H PRN (Reason: Pain) Discharge Orders: Discharge Order (Routine); Ordered 08/16/23 Ordered By: Sam Benitez Admission Data Admit Date/Time: 08/08/23 20:12 Attending Provider: Sam Benitez Admit Provider: Razia Bartlett Primary Care Provider: Rich Warren Other Providers: [facility]; [place]; Razia Bartlett; Bryson Yang; Noble Diggs; Hans Manjarrez; Skip Beltrán; Francisco Segundo; Nathalie Pizarro; Soren Mejia; Ra Wilson; Ld Padilla; Sammy Morris; Mika Wilburn; [facility] Coding Level of Care Code 11031 INP/OBS DISCH >30 MIN Diagnoses DINORAH (acute kidney injury) N17.9 Hyperbilirubinemia E80.6 Cholelithiasis K80.20 Rhabdomyolysis M62.82 Diabetes mellitus type II, uncontrolled E11.65 Hypertension I10 Hypercholesterolemia E78.00
== END 2023-08-16 16:36 | DRG 853 ==
LOC: ED 16:10 → SUATTDRO 20:12 → EDINP 20:12 → 2E 22:08

== ENCOUNTER 2023-09-09 16:21 | Inpatient (IN) ==
--- NOTE | 2023-09-09 16:53 | XRay Report ---
XR chest 1V portable HISTORY: 87 years-old Male fatigue, facial droop acute fatigue COMPARISON: Chest radiograph 08/12/2023 TECHNIQUE: Supine AP view of the chest FINDINGS: Cardiac silhouette is enlarged. Mild right hemidiaphragmatic elevation. Bibasilar linear subsegmental opacities. No pneumothorax or large pleural effusion. Limited study secondary to positioning. Degene rative changes of the shoulders and spine. IMPRESSION: 1. Cardiomegaly without pulmonary edema. 2. Chronic right hemidiaphragmatic elevation with bibasilar atelectasis. ACT 112: Negative or not required by law. The above report was generated using voice recognition software. It may contain grammatical, syntax o r spelling errors. Electronically signed by: Boogie Burden M.D. 09/09/2023 4:52 PM
--- NOTE | 2023-09-09 17:09 | Emergency Department Note ---
Impression & Plan Weakness, Fatigue, Stroke-like symptoms ED Provider Note Provider: Alejandro Morrissey MD DATE OF SERVICE: 09/09/2023 CHIEF COMPLAINT: Fatigue, left facial droop, left weakness HISTORY OF PRESENT ILLNESS: Patient is a 87-year-old gentleman past medical history including diabetes, urinary frequency, cholangitis status postcholecystectomy, decubitus back ulcers, and significant arthritis of the right shoulder presenting here today via ambulance from home. Patient seen normal around noon. Was himself by report of family. Evidently they woke sometime between 2 and 3 and has to use the bathroom. He was assisted up from his chair and was much more weak in the left arm and leg than normal. Drowsy and somewhat difficult to arouse according to daughter. Had to actually pry his eye opens according to the daughter. EMS was activated. Patient otherwise well. On Augmentin for back wounds. Lower back and according to daughter is still somewhat large. No reports of any significant fevers or complaints earlier. No falls or trauma reported. She states he is a bit more awake and talking a little bit clearer than before but still somewhat garbled with left facial droop and more fatigued than his normal baseline. PAST MEDICAL HISTORY: As noted above MEDICATIONS: Reviewed medication list from home, currently on Augmentin SOCIAL HISTORY: Lives at home with family support PHYSICAL EXAM: GENERAL: alert and oriented in no acute distress on stretcher to verbal stimuli otherwise resting with his eyes closed. Appears drowsy Head: normocephalic and atraumatic EYES: No injection, discharge or icterus. PERRL 3 mm bilaterally, EOMI. NECK: Trachea midline. Supple. ENT: Mucous membranes pink and moist. Pharynx without erythema or exudate. LUNGS: Airway patent. No retractions. Breath sounds clear with good air entry bilaterally. HEART: Regular rate and rhythm. No chest wall tenderness ABDOMEN: Soft and non-tender, without guarding or rebound. SKIN: Acyanotic, warm, dry, without rashes EXTREMITIES: Without swelling, tenderness or deformity NEUROLOGICAL: Mild left facial droop appreciated. Tongue midline. Slight slurred speech but no clear aphasia. Follows commands and moves all extremities but somewhat weak in the left arm. Somewhat limitations in the right arm due to shoulder pain that is chronic. No sensation difference report of the face arms or legs. EK bpm sinus rhythm low but at baseline artifact. Right bundle branch block. No acute ST segment elevation noted with some lead III/aVF T wave inversion. CONTINUOUS CARDIAC MONITORING: was ordered and showed a heart rate of 70s bpm in sinus rhythm Patient's laboratory studies and imaging reviewed. Differential includes Infection, dehydration, metabolic abnormality, hypo/hyperglycemia, electrolyte disturbance, anemia, hypoxia, cardiac sources, intracerebral event, toxicologic, neurologic, as well as other pathologies. IMPRESSION/MEDICAL DECISION MAKING: He arrives here approximately 4 and half hours after his last known well. As such not made immediate stroke alert as he is outside thrombolytic window. Fatigued but arousable with voice. Follows commands but does seem somewhat weaker on the left side with a bit of left facial droop. Mildly slurring speech. Will complete CTAs to look for any signs of intracranial bleed or stroke or vascular abnormality. Given the wound in his low back and urinary symptoms we will do an infectious workup as well. No significant leukocytosis. Has been on Augmentin. No signs of significant renal dysfunction or severe electrolyte abnormality today. EKG completed as well as troponin without severe abnormalities. Chest x-ray per radiology report with cardiomegaly without pulmonary edema and chronic right hemidiaphragm elevation and atelectasis. VBG reassuring here. Borderline O2 levels on room air. Discussed with the patient and family at bedside. All testing results are generally reassuring and he is more awake now still with some increased generalized weakness and increased more focal weakness in the left side. Again CT reports without obvious evidence of stroke or vascular occlusion. Did make him aware of the stenoses. Will cover with ceftriaxone as he just provided urine sample in case with any mild infectious component to it. UA does return not impressive for infection. COVID testing sent. Blood cultures have been sent. Given his increased weakness and lack of clear explanation with some persistent left-sided weakness he was in agreement to stay in the hospital as well as family. Hospitalist team contacted. DIAGNOSIS: Strokelike symptoms, weakness, fatigue DISPOSITION: Hospitalist will evaluate Past Med/Surg History Medical History (Updated 09/09/23 @ 21:11 by Razia Bartlett DO) Hyperbilirubinemia Rhabdomyolysis DINORAH (acute kidney injury) Choledocholithiasis with acute cholecystitis Cholelithiasis History of acute cholangitis SNHL (sensorineural hearing loss) Hypercholesterolemia Diabetes Hemorrhoids Surgical History S/P ERCP (08/11/23) Endoscopic Retrograde Cholangiopancreatogram - Mika Wilburn DO Laparoscopic Cholecystectomy - Skip Beltrán DO Hx laparoscopic cholecystectomy (08/11/23) Endoscopic Retrograde Cholangiopancreatogram - Mika Wilburn DO Laparoscopic Cholecystectomy - Skip Beltrán DO Hx of cholecystectomy Hx of transurethral resection of prostate History of arthroplasty of knee Hx of hernia repair Hx of appendectomy Family History Mother Diabetes Father Heart disease Denies family history of Ovarian cancer Prostate cancer Myocardial infarction Breast cancer Colorectal cancer Social History Smoking Status: Never smoker Second Hand Exposure: Yes; Hx Alcohol Use: No Hx Substance Use: No Preferred Language: Jamaican Communication Ability: Impaired Visual Impairment: No Limitations Hearing Ability: Use of Hearing Aid Cancer Registry Coordinator Required: No marital status: / Current Living Situation: Alone current occupational status: retired How many Children do You have: 5 Feels Safe at Home: Yes Childhood Exposure to Second-Hand Smoke: Yes Diet: regular during the past year weight has: remained stable Dental Care, Regularly: Yes Physical Activity Frequency: 1-2 Times per Week Seatbelt Use: always Sunscreen Use: Yes Assistive Devices: Cane Allergies Allergies Allergy/AdvReac Type Severity Reaction Status Date / Time No Known Allergies Allergy Unknown Verified 09/09/23 18:14 Home Meds Home Medications Medication Instructions Recorded Confirmed aspirin 81 mg tablet,delayed 81 mg PO DAILY 12/20/20 09/09/23 release collagenase clostridium histo. 250 1 applic topical DAILY PRN Wound 09/09/23 09/09/23 unit/gram topical ointment (Santyl) Care ergocalciferol (vitamin D2) 1,250 50,000 unit PO WK 09/09/23 09/09/23 mcg (50,000 unit) capsule (Vitamin D2) Previous Rx's Medication Instructions Recorded amoxicillin 875 mg-potassium 1 tab PO BID 14 days #28 tabs 08/31/23 clavulanate 125 mg tablet atorvastatin 40 mg tablet 40 mg PO HS #30 tabs 09/06/23 enalapril maleate 10 mg tablet 10 mg PO DAILY #30 tabs 09/06/23 indapamide 1.25 mg tablet 1.25 mg PO QAM #30 tabs 09/06/23 metformin 1,000 mg tablet 1,000 mg PO BID #60 tabs 09/06/23 semaglutide 7 mg tablet (Rybelsus) 7 mg PO DAILY #30 tabs 09/06/23 tamsulosin 0.4 mg capsule (Flomax) 0.4 mg PO DAILY #30 caps 09/06/23 Results & Data (ED) Vital Signs Vital Signs - 24 hr 09/09/23 16:36 09/09/23 16:58 09/09/23 17:00 Temperature 36.8 C Temperature Source Oral Pulse Rate 76 71 78 Pulse Rate [Apical] Pulse Rate from SpO2 Sensor 71 77 Respiratory Rate 19 23 24 Respiratory Effort / Characteristics Non-Labored Spontaneous Respiratory Depth Normal Respiratory Pattern Regular Blood Pressure 111/59 L Blood Pressure [Left Arm] Blood Pressure Mean 76 Blood Pressure Mean [Left Arm] Pulse Oximetry 92 91 94 Oxygen Delivery Method Room Air Oxygen Flow Rate Sepsis Recent Fever Within 48 Hours No Sepsis New/Unexplained Change in Mental Status No Sepsis Action Taken by Nursing No Action Required 09/09/23 17:16 09/09/23 17:46 09/09/23 17:54 Temperature Temperature Source Pulse Rate 76 Pulse Rate [Apical] Pulse Rate from SpO2 Sensor Respiratory Rate Respiratory Effort / Characteristics Respiratory Depth Respiratory Pattern Blood Pressure 120/78 Blood Pressure [Left Arm] Blood Pressure Mean 92 Blood Pressure Mean [Left Arm] Pulse Oximetry 97 Oxygen Delivery Method Nasal Cannula Oxygen Flow Rate 2 Sepsis Recent Fever Within 48 Hours Sepsis New/Unexplained Change in Mental Status Sepsis Action Taken by Nursing 09/09/23 18:00 09/09/23 18:01 09/09/23 18:30 Temperature Temperature Source Pulse Rate 74 74 75 Pulse Rate [Apical] Pulse Rate from SpO2 Sensor 73 72 74 Respiratory Rate 25 H 18 26 H Respiratory Effort / Characteristics Respiratory Depth Respiratory Pattern Blood Pressure 106/67 Blood Pressure [Left Arm] Blood Pressure Mean 80 Blood Pressure Mean [Left Arm] Pulse Oximetry 99 100 98 Oxygen Delivery Method Oxygen Flow Rate Sepsis Recent Fever Within 48 Hours Sepsis New/Unexplained Change in Mental Status Sepsis Action Taken by Nursing 09/09/23 18:31 09/09/23 19:39 09/09/23 20:16 Temperature Temperature Source Pulse Rate 74 79 Pulse Rate [Apical] 72 Pulse Rate from SpO2 Sensor 75 Respiratory Rate 21 20 Respiratory Effort / Characteristics Non-Labored Spontaneous Respiratory Depth Normal Respiratory Pattern Blood Pressure 115/80 Blood Pressure [Left Arm] 131/89 Blood Pressure Mean 91 Blood Pressure Mean [Left Arm] 103 Pulse Oximetry 97 97 Oxygen Delivery Method Room Air Oxygen Flow Rate Sepsis Recent Fever Within 48 Hours Sepsis New/Unexplained Change in Mental Status Sepsis Action Taken by Nursing Laboratory Data 09/09/23 17:12 09/09/23 18:10 Lab Results 09/09/23 09/09/23 09/09/23 Range/Units 17:12 17:21 18:10 WBC 10.42 (4.8-10.8) K/ul RBC 4.71 (4.70-6.10) M/uL Hgb 13.9 L (14.0-18.0) g/dl POC Hgb 13.6 L (14.0-18.0) g/dl Hct 40.1 L (42.0-52.0) % POC Hct 40 L (42-52) % MCV 85.1 (80.0-100.0) fL MCH 29.5 (25.0-34.0) pg MCHC 34.7 (32.0-36.0) g/dL RDW Std Deviation 43.9 (36.4-46.3) fL RDW Coeff of Gato 14.2 (11.5-14.5) % Plt Count 236 (130-400) K/uL MPV 11.5 (9.4-12.4) fL Immature Gran % (Auto) 0.7 % Neut % (Auto) 60.9 % Lymph % (Auto) 22.4 % Bertie % (Auto) 10.2 % Eos % (Auto) 5.1 % Baso % (Auto) 0.7 % Neut # (Auto) 6.36 (1.40-6.50) K/uL Lymph # (Auto) 2.33 (1.20-3.40) K/uL Bertie # (Auto) 1.06 H (0.11-0.59) K/uL Eos # (Auto) 0.53 H (0.00-0.50) K/uL Baso # (Auto) 0.07 (0.00-0.20) K/uL Immature Gran # (Auto) 0.07 (0.01-0.20) K/uL PT Cancelled 11.6 INR Cancelled 1.1 APTT Cancelled 25 PTT Ratio Cancelled 0.9 VBG pH (7.36-7.41) VBG pCO2 (38-50) mmHg VBG pO2 mmHg VBG HCO3 mmol/L VBG O2 Saturation % VBG Base Excess mEq/L POC Sodium 133 L (135-144) mmol/L Sodium 133 L (136-145) mmol/L POC Potassium 4.6 (3.3-5.0) mmol/L Potassium TNP 4.2 POC Chloride 97 L (101-112) mmol/L Chloride 97 L (98-107) mmol/L Carbon Dioxide 26 (21-32) mmol/L POC Total CO2 38 H (24-31) mmol/L Anion Gap 10 (3-11) POC Anion Gap 4.0 L (16-25) mmol/L POC BUN 34 H (7-18) mg/dl BUN 28 H (6-23) mg/dl Creatinine 0.93 (0.6-1.4) mg/dl POC Creatinine 1.0 (0.6-1.3) mg/dl Est Cr Clr Drug Dosing 55.6 ml/min Est GFR ( Amer) 84.1 ml/min Est GFR (Non-Af Amer) 72.5 ml/min BUN/Creatinine Ratio 30.1 H (10-20) Glucose 118 H (70-99(Fasting)) mg/dl POC Glucose (other) 120 H (70-99) mg/dl Lactate (0.4-2.0) mmol/L Calcium 10.1 (8.6-10.3) mg/dl POC Ioniz Calcium Silvana 1.22 (1.12-1.32) mmol/l Magnesium 1.8 (1.7-2.4) mg/dl Total Bilirubin 0.7 (0.2-1.0) mg/dl AST TNP 20 ALT 27 (7-52) U/L Alkaline Phosphatase 86 (34-104) U/L Ammonia TNP Troponin I High Sens 9.1 (0-20) pg/ml Total Protein 6.9 (6.0-8.3) gm/dl Albumin 3.5 (3.4-5.0) gm/dl Globulin 3.4 (2.5-4.0) gm/dl Albumin/Globulin Ratio 1.0 (0.9-2) SARS-CoV-2, RNA, NAAT (NEGATIVE) 09/09/23 09/09/23 09/09/23 Range/Units 18:17 18:18 20:04 WBC (4.8-10.8) K/ul RBC (4.70-6.10) M/uL Hgb (14.0-18.0) g/dl POC Hgb (14.0-18.0) g/dl Hct (42.0-52.0) % POC Hct (42-52) % MCV (80.0-100.0) fL MCH (25.0-34.0) pg MCHC (32.0-36.0) g/dL RDW Std Deviation (36.4-46.3) fL RDW Coeff of Gato (11.5-14.5) % Plt Count (130-400) K/uL MPV (9.4-12.4) fL Immature Gran % (Auto) % Neut % (Auto) % Lymph % (Auto) % Bertie % (Auto) % Eos % (Auto) % Baso % (Auto) % Neut # (Auto) (1.40-6.50) K/uL Lymph # (Auto) (1.20-3.40) K/uL Bertie # (Auto) (0.11-0.59) K/uL Eos # (Auto) (0.00-0.50) K/uL Baso # (Auto) (0.00-0.20) K/uL Immature Gran # (Auto) (0.01-0.20) K/uL PT INR APTT PTT Ratio VBG pH 7.47 H (7.36-7.41) VBG pCO2 44 (38-50) mmHg VBG pO2 38 mmHg VBG HCO3 32 mmol/L VBG O2 Saturation < 60.0 % VBG Base Excess 7.4 mEq/L POC Sodium (135-144) mmol/L Sodium (136-145) mmol/L POC Potassium (3.3-5.0) mmol/L Potassium POC Chloride (101-112) mmol/L Chloride (98-107) mmol/L Carbon Dioxide (21-32) mmol/L POC Total CO2 (24-31) mmol/L Anion Gap (3-11) POC Anion Gap (16-25) mmol/L POC BUN (7-18) mg/dl BUN (6-23) mg/dl Creatinine (0.6-1.4) mg/dl POC Creatinine (0.6-1.3) mg/dl Est Cr Clr Drug Dosing ml/min Est GFR ( Amer) ml/min Est GFR (Non-Af Amer) ml/min BUN/Creatinine Ratio (10-20) Glucose (70-99(Fasting)) mg/dl POC Glucose (other) (70-99) mg/dl Lactate 2.4 H* (0.4-2.0) mmol/L Calcium (8.6-10.3) mg/dl POC Ioniz Calcium Silvana (1.12-1.32) mmol/l Magnesium (1.7-2.4) mg/dl Total Bilirubin (0.2-1.0) mg/dl AST ALT (7-52) U/L Alkaline Phosphatase (34-104) U/L Ammonia 26.0 Troponin I High Sens (0-20) pg/ml Total Protein (6.0-8.3) gm/dl Albumin (3.4-5.0) gm/dl Globulin (2.5-4.0) gm/dl Albumin/Globulin Ratio (0.9-2) SARS-CoV-2, RNA, NAAT NEGATIVE (NEGATIVE) Administered Medications Discontinued Medications Ceftriaxone Sodium (Rocephin) 2,000 mg in 50 mls @ 100 mls/hr IV NOW STA Stop: 09/09/23 19:37 Last Infusion: 09/09/23 20:25 Dose: Infused Documented By: Admin: 09/09/23 19:54 Dose: 100 mls/hr Documented By: SVITLANA Sodium Chloride (Nss) 500 mls @ 999 mls/hr IV .Q31M ONE Stop: 09/09/23 19:42 Last Infusion: 09/09/23 20:25 Dose: Infused Documented By: Admin: 09/09/23 19:54 Dose: 999 mls/hr Documented By: SVITLANA Ioversol (Optiray 320 125ml) 119 ml IV ONCE ONE Stop: 09/09/23 17:37 Last Admin: 09/09/23 17:36 Dose: 119 ml Documented By: EDK Imaging Data Radiologist's Impression: Chest X-Ray 09/09/23 16:38 XR chest 1V portable HISTORY: 87 years-old Male fatigue, facial droop acute fatigue COMPARISON: Chest radiograph 08/12/2023 TECHNIQUE: Supine AP view of the chest FINDINGS: Cardiac silhouette is enlarged. Mild right hemidiaphragmatic elevation. Bibasilar linear subsegmental opacities. No pneumothorax or large pleural effusion. Limited study secondary to positioning. Degenerative changes of the shoulders and spine. IMPRESSION: 1. Cardiomegaly without pulmonary edema. 2. Chronic right hemidiaphragmatic elevation with bibasilar atelectasis. ACT 112: Negative or not required by law. The above report was generated using voice recognition software. It may contain grammatical, syntax or spelling errors. Electronically signed by: Boogie Burden M.D. 09/09/2023 4:[address] 09/09/23 16:38 CT angio head w con, CT head/brain wo con, CT angio neck with con CLINICAL HISTORY: 87 years-old Male with neuro deficit, acute stroke suspected. Acute stroke like symptoms COMPARISON STUDY: Head CT 08/08/2023 TECHNIQUE: Unenhanced axial CT scan of the brain is performed. Subsequently, following the IV administration of 119 cc of Optiray, CT angiogram of the head and neck was performed from the aortic arch to the skull apex. Images are reviewed in the axial, sagittal, and coronal planes. 3-D MIPS images are created and assessed. IV contrast was administered without complication. All measurements were obtained according to NASCET criteria. A dose lowering technique was utilized adhering to the principles of ALARA. FINDINGS: CT BRAIN: There is no acute intracranial hemorrhage, midline shift, hydrocephalus, intra- axial mass, territorial ischemia or abnormal extra-axial collections. No abnormal intra-axial or extra-axial enhancement. Involutional changes with chronic microvascular skinny disease. Unchanged calcified extra-axial focus adjacent to the right temporal lobe on image 19 series 2. Mastoid air cells and middle ear cavities are clear. No calvarial fracture. Prior bilateral lens repair. Paranasal sinuses are clear. CT ANGIOGRAM OF THE HEAD AND NECK: Severe atherosclerotic plaque in the carotid bulbs. There is severe stenosis at the origin of the left external carotid artery. There is 50% stenosis at the origin of the left ICA. 60% stenosis at the origin of the right ICA. The bilateral anterior and middle cerebral arteries are also patent. origin of the right posterior cerebral artery with high-grade stenosis of the right posterior cerebral artery on image 122 series 5. Areas of additional mild multifocal stenosis of the bilateral posterior cerebral arteries. No aneurysm or dissection. Moderate stenosis at the origin of the vertebral arteries. Degenerative changes of the cervical spine. Lung apices are clear. Unremarkable soft tissues. Subcentimeter hypodense right-sided thyroid nodule. IMPRESSION: 1. No acute intracranial abnormality. 2. Severe atherosclerotic plaque of the carotid bulbs resulting in 60% stenosis of the right ICA origin and 50% stenosis on the left. 3. 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 ACT 112: Negative or not required by law. The above report was generated using voice recognition software. It may contain grammatical, syntax or spelling errors. Electronically signed by: Boogie Burden M.D. 09/09/2023 6:50 PM Head CTA 09/09/23 16:38 CT angio head w con, CT head/brain wo con, CT angio neck with con CLINICAL HISTORY: 87 years-old Male with neuro deficit, acute stroke suspected. Acute stroke like symptoms COMPARISON STUDY: Head CT 08/08/2023 TECHNIQUE: Unenhanced axial CT scan of the brain is performed. Subsequently, following the IV administration of 119 cc of Optiray, CT angiogram of the head and neck was performed from the aortic arch to the skull apex. Images are reviewed in the axial, sagittal, and coronal planes. 3-D MIPS images are created and assessed. IV contrast was administered without complication. All measurements were obtained according to NASCET criteria. A dose lowering technique was utilized adhering to the principles of ALARA. FINDINGS: CT BRAIN: There is no acute intracranial hemorrhage, midline shift, hydrocephalus, intra- axial mass, territorial ischemia or abnormal extra-axial collections. No abnormal intra-axial or extra-axial enhancement. Involutional changes with chronic microvascular skinny disease. Unchanged calcified extra-axial focus adjacent to the right temporal lobe on image 19 series 2. Mastoid air cells and middle ear cavities are clear. No calvarial fracture. Prior bilateral lens repair. Paranasal sinuses are clear. CT ANGIOGRAM OF THE HEAD AND NECK: Severe atherosclerotic plaque in the carotid bulbs. There is severe stenosis at the origin of the left external carotid artery. There is 50% stenosis at the origin of the left ICA. 60% stenosis at the origin of the right ICA. The bilateral anterior and middle cerebral arteries are also patent. origin of the right posterior cerebral artery with high-grade stenosis of the right posterior cerebral artery on image 122 series 5. Areas of additional mild multifocal stenosis of the bilateral posterior cerebral arteries. No aneurysm or dissection. Moderate stenosis at the origin of the vertebral arteries. Degenerative changes of the cervical spine. Lung apices are clear. Unremarkable soft tissues. Subcentimeter hypodense right-sided thyroid nodule. IMPRESSION: 1. No acute intracranial abnormality. 2. Severe atherosclerotic plaque of the carotid bulbs resulting in 60% stenosis of the right ICA origin and 50% stenosis on the left. 3. 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 ACT 112: Negative or not required by law. The above report was generated using voice recognition software. It may contain grammatical, syntax or spelling errors. Electronically signed by: Boogie Burden M.D. 09/09/2023 6:50 PM Neck CTA 09/09/23 16:38 CT angio head w con, CT head/brain wo con, CT angio neck with con CLINICAL HISTORY: 87 years-old Male with neuro deficit, acute stroke suspected. Acute stroke like symptoms COMPARISON STUDY: Head CT 08/08/2023 TECHNIQUE: Unenhanced axial CT scan of the brain is performed. Subsequently, following the IV administration of 119 cc of Optiray, CT angiogram of the head and neck was performed from the aortic arch to the skull apex. Images are reviewed in the axial, sagittal, and coronal planes. 3-D MIPS images are created and assessed. IV contrast was administered without complication. All measurements were obtained according to NASCET criteria. A dose lowering technique was utilized adhering to the principles of ALARA. FINDINGS: CT BRAIN: There is no acute intracranial hemorrhage, midline shift, hydrocephalus, intra- axial mass, territorial ischemia or abnormal extra-axial collections. No abnormal intra-axial or extra-axial enhancement. Involutional changes with chronic microvascular skinny disease. Unchanged calcified extra-axial focus adjacent to the right temporal lobe on image 19 series 2. Mastoid air cells and middle ear cavities are clear. No calvarial fracture. Prior bilateral lens repair. Paranasal sinuses are clear. CT ANGIOGRAM OF THE HEAD AND NECK: Severe atherosclerotic plaque in the carotid bulbs. There is severe stenosis at the origin of the left external carotid artery. There is 50% stenosis at the origin of the left ICA. 60% stenosis at the origin of the right ICA. The bilateral anterior and middle cerebral arteries are also patent. origin of the right posterior cerebral artery with high-grade stenosis of the right posterior cerebral artery on image 122 series 5. Areas of additional mild multifocal stenosis of the bilateral posterior cerebral arteries. No aneurysm or dissection. Moderate stenosis at the origin of the vertebral arteries. Degenerative changes of the cervical spine. Lung apices are clear. Unremarkable soft tissues. Subcentimeter hypodense right-sided thyroid nodule. IMPRESSION: 1. No acute intracranial abnormality. 2. Severe atherosclerotic plaque of the carotid bulbs resulting in 60% stenosis of the right ICA origin and 50% stenosis on the left. 3. 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 ACT 112: Negative or not required by law. The above report was generated using voice recognition software. It may contain grammatical, syntax or spelling errors. Electronically signed by: Boogie Burden M.D. 09/09/2023 6:50 PM Discharge Plan Visit Data Chief Complaint: Stroke/CVA Symptoms ED Provider: Alejandro Morrissey Discharge Problem: Weakness, Fatigue, Stroke-like symptoms Patient Disposition: Being Evaluated by Hospitalist Discharge Instructions Interventions: ED Discharge Assessment Last Done: 09/09/23 21:19
[2023-09-09 17:35] LABS: iSTAT Hemoglobin 13.6 g/dl (14.0-18.0); iSTAT Ionized Calcium 1.22 mmol/l (1.12-1.32); iSTAT Potassium 4.6 mmol/L (3.3-5.0)
[2023-09-09] MEDS ORDERED: OPTIRAY 320 125ml IV ONE (17:36)
[2023-09-09 17:39] LABS: Basophils # (auto) 0.07 K/uL (0.00-0.20); Basophils % (auto) 0.7 %; Eosinophils # (auto) 0.53 K/uL (0.00-0.50); Eosinophils % (auto) 5.1 %; Hematocrit (blood only) 40.1 % (42.0-52.0); Hemoglobin 13.9 g/dl (14.0-18.0); Immature Granulocytes # (auto) 0.07 K/uL (0.01-0.20); Immature Granulocytes % (auto) 0.7 %; Lymphocytes # (auto) 2.33 K/uL (1.20-3.40); Lymphocytes % (auto) 22.4 %; Mean Corpuscular Hemoglobin 29.5 pg (25.0-34.0); Mean Corpuscular Hgb Conc 34.7 g/dL (32.0-36.0); Mean Corpuscular Volume 85.1 fL (80.0-100.0); Mean Platelet Volume 11.5 fL (9.4-12.4); Monocytes # (auto) 1.06 K/uL (0.11-0.59); Monocytes % (auto) 10.2 %; Neutrophils # (auto) 6.36 K/uL (1.40-6.50); Neutrophils % (auto) 60.9 %; Platelet Count 236 K/uL (130-400); RDW Coefficient of Variation 14.2 % (11.5-14.5); RDW Standard Deviation 43.9 fL (36.4-46.3); Red Blood Count 4.71 M/uL (4.70-6.10); White Blood Count 10.42 K/ul (4.8-10.8)
[2023-09-09 17:46] LABS: Alanine Aminotransferase 27 U/L (7-52); Albumin Level 3.5 gm/dl (3.4-5.0); Alkaline Phosphatase 86 U/L (34-104); Anion Gap 10 (3-11); BUN Creatinine Ratio 30.1 (10-20); Bilirubin,Total 0.7 mg/dl (0.2-1.0); Blood Urea Nitrogen 28 mg/dl (6-23); Calcium 10.1 mg/dl (8.6-10.3); Carbon Dioxide 26 mmol/L (21-32); Chloride 97 mmol/L (98-107); Creatinine Clr Calc Pharmacy 55.6 ml/min; Est GFR (African American) 84.1 ml/min; Est GFR (Non-African American) 72.5 ml/min; Globulin 3.4 gm/dl (2.5-4.0); Glucose 118 mg/dl (70-99(Fasting)); Magnesium 1.8 mg/dl (1.7-2.4); Sodium 133 mmol/L (136-145); Total Protein 6.9 gm/dl (6.0-8.3)
[2023-09-09 17:53] LABS: Troponin I High Sensitivity 9.1 pg/ml (0-20)
[2023-09-09 18:30] LABS: Base Excess VBG 7.4 mEq/L; HCO3 VBG 32 mmol/L; Oxygen Saturation VBG < 60.0 %; PCO2 VBG 44 mmHg (38-50); PO2 VBG 38 mmHg; pH VBG 7.47 (7.36-7.41)
[2023-09-09 18:46] LABS: Potassium 4.2 mmol/L (3.5-5.1)
--- NOTE | 2023-09-09 18:53 | CT Scan Report ---
CT angio head w con, CT head/brain wo con, CT angio neck with con CLINICAL HISTORY: 87 years-old Male with neuro deficit, acute stroke suspected. Acute stroke like symptoms COMPARISON STUDY: Head CT 08/08/2023 TECHNIQUE: Unenhanced axial CT scan of the brain is performed. Subsequently, following the IV adminis tration of 119 cc of Optiray, CT angiogram of the head and neck was performed from the aortic arch to the skull apex. Images are reviewed in the axial, sagittal, and coronal planes. 3-D MIPS images are created and assessed. IV contrast was administered without complication. All measurements were obtain ed according to NASCET criteria. A dose lowering technique was utilized adhering to the principles of ALARA. FINDINGS: CT BRAIN: There is no acute intracranial hemorrhage, midline shift, hydrocephalus, intra-axial mass, territoria l ischemia or abnormal extra-axial collections. No abnormal intra-axial or extra-axial enhancement. Involutional changes with chronic microvascular skinny disease. Unchanged calcified extra-axial focus adjacent to the right temporal lobe on image 19 series 2. Mastoid air cells and middle ear cavities are clear. No calvarial fracture. Prior bilateral lens repair. Paranasal sinuses are clear. CT ANGIOGRAM OF THE HEAD AND NECK: Severe atherosclerotic plaque in the carotid bulbs. There is severe stenosis at the origin of the lef t external carotid artery. There is 50% stenosis at the origin of the left ICA. 60% stenosis at the o rigin of the right ICA. The bilateral anterior and middle cerebral arteries are also patent. or igin of the right posterior cerebral artery with high-grade stenosis of the right posterior cerebral artery on image 122 series 5. Areas of additional mild multifocal stenosis of the bilateral posterior cerebral arteries. No aneurysm or dissection. Moderate stenosis at the origin of the vertebral arter ies. Degenerative changes of the cervical spine. Lung apices are clear. Unremarkable soft tissues. Subcent imeter hypodense right-sided thyroid nodule. IMPRESSION: 1. No acute intracranial abnormality. 2. Severe atherosclerotic plaque of the carotid bulbs resulting in 60% stenosis of the right ICA orig in and 50% stenosis on the left. 3. 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 ACT 112: Negative or not required by law. The above report was generated using voice recognition software. It may contain grammatical, syntax o r spelling errors. Electronically signed by: Boogie Burden M.D. 09/09/2023 6:50 PM
[2023-09-09 18:58] LABS: INR 1.1 (0.9-1.1); Partial Thromboplastin Ratio 0.9; Partial Thromboplastin Time 25 Seconds (21-31); Prothrombin Time 11.6 Seconds (9.0-12.0)
[2023-09-09] MEDS ORDERED: cefTRIAXone SODIUM 2,000 MG/50 ML BAG IV STA (19:08)
[2023-09-09] MEDS ORDERED: SODIUM CHLORIDE 0.9% 500 ML IV ONE (19:12)
[2023-09-09 19:43] LABS: Appearance Urine Clear (Clear); Bilirubin Urine Negative (Negative); Blood Urine Negative (Negative); Color Urine Yellow; Glucose Urine UA 2+ (Negative); Ketones Urine Negative (Negative); Leukocyte Esterase Urine Negative (Negative); Nitrite Urine Negative (Negative); Protein Urine Negative (Negative); Specific Gravity Urine 1.041 (1.000-1.030); Urobilinogen Urine Negative (Negative); pH Urine 6.5 (4.5-7.5)
--- NOTE | 2023-09-09 20:17 | History & Physical Report ---
Date of Service September 09, 2023 Assessment & Plan (1) Stroke-like symptoms: Plan: 87yo male presenting with left sided weakness and facial droop that developed this afternoon after a nap. Patient unfortunately presented outside of the window for thrombolytics. CTA of the brain and neck with severe atherosclerotic plaque of the carotid bulbs resulting in 60% stenosis of the right ICA origin and 50% stenosis of the left as well as severe stenosis of the right posterior cerebral artery. Last HgbA1C on 05/18/23 elevated at 8.4. Last lipid panel on 02/20/23 adequately controlled. -Admit to medical with telemetry -NIHSS and Neuro checks per protocol -Check Lipid panel and HgbA1C -Check MRI brain -Check 2D echo with bubble study -Continue ASA 81mg po daily and Atorvastatin 40mg po qHS -Initiate Plavix 75mg po daily for presumed TIA/CVA -Hold antihypertensive agents, Enalapril and Indapamide for now to allow for permissive hypertension -Consider Vascular Surgery evaluation on outpatient basis given degree of stenosis with stroke-like symptoms. (2) Fatigue: Plan: Etiology unclear. Electrolytes are largely normal with exception of low Na at 133. No obvious infection. Possible dehydration with low Na, high SG and BUN. -Gentle IVF - LR at 80mL/hr x 1L -PT/OT evaluation (3) Stage III pressure ulcer of back: Plan: Patient recently started on Augmentin -Continue for recommended course (4) Diabetes mellitus: Plan: Chronic. Patient on Metformin, Semaglutide at home. -Hold home medications -Check HgbA1C -Lantus 5u BID with ISS -Goal blood sugar 110 - 140 (5) BPH (benign prostatic hyperplasia): Plan: Chronic -Continue Flomax -Monitor UOP History of Present Illness Chief Complaint: possible stroke Primary Care Provider: Rich Warren MD Koffi Walker is an 87yo male with history of HTN and DM presenting from home with concern for CVA. Patient was in his usual state of health today around normal when he took a nap. He woke 2-3 hours later and was found to have some left sided weakness involving the arm and the leg as well as a left facial droop. He was drowsy with garbled speech. EMS was called and the patient was brought to [facility]. In the ER he is afebrile, HD stable, NAD ER Course: Ceftriaxone Allergies Allergy/AdvReac Type Severity Reaction Status Date / Time No Known Allergies Allergy Unknown Verified 09/09/23 18:14 Home Medications Medication Instructions Recorded Confirmed Type aspirin 81 mg tablet,delayed 81 mg PO DAILY 12/20/20 09/09/23 History release amoxicillin 875 mg-potassium 1 tab PO BID 14 days #28 tabs 08/31/23 09/09/23 Rx clavulanate 125 mg tablet atorvastatin 40 mg tablet 40 mg PO HS #30 tabs 09/06/23 09/09/23 Rx enalapril maleate 10 mg tablet 10 mg PO DAILY #30 tabs 09/06/23 09/09/23 Rx indapamide 1.25 mg tablet 1.25 mg PO QAM #30 tabs 09/06/23 09/09/23 Rx metformin 1,000 mg tablet 1,000 mg PO BID #60 tabs 09/06/23 09/09/23 Rx semaglutide 7 mg tablet (Rybelsus) 7 mg PO DAILY #30 tabs 09/06/23 09/09/23 Rx tamsulosin 0.4 mg capsule (Flomax) 0.4 mg PO DAILY #30 caps 09/06/23 09/09/23 Rx collagenase clostridium histo. 250 1 applic topical DAILY PRN Wound 09/09/23 09/09/23 History unit/gram topical ointment (Santyl) Care ergocalciferol (vitamin D2) 1,250 50,000 unit PO WK 09/09/23 09/09/23 History mcg (50,000 unit) capsule (Vitamin D2) Past Med/Surg History Medical History (Updated 09/09/23 @ 21:11 by Razia Bartlett DO) Hyperbilirubinemia Rhabdomyolysis DINORAH (acute kidney injury) Choledocholithiasis with acute cholecystitis Cholelithiasis History of acute cholangitis SNHL (sensorineural hearing loss) Hypercholesterolemia Diabetes Hemorrhoids Surgical History S/P ERCP (08/11/23) Endoscopic Retrograde Cholangiopancreatogram - Mika Wilburn DO Laparoscopic Cholecystectomy - Skip Beltrán DO Hx laparoscopic cholecystectomy (08/11/23) Endoscopic Retrograde Cholangiopancreatogram - Mika Wilburn DO Laparoscopic Cholecystectomy - Skip Beltrán DO Hx of cholecystectomy Hx of transurethral resection of prostate History of arthroplasty of knee Hx of hernia repair Hx of appendectomy Family History Mother Diabetes Father Heart disease Denies family history of Ovarian cancer Prostate cancer Myocardial infarction Breast cancer Colorectal cancer Social History Smoking Status: Never smoker Second Hand Exposure: Yes; Hx Alcohol Use: No Hx Substance Use: No Preferred Language: Citizen Of The [place] Communication Ability: Impaired Visual Impairment: No Limitations Hearing Ability: Use of Hearing Aid Membership Solicitor Required: No marital status: / Current Living Situation: Alone current occupational status: retired How many Children do You have: 5 Feels Safe at Home: Yes Childhood Exposure to Second-Hand Smoke: Yes Diet: regular during the past year weight has: remained stable Dental Care, Regularly: Yes Physical Activity Frequency: 1-2 Times per Week Seatbelt Use: always Sunscreen Use: Yes Assistive Devices: Cane Review of Systems Review of Systems: All systems reviewed & are unremarkable except as noted in HPI & below Physical Exam Physical Exam: General: patient somnolent, arousable, oriented x3, speech somewhat garbled Skin: pressure ulcers present on back HEENT: NC/AT, pupils 2mm, reactive bilaterally, EOMI, anicteric sclera, conjunctiva without injection, external ear normal to inspection and nontender, nares patent, moist mucus membranes, dentition intact, no oropharyngeal lesions, neck supple, trachea midline, no LAD, no thyromegaly, no JVD Heart: +S1/S2, regularn with frequent ectopy, no m/r/g Lungs: equal air entry bilaterally, no rales/rhonchi/wheezes Abd: +BS, soft, NT/ND, no masses/organomegaly/ascites Ext: warm, 2+ pulses in UE/LE bilaterally, no clubbing/cyanosis or edema, chronic pain in right shoulder with limited mobility Neuro: somnolent, arousable, speech somewhat garbled, left facial droop, tongue midline, sensation to light touch intact, MS 4/5 in UE/LE bilaterally, no drift Results & Data Results & Data Vital Signs (Past 12 Hours) Vital Signs Temp Pulse Resp BP Pulse Ox O2 Del Method O2 Flow Rate 09/09/23 19:39 79 09/09/23 18:31 74 21 115/80 97 09/09/23 18:30 75 26 H 98 09/09/23 18:01 74 18 106/67 100 09/09/23 18:00 74 25 H 99 09/09/23 17:54 97 Nasal Cannula 2 09/09/23 17:46 120/78 09/09/23 17:16 76 09/09/23 17:00 78 24 94 09/09/23 16:58 71 23 91 09/09/23 16:36 36.8 C 76 19 111/59 L 92 Room Air Laboratory Results Laboratory Results WBC 10.42 K/ul (4.8-10.8) 09/09/23 17:12 RBC 4.71 M/uL (4.70-6.10) 09/09/23 17:12 Hgb 13.9 g/dl (14.0-18.0) L 09/09/23 17:12 POC Hgb 13.6 g/dl (14.0-18.0) L 09/09/23 17:21 Hct 40.1 % (42.0-52.0) L 09/09/23 17:12 POC Hct 40 % (42-52) L 09/09/23 17:21 MCV 85.1 fL (80.0-100.0) 09/09/23 17:12 MCH 29.5 pg (25.0-34.0) 09/09/23 17:12 MCHC 34.7 g/dL (32.0-36.0) 09/09/23 17:12 RDW Std Deviation 43.9 fL (36.4-46.3) 09/09/23 17:12 RDW Coeff of Gato 14.2 % (11.5-14.5) 09/09/23 17:12 Plt Count 236 K/uL (130-400) 09/09/23 17:12 MPV 11.5 fL (9.4-12.4) 09/09/23 17:12 Immature Gran % (Auto) 0.7 % 09/09/23 17:12 Neut % (Auto) 60.9 % 09/09/23 17:12 Lymph % (Auto) 22.4 % 09/09/23 17:12 [place] % (Auto) 10.2 % 09/09/23 17:12 Eos % (Auto) 5.1 % 09/09/23 17:12 Baso % (Auto) 0.7 % 09/09/23 17:12 Neut # (Auto) 6.36 K/uL (1.40-6.50) 09/09/23 17:12 Lymph # (Auto) 2.33 K/uL (1.20-3.40) 09/09/23 17:12 [place] # (Auto) 1.06 K/uL (0.11-0.59) H 09/09/23 17:12 Eos # (Auto) 0.53 K/uL (0.00-0.50) H 09/09/23 17:12 Baso # (Auto) 0.07 K/uL (0.00-0.20) 09/09/23 17:12 Immature Gran # (Auto) 0.07 K/uL (0.01-0.20) 09/09/23 17:12 PT 11.6 Seconds (9.0-12.0) 09/09/23 18:10 INR 1.1 (0.9-1.1) 09/09/23 18:10 APTT 25 Seconds (21-31) 09/09/23 18:10 PTT Ratio 0.9 09/09/23 18:10 VBG pH 7.47 (7.36-7.41) H 09/09/23 18:18 VBG pCO2 44 mmHg (38-50) 09/09/23 18:18 VBG pO2 38 mmHg 09/09/23 18:18 VBG HCO3 32 mmol/L 09/09/23 18:18 VBG O2 Saturation < 60.0 % 09/09/23 18:18 VBG Base Excess 7.4 mEq/L 09/09/23 18:18 POC Sodium 133 mmol/L (135-144) L 09/09/23 17:21 Sodium 133 mmol/L (136-145) L 09/09/23 17:12 POC Potassium 4.6 mmol/L (3.3-5.0) 09/09/23 17:21 Potassium 4.2 mmol/L (3.5-5.1) 09/09/23 18:10 POC Chloride 97 mmol/L (101-112) L 09/09/23 17:21 Chloride 97 mmol/L (98-107) L 09/09/23 17:12 Carbon Dioxide 26 mmol/L (21-32) 09/09/23 17:12 POC Total CO2 38 mmol/L (24-31) H 09/09/23 17:21 Anion Gap 10 (3-11) 09/09/23 17:12 POC Anion Gap 4.0 mmol/L (16-25) L 09/09/23 17:21 POC BUN 34 mg/dl (7-18) H 09/09/23 17:21 BUN 28 mg/dl (6-23) H 09/09/23 17:12 Creatinine 0.93 mg/dl (0.6-1.4) 09/09/23 17:12 POC Creatinine 1.0 mg/dl (0.6-1.3) 09/09/23 17:21 Est Cr Clr Drug Dosing 55.6 ml/min 09/09/23 17:12 Est GFR ( Amer) 84.1 ml/min 09/09/23 17:12 Est GFR (Non-Af Amer) 72.5 ml/min 09/09/23 17:12 BUN/Creatinine Ratio 30.1 (10-20) H 09/09/23 17:12 Glucose 118 mg/dl (70-99(Fasting)) H 09/09/23 17:12 POC Glucose (other) 120 mg/dl (70-99) H 09/09/23 17:21 Lactate 1.5 mmol/L (0.4-2.0) 09/09/23 20:19 Calcium 10.1 mg/dl (8.6-10.3) 09/09/23 17:12 POC Ioniz Calcium Sil[place]ana 1.22 mmol/l (1.12-1.32) 09/09/23 17:21 Magnesium 1.8 mg/dl (1.7-2.4) 09/09/23 17:12 Total Bilirubin 0.7 mg/dl (0.2-1.0) 09/09/23 17:12 AST 20 U/L (13-39) 09/09/23 18:10 ALT 27 U/L (7-52) 09/09/23 17:12 Alkaline Phosphatase 86 U/L (34-104) 09/09/23 17:12 Ammonia 26.0 umol/L (18-72) 09/09/23 18:17 Troponin I High Sens 9.1 pg/ml (0-20) 09/09/23 17:12 Total Protein 6.9 gm/dl (6.0-8.3) 09/09/23 17:12 Albumin 3.5 gm/dl (3.4-5.0) 09/09/23 17:12 Globulin 3.4 gm/dl (2.5-4.0) 09/09/23 17:12 Albumin/Globulin Ratio 1.0 (0.9-2) 09/09/23 17:12 Urine Color Yellow 09/09/23 Unknown Urine Appearance Clear (Clear) 09/09/23 Unknown Urine pH 6.5 (4.5-7.5) 09/09/23 Unknown Ur Specific [place] 1.041 (1.000-1.030) H 09/09/23 Unknown Urine Protein Negative (Negative) 09/09/23 Unknown Urine Glucose (UA) 2+ (Negative) H 09/09/23 Unknown Urine Ketones Negative (Negative) 09/09/23 Unknown Urine Blood Negative (Negative) 09/09/23 Unknown Urine Nitrite Negative (Negative) 09/09/23 Unknown Urine Bilirubin Negative (Negative) 09/09/23 Unknown Urine Urobilinogen Negative (Negative) 09/09/23 Unknown Ur Leukocyte Esterase Negative (Negative) 09/09/23 Unknown SARS-CoV-2, RNA, NAAT NEGATIVE (NEGATIVE) 09/09/23 20:04 Impressions Chest X-Ray 09/09/23 16:38 XR chest 1V portable HISTORY: 87 years-old Male fatigue, facial droop acute fatigue COMPARISON: Chest radiograph 08/12/2023 TECHNIQUE: Supine AP view of the chest FINDINGS: Cardiac silhouette is enlarged. Mild right hemidiaphragmatic elevation. Bibasilar linear subsegmental opacities. No pneumothorax or large pleural effusion. Limited study secondary to positioning. Degenerative changes of the shoulders and spine. IMPRESSION: 1. Cardiomegaly without pulmonary edema. 2. Chronic right hemidiaphragmatic elevation with bibasilar atelectasis. ACT 112: Negative or not required by law. The above report was generated using voice recognition software. It may contain grammatical, syntax or spelling errors. Electronically signed by: Boogie Burden M.D. 09/09/2023 4:[address] 09/09/23 16:38 CT angio head w con, CT head/brain wo con, CT angio neck with con CLINICAL HISTORY: 87 years-old Male with neuro deficit, acute stroke suspected. Acute stroke like symptoms COMPARISON STUDY: Head CT 08/08/2023 TECHNIQUE: Unenhanced axial CT scan of the brain is performed. Subsequently, following the IV administration of 119 cc of Optiray, CT angiogram of the head and neck was performed from the aortic arch to the skull apex. Images are reviewed in the axial, sagittal, and coronal planes. 3-D MIPS images are created and assessed. IV contrast was administered without complication. All measurements were obtained according to NASCET criteria. A dose lowering technique was utilized adhering to the principles of ALARA. FINDINGS: CT BRAIN: There is no acute intracranial hemorrhage, midline shift, hydrocephalus, intra- axial mass, territorial ischemia or abnormal extra-axial collections. No abnormal intra-axial or extra-axial enhancement. Involutional changes with chronic microvascular skinny disease. Unchanged calcified extra-axial focus adjacent to the right temporal lobe on image 19 series 2. Mastoid air cells and middle ear cavities are clear. No calvarial fracture. Prior bilateral lens repair. Paranasal sinuses are clear. CT ANGIOGRAM OF THE HEAD AND NECK: Severe atherosclerotic plaque in the carotid bulbs. There is severe stenosis at the origin of the left external carotid artery. There is 50% stenosis at the origin of the left ICA. 60% stenosis at the origin of the right ICA. The bilateral anterior and middle cerebral arteries are also patent. origin of the right posterior cerebral artery with high-grade stenosis of the right posterior cerebral artery on image 122 series 5. Areas of additional mild multifocal stenosis of the bilateral posterior cerebral arteries. No aneurysm or dissection. Moderate stenosis at the origin of the vertebral arteries. Degenerative changes of the cervical spine. Lung apices are clear. Unremarkable soft tissues. Subcentimeter hypodense right-sided thyroid nodule. IMPRESSION: 1. No acute intracranial abnormality. 2. Severe atherosclerotic plaque of the carotid bulbs resulting in 60% stenosis of the right ICA origin and 50% stenosis on the left. 3. 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 ACT 112: Negative or not required by law. The above report was generated using voice recognition software. It may contain grammatical, syntax or spelling errors. Electronically signed by: Boogie Burden M.D. 09/09/2023 6:50 PM Head CTA 09/09/23 16:38 CT angio head w con, CT head/brain wo con, CT angio neck with con CLINICAL HISTORY: 87 years-old Male with neuro deficit, acute stroke suspected. Acute stroke like symptoms COMPARISON STUDY: Head CT 08/08/2023 TECHNIQUE: Unenhanced axial CT scan of the brain is performed. Subsequently, following the IV administration of 119 cc of Optiray, CT angiogram of the head and neck was performed from the aortic arch to the skull apex. Images are reviewed in the axial, sagittal, and coronal planes. 3-D MIPS images are created and assessed. IV contrast was administered without complication. All measurements were obtained according to NASCET criteria. A dose lowering technique was utilized adhering to the principles of ALARA. FINDINGS: CT BRAIN: There is no acute intracranial hemorrhage, midline shift, hydrocephalus, intra- axial mass, territorial ischemia or abnormal extra-axial collections. No abnormal intra-axial or extra-axial enhancement. Involutional changes with chronic microvascular skinny disease. Unchanged calcified extra-axial focus adjacent to the right temporal lobe on image 19 series 2. Mastoid air cells and middle ear cavities are clear. No calvarial fracture. Prior bilateral lens repair. Paranasal sinuses are clear. CT ANGIOGRAM OF THE HEAD AND NECK: Severe atherosclerotic plaque in the carotid bulbs. There is severe stenosis at the origin of the left external carotid artery. There is 50% stenosis at the origin of the left ICA. 60% stenosis at the origin of the right ICA. The bilateral anterior and middle cerebral arteries are also patent. origin of the right posterior cerebral artery with high-grade stenosis of the right posterior cerebral artery on image 122 series 5. Areas of additional mild multifocal stenosis of the bilateral posterior cerebral arteries. No aneurysm or dissection. Moderate stenosis at the origin of the vertebral arteries. Degenerative changes of the cervical spine. Lung apices are clear. Unremarkable soft tissues. Subcentimeter hypodense right-sided thyroid nodule. IMPRESSION: 1. No acute intracranial abnormality. 2. Severe atherosclerotic plaque of the carotid bulbs resulting in 60% stenosis of the right ICA origin and 50% stenosis on the left. 3. 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 ACT 112: Negative or not required by law. The above report was generated using voice recognition software. It may contain grammatical, syntax or spelling errors. Electronically signed by: Boogie Burden M.D. 09/09/2023 6:50 PM Neck CTA 09/09/23 16:38 CT angio head w con, CT head/brain wo con, CT angio neck with con CLINICAL HISTORY: 87 years-old Male with neuro deficit, acute stroke suspected. Acute stroke like symptoms COMPARISON STUDY: Head CT 08/08/2023 TECHNIQUE: Unenhanced axial CT scan of the brain is performed. Subsequently, following the IV administration of 119 cc of Optiray, CT angiogram of the head and neck was performed from the aortic arch to the skull apex. Images are reviewed in the axial, sagittal, and coronal planes. 3-D MIPS images are created and assessed. IV contrast was administered without complication. All measurements were obtained according to NASCET criteria. A dose lowering technique was utilized adhering to the principles of ALARA. FINDINGS: CT BRAIN: There is no acute intracranial hemorrhage, midline shift, hydrocephalus, intra- axial mass, territorial ischemia or abnormal extra-axial collections. No abnormal intra-axial or extra-axial enhancement. Involutional changes with chronic microvascular skinny disease. Unchanged calcified extra-axial focus adjacent to the right temporal lobe on image 19 series 2. Mastoid air cells and middle ear cavities are clear. No calvarial fracture. Prior bilateral lens repair. Paranasal sinuses are clear. CT ANGIOGRAM OF THE HEAD AND NECK: Severe atherosclerotic plaque in the carotid bulbs. There is severe stenosis at the origin of the left external carotid artery. There is 50% stenosis at the origin of the left ICA. 60% stenosis at the origin of the right ICA. The bilateral anterior and middle cerebral arteries are also patent. origin of the right posterior cerebral artery with high-grade stenosis of the right posterior cerebral artery on image 122 series 5. Areas of additional mild multifocal stenosis of the bilateral posterior cerebral arteries. No aneurysm or dissection. Moderate stenosis at the origin of the vertebral arteries. Degenerative changes of the cervical spine. Lung apices are clear. Unremarkable soft tissues. Subcentimeter hypodense right-sided thyroid nodule. IMPRESSION: 1. No acute intracranial abnormality. 2. Severe atherosclerotic plaque of the carotid bulbs resulting in 60% stenosis of the right ICA origin and 50% stenosis on the left. 3. 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 ACT 112: Negative or not required by law. The above report was generated using voice recognition software. It may contain grammatical, syntax or spelling errors. Electronically signed by: Boogie Burden M.D. 09/09/2023 6:50 PM ECG Additional Comments: EKG with SR at 75bpm, RBBB, TI=361, JNL=277, NZd=917, no acute ischemic changes, RBBB present PG Care Time/CCT Total # of Minutes Spent Total Time Spent with Patient: Total time spent is greater than 50% in coordination of care (as documented) at patient's floor/unit and/or counseling patient: Coding Level of Care Code 46786 INT INP/OBS CARE 2/55MIN Diagnoses Stroke-like symptoms R29.90 Fatigue R53.83 Stage III pressure ulcer of back L89.103 Diabetes mellitus E11.9 BPH (benign prostatic hyperplasia) N40.0
[2023-09-10] MEDS ORDERED: LACTATED RINGER'S 1,000 ML IV SCH (01:18)
[2023-09-10] MEDS ORDERED: GLUCOSE 10 TAB/TUBE PO PRN (01:18)
[2023-09-10] MEDS ORDERED: COLLAGENASE OINT 30 GM TUBE TOP PRN (01:18)
[2023-09-10] MEDS ORDERED: GLUCOSE 40% GEL 15 GM TUBE PO PRN (01:18)
[2023-09-10] MEDS ORDERED: ONDANSETRON INJ 2 MG/ML 2 ML VIAL IV PRN (01:18)
[2023-09-10] MEDS ORDERED: GLUCAGON FOR INJ 1 MG VIAL SQ PRN (01:18)
[2023-09-10] MEDS ORDERED: DEXTROSE 50% 50 ML SYRINGE IV PRN (01:18)
[2023-09-10] MEDS ORDERED: CARBOHYDRATES FOR HYPOGLYCEMIA PO PRN (01:18)
[2023-09-10] MEDS ORDERED: PHARMACIST DISCHARGE MED REC CONSULT PRN (01:18)
[2023-09-10] MEDS ORDERED: CLOPIDOGREL BISULFATE 75 MG TAB PO ONE (01:45)
[2023-09-10] MEDS: LANTUS PER UNIT CHARGE SQ SCH ×3 (02:00→22:26)
[2023-09-10] MEDS: AMOXICILLIN/CLAVULANATE 875 MG TAB PO SCH ×2 (02:00→09:16)
[2023-09-10] MEDS: ATORVASTATIN 40 MG TAB PO SCH ×2 (02:00→22:28)
[2023-09-10 04:16] LABS: Basophils # (auto) 0.07 K/uL (0.00-0.20); Basophils % (auto) 0.6 %; Eosinophils # (auto) 0.45 K/uL (0.00-0.50); Eosinophils % (auto) 4.1 %; Hematocrit (blood only) 40.1 % (42.0-52.0); Hemoglobin 13.9 g/dl (14.0-18.0); Immature Granulocytes # (auto) 0.09 K/uL (0.01-0.20); Immature Granulocytes % (auto) 0.8 %; Lymphocytes # (auto) 2.02 K/uL (1.20-3.40); Lymphocytes % (auto) 18.3 %; Mean Corpuscular Hemoglobin 29.5 pg (25.0-34.0); Mean Corpuscular Hgb Conc 34.7 g/dL (32.0-36.0); Mean Corpuscular Volume 85.1 fL (80.0-100.0); Mean Platelet Volume 10.9 fL (9.4-12.4); Monocytes # (auto) 1.08 K/uL (0.11-0.59); Monocytes % (auto) 9.8 %; Neutrophils % (auto) 66.4 %; Platelet Count 223 K/uL (130-400); RDW Standard Deviation 43.6 fL (36.4-46.3); Red Blood Count 4.71 M/uL (4.70-6.10); White Blood Count 11.01 K/ul (4.8-10.8)
[2023-09-10 04:30] LABS: BUN Creatinine Ratio 27.2 (10-20); Calcium 9.6 mg/dl (8.6-10.3); Creatinine Clr Calc Pharmacy 63.8 ml/min; Est GFR (African American) 91.3 ml/min; Est GFR (Non-African American) 78.8 ml/min; Potassium 3.9 mmol/L (3.5-5.1)
[2023-09-10] MEDS ORDERED: INSULIN ASPART PER UNIT CHARGE SC SCH (06:00)
[2023-09-10 07:21] LABS: Estimated Average Glucose 171 mg/dl; Hemoglobin A1C 7.6 % (4.5-5.6)
[2023-09-10] MEDS ORDERED: INFLUENZA VACCINE HIGH-DOSE (HD-IIV4) PF 65+ 0.7mL SYR IM ONE (08:12)
--- NOTE | 2023-09-10 08:51 | Hospitalist Progress Note ---
Date of Service September 10, 2023 Assessment & Plan (1) Stroke-like symptoms: Plan: CT and CTA are negative for acute findings. 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 Home medications include aspirin 81 mg p.o. daily Echocardiogram completed. Report is pending Continue to hold outpatient antihypertensives to allow for permissive hypertension. Patient's blood pressure currently is 137/75 Due to the new findings of lacunar infarct, will consult neurology. Dr. Moncada aware and will see patient Continue with stroke precautions (2) Fatigue: Plan: Most likely multifactorial PT/OT consult evaluation for acute CVA as well as complaints of fatigue (3) Weakness: Plan: Most likely secondary to acute CVA as well as advanced age. PT/OT consults Continue with antibiotics for stage III pressure ulcer of the back Treat ongoing infections. WBC trending downward with current value of 11.01 K per UL (4) Stage III pressure ulcer of back: Plan: Wound care consult on Monday when they return For now, continue Santyl applied to the wound daily Patient is currently on Augmentin as prescribed by outpatient wound clinic Review of notes indicated's that the ulcer has been worsening and appeared worse on 09/05/2023 with the development of an odor Due to patient's increased weakness and fatigue as well as leukocytosis will discontinue Augmentin 875 ng PO BID and place patient on cefepime and vancomycin IV No evidence of decreased renal function but follow labs daily Check CT of the back to rule out osteomyelitis Rotate patient every 2 hours to offload pressure to that site (5) Wound, open, arm, forearm: Plan: Antibiotics as above for sacral wound (6) Vitamin D deficiency: Plan: Vitamin D levels were 23 ng/mL 04/03/2023 and 23.8 ng/mL 08/01/2022 (7) Vitamin B12 deficiency: Plan: 583 pg/ml 02/20/2023 (180-914) Outpatient management (8) Sleep apnea: Plan: This diagnosis is added to Mr. Munson's profile due to symptoms and body build. He reported not to have further evaluation and is currently not on treatment with CPAP or BiPAP Plan Neurology consult for acute lacunar infarct of the right thalamus PT/OT evaluation and treatment CT of the spine to rule out osteomyelitis from unstageable ulcer Discontinue Augmentin p.o. and add cefepime and vancomycin as wound is now malordorous Admission and Anticipated Discharge Date Admission Date: September 09, 2023 Subjective Attending: Dr. Knight 87-year-old male that was admitted yesterday for left-sided weakness and facial droop that developed over the afternoon. Patient presented outside the window of thrombolytics. CTA of the brain and neck with severe atherosclerotic plaque of the carotid bulbs resulting in 60% stenosis of the right ICA origin and 50% stenosis of the left as well as severe stenosis of the right posterior cerebral artery. MRI of the brain is pending. EKG revealed sinus rhythm with frequent and consecutive PVCs but no evidence of atrial fibrillation or atrial flutter. Ventricular rate was 75 bpm. Patient was empirically started on aspirin 81 mg p.o. daily as well as atorvastatin 40 mg p.o. nightly and Plavix 75 mg p.o. daily for presumed TIA/CVA. Enalapril and indapamide were held for permissive hypertension. Should also be noted that the patient does have diabetes mellitus. Hemoglobin A1c is 7.6%. Patient is noted to have a stage III pressure ulcer of his back and was recently started on Augmentin as an outpatient. Mr. Munson was seen and examined in room C11 8 this morning. He was slow to awaken but eventually did wake up and was alert and oriented x 3. He answers all questions appropriately. Patient denies any headache or new neurological changes. He denies any pain. He has no other acute complaints. MRI today with acute to subacute lacunar infarct in the right thalamus. Review of Systems 2 Review of Systems: A total of 10 systems was reviewed and is negative other than as listed in the HPI Physical Exam 2 Physical Exam: GENERAL : No acute distress EYES: No icterus, gaze conjugate NOSE: No evidence of epistaxis MOUTH: No lesions or candidiasis NECK: Supple LUNGS: CTA B/L, no wheezes, rales or rhonchi HEART: Regular, rate controlled ABDOMEN: Soft, NT, ND, BS Present EXTREMITIES: No LE edema, pedal pulses intact NEURO: A&OX3. No pronator drift. Strength equal and appropriate bilaterally. Toes downgoing bilaterally. Patient drowsy but no slurred speech. Gait and Romberg deferred. Limited use of right arm due to shoulder injury. This does not seem to be related to strokelike symptoms as patient reports them as being chronic. Results & Data Results & Data Vital Signs (Past 12 Hours) Vital Signs Temp Pulse Pulse Resp BP BP Pulse Ox 09/10/23 08:04 36.8 C 75 24 137/75 97 09/10/23 07:30 71 24 96 09/10/23 07:29 74 09/10/23 07:00 75 20 98 09/10/23 06:30 78 20 96 09/10/23 06:02 82 18 95 09/10/23 06:02 137/75 09/10/23 06:00 86 30 H 96 09/10/23 04:07 84 16 148/70 H 96 09/10/23 00:24 77 14 104/58 L 94 09/09/23 23:33 77 O2 Del Method O2 Flow Rate 09/10/23 08:04 Room Air 09/10/23 07:30 09/10/23 07:29 09/10/23 07:00 09/10/23 06:30 09/10/23 06:02 09/10/23 06:02 09/10/23 06:00 09/10/23 04:07 Room Air 09/10/23 00:24 Nasal Cannula 2 09/09/23 23:33 Laboratory Results Abnormal lab results 09/09/23 09/09/23 09/09/23 Range/Units 17:12 17:21 18:18 WBC (4.8-10.8) K/ul Hgb 13.9 L (14.0-18.0) g/dl POC Hgb 13.6 L (14.0-18.0) g/dl Hct 40.1 L (42.0-52.0) % POC Hct 40 L (42-52) % Neut # (Auto) (1.40-6.50) K/uL [place] # (Auto) 1.06 H (0.11-0.59) K/uL Eos # (Auto) 0.53 H (0.00-0.50) K/uL VBG pH 7.47 H (7.36-7.41) POC Sodium 133 L (135-144) mmol/L Sodium 133 L (136-145) mmol/L POC Chloride 97 L (101-112) mmol/L Chloride 97 L (98-107) mmol/L POC Total CO2 38 H (24-31) mmol/L POC Anion Gap 4.0 L (16-25) mmol/L POC BUN 34 H (7-18) mg/dl BUN 28 H (6-23) mg/dl BUN/Creatinine Ratio 30.1 H (10-20) Glucose 118 H (70-99(Fasting)) mg/dl POC Glucose (70-99) mg/dl POC Glucose (other) 120 H (70-99) mg/dl Hemoglobin A1c (4.5-5.6) % Lactate 2.4 H* (0.4-2.0) mmol/L Ur Specific [place] (1.000-1.030) Urine Glucose (UA) (Negative) 09/09/23 09/10/23 09/10/23 Range/Units Unknown 02:08 03:42 WBC 11.01 H (4.8-10.8) K/ul Hgb 13.9 L (14.0-18.0) g/dl POC Hgb (14.0-18.0) g/dl Hct 40.1 L (42.0-52.0) % POC Hct (42-52) % Neut # (Auto) 7.30 H (1.40-6.50) K/uL [place]gard # (Auto) 1.08 H (0.11-0.59) K/uL Eos # (Auto) (0.00-0.50) K/uL VBG pH (7.36-7.41) POC Sodium (135-144) mmol/L Sodium 134 L (136-145) mmol/L POC Chloride (101-112) mmol/L Chloride (98-107) mmol/L POC Total CO2 (24-31) mmol/L POC Anion Gap (16-25) mmol/L POC BUN (7-18) mg/dl BUN (6-23) mg/dl BUN/Creatinine Ratio 27.2 H (10-20) Glucose 118 H (70-99(Fasting)) mg/dl POC Glucose 111 H (70-99) mg/dl POC Glucose (other) (70-99) mg/dl Hemoglobin A1c 7.6 H (4.5-5.6) % Lactate (0.4-2.0) mmol/L Ur Specific [place] 1.041 H (1.000-1.030) Urine Glucose (UA) 2+ H (Negative) 09/10/23 Range/Units 07:44 WBC (4.8-10.8) K/ul Hgb (14.0-18.0) g/dl POC Hgb (14.0-18.0) g/dl Hct (42.0-52.0) % POC Hct (42-52) % Neut # (Auto) (1.40-6.50) K/uL [place]gard # (Auto) (0.11-0.59) K/uL Eos # (Auto) (0.00-0.50) K/uL VBG pH (7.36-7.41) POC Sodium (135-144) mmol/L Sodium (136-145) mmol/L POC Chloride (101-112) mmol/L Chloride (98-107) mmol/L POC Total CO2 (24-31) mmol/L POC Anion Gap (16-25) mmol/L POC BUN (7-18) mg/dl BUN (6-23) mg/dl BUN/Creatinine Ratio (10-20) Glucose (70-99(Fasting)) mg/dl POC Glucose 106 H (70-99) mg/dl POC Glucose (other) (70-99) mg/dl Hemoglobin A1c (4.5-5.6) % Lactate (0.4-2.0) mmol/L Ur Specific [place] (1.000-1.030) Urine Glucose (UA) (Negative) 09/10/23 03:42 09/10/23 03:42 Diagnostic Findings Chest X-Ray 09/09/23 16:38 XR chest 1V portable HISTORY: 87 years-old Male fatigue, facial droop acute fatigue COMPARISON: Chest radiograph 08/12/2023 TECHNIQUE: Supine AP view of the chest FINDINGS: Cardiac silhouette is enlarged. Mild right hemidiaphragmatic elevation. Bibasilar linear subsegmental opacities. No pneumothorax or large pleural effusion. Limited study secondary to positioning. Degenerative changes of the shoulders and spine. IMPRESSION: 1. Cardiomegaly without pulmonary edema. 2. Chronic right hemidiaphragmatic elevation with bibasilar atelectasis. ACT 112: Negative or not required by law. The above report was generated using voice recognition software. It may contain grammatical, syntax or spelling errors. Electronically signed by: Boogie Burden M.D. 09/09/2023 4:[address] 09/09/23 16:38 CT angio head w con, CT head/brain wo con, CT angio neck with con CLINICAL HISTORY: 87 years-old Male with neuro deficit, acute stroke suspected. Acute stroke like symptoms COMPARISON STUDY: Head CT 08/08/2023 TECHNIQUE: Unenhanced axial CT scan of the brain is performed. Subsequently, following the IV administration of 119 cc of Optiray, CT angiogram of the head and neck was performed from the aortic arch to the skull apex. Images are reviewed in the axial, sagittal, and coronal planes. 3-D MIPS images are created and assessed. IV contrast was administered without complication. All measurements were obtained according to NASCET criteria. A dose lowering technique was utilized adhering to the principles of ALARA. FINDINGS: CT BRAIN: There is no acute intracranial hemorrhage, midline shift, hydrocephalus, intra- axial mass, territorial ischemia or abnormal extra-axial collections. No abnormal intra-axial or extra-axial enhancement. Involutional changes with chronic microvascular skinny disease. Unchanged calcified extra-axial focus adjacent to the right temporal lobe on image 19 series 2. Mastoid air cells and middle ear cavities are clear. No calvarial fracture. Prior bilateral lens repair. Paranasal sinuses are clear. CT ANGIOGRAM OF THE HEAD AND NECK: Severe atherosclerotic plaque in the carotid bulbs. There is severe stenosis at the origin of the left external carotid artery. There is 50% stenosis at the origin of the left ICA. 60% stenosis at the origin of the right ICA. The bilateral anterior and middle cerebral arteries are also patent. origin of the right posterior cerebral artery with high-grade stenosis of the right posterior cerebral artery on image 122 series 5. Areas of additional mild multifocal stenosis of the bilateral posterior cerebral arteries. No aneurysm or dissection. Moderate stenosis at the origin of the vertebral arteries. Degenerative changes of the cervical spine. Lung apices are clear. Unremarkable soft tissues. Subcentimeter hypodense right-sided thyroid nodule. IMPRESSION: 1. No acute intracranial abnormality. 2. Severe atherosclerotic plaque of the carotid bulbs resulting in 60% stenosis of the right ICA origin and 50% stenosis on the left. 3. 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 ACT 112: Negative or not required by law. The above report was generated using voice recognition software. It may contain grammatical, syntax or spelling errors. Electronically signed by: Boogie Burden M.D. 09/09/2023 6:50 PM Head CTA 09/09/23 16:38 CT angio head w con, CT head/brain wo con, CT angio neck with con CLINICAL HISTORY: 87 years-old Male with neuro deficit, acute stroke suspected. Acute stroke like symptoms COMPARISON STUDY: Head CT 08/08/2023 TECHNIQUE: Unenhanced axial CT scan of the brain is performed. Subsequently, following the IV administration of 119 cc of Optiray, CT angiogram of the head and neck was performed from the aortic arch to the skull apex. Images are reviewed in the axial, sagittal, and coronal planes. 3-D MIPS images are created and assessed. IV contrast was administered without complication. All measurements were obtained according to NASCET criteria. A dose lowering technique was utilized adhering to the principles of ALARA. FINDINGS: CT BRAIN: There is no acute intracranial hemorrhage, midline shift, hydrocephalus, intra- axial mass, territorial ischemia or abnormal extra-axial collections. No abnormal intra-axial or extra-axial enhancement. Involutional changes with chronic microvascular skinny disease. Unchanged calcified extra-axial focus adjacent to the right temporal lobe on image 19 series 2. Mastoid air cells and middle ear cavities are clear. No calvarial fracture. Prior bilateral lens repair. Paranasal sinuses are clear. CT ANGIOGRAM OF THE HEAD AND NECK: Severe atherosclerotic plaque in the carotid bulbs. There is severe stenosis at the origin of the left external carotid artery. There is 50% stenosis at the origin of the left ICA. 60% stenosis at the origin of the right ICA. The bilateral anterior and middle cerebral arteries are also patent. origin of the right posterior cerebral artery with high-grade stenosis of the right posterior cerebral artery on image 122 series 5. Areas of additional mild multifocal stenosis of the bilateral posterior cerebral arteries. No aneurysm or dissection. Moderate stenosis at the origin of the vertebral arteries. Degenerative changes of the cervical spine. Lung apices are clear. Unremarkable soft tissues. Subcentimeter hypodense right-sided thyroid nodule. IMPRESSION: 1. No acute intracranial abnormality. 2. Severe atherosclerotic plaque of the carotid bulbs resulting in 60% stenosis of the right ICA origin and 50% stenosis on the left. 3. 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 ACT 112: Negative or not required by law. The above report was generated using voice recognition software. It may contain grammatical, syntax or spelling errors. Electronically signed by: Boogie Burden M.D. 09/09/2023 6:50 PM Neck CTA 09/09/23 16:38 CT angio head w con, CT head/brain wo con, CT angio neck with con CLINICAL HISTORY: 87 years-old Male with neuro deficit, acute stroke suspected. Acute stroke like symptoms COMPARISON STUDY: Head CT 08/08/2023 TECHNIQUE: Unenhanced axial CT scan of the brain is performed. Subsequently, following the IV administration of 119 cc of Optiray, CT angiogram of the head and neck was performed from the aortic arch to the skull apex. Images are reviewed in the axial, sagittal, and coronal planes. 3-D MIPS images are created and assessed. IV contrast was administered without complication. All measurements were obtained according to NASCET criteria. A dose lowering technique was utilized adhering to the principles of ALARA. FINDINGS: CT BRAIN: There is no acute intracranial hemorrhage, midline shift, hydrocephalus, intra- axial mass, territorial ischemia or abnormal extra-axial collections. No abnormal intra-axial or extra-axial enhancement. Involutional changes with chronic microvascular skinny disease. Unchanged calcified extra-axial focus adjacent to the right temporal lobe on image 19 series 2. Mastoid air cells and middle ear cavities are clear. No calvarial fracture. Prior bilateral lens repair. Paranasal sinuses are clear. CT ANGIOGRAM OF THE HEAD AND NECK: Severe atherosclerotic plaque in the carotid bulbs. There is severe stenosis at the origin of the left external carotid artery. There is 50% stenosis at the origin of the left ICA. 60% stenosis at the origin of the right ICA. The bilateral anterior and middle cerebral arteries are also patent. origin of the right posterior cerebral artery with high-grade stenosis of the right posterior cerebral artery on image 122 series 5. Areas of additional mild multifocal stenosis of the bilateral posterior cerebral arteries. No aneurysm or dissection. Moderate stenosis at the origin of the vertebral arteries. Degenerative changes of the cervical spine. Lung apices are clear. Unremarkable soft tissues. Subcentimeter hypodense right-sided thyroid nodule. IMPRESSION: 1. No acute intracranial abnormality. 2. Severe atherosclerotic plaque of the carotid bulbs resulting in 60% stenosis of the right ICA origin and 50% stenosis on the left. 3. 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 ACT 112: Negative or not required by law. The above report was generated using voice recognition software. It may contain grammatical, syntax or spelling errors. Electronically signed by: Boogie Burden M.D. 09/09/2023 6:50 PM MRI OF THE BRAIN COMBO 09/10/2023 CLINICAL HISTORY: Strokelike symptoms. Left upper and lower kidney weakness. Difficulty with speech. COMPARISON STUDY: CT of the brain dated 09/09/2023. MRI of the brain dated 09/09/2008. TECHNIQUE: MRI of the brain was performed utilizing various T1 and T2-weighted sequences in the axial, sagittal, and coronal planes. Contrast-enhanced sequences were acquired following the administration of 8.6 cc of Gadavist. FINDINGS: Brain parenchyma: There is an approximately 2 cm focus of restricted diffusion centered in the superior right thalamus consistent with an acute to subacute lacunar infarct. No additional foci of restricted diffusion are identified. There is no hemorrhage or mass effect. There is age related involutional change noting moderate subcortical and periventricular microangiopathic disease. No enhancing mass lesion is identified on the postcontrast images. No extra-axial fluid collection is seen. The cerebellar tonsils are normal in configuration. Ventricles, sulci, and cisterns: Prominent secondary to positional change. Pituitary and sella: Unremarkable. Intracranial vasculature: Normal flow voids are maintained at the skull base. Orbits: The bony orbits are grossly intact. Orbital contents are normal in appearance noting bilateral ocular lens implants. Sinuses and mastoids: There is trace left mastoid effusion. The right mastoid air cells and the paranasal sinuses are clear. Calvarium: Unremarkable. Cervical cord: Partially visualized cervical spinal cord is normal in morphology and signal intensity. IMPRESSION: 1. Acute to subacute lacunar infarct centered in the right thalamus as above. 2. No additional foci of acute ischemia are identified. 3. There is no hemorrhage or mass effect. ACT 112: Negative or not required by law. Electronically signed by: Dioni Berrios M.D. 09/10/2023 12:10 PM ECG Additional Comments: PG Care Time/CCT Total # of Minutes Spent Total Time Spent with Patient: Total time spent is greater than 50% in coordination of care (as documented) at patient's floor/unit and/or counseling patient: Coding Level of Care Code 20072 SUB INP/OBS CARE 3/50MIN Diagnoses Stroke-like symptoms R29.90 Fatigue R53.83 Weakness R53.1 Stage III pressure ulcer of back L89.103 Wound, open, arm, forearm S51.809A Vitamin D deficiency E55.9 Vitamin B12 deficiency E53.8 Sleep apnea G47.30
--- NOTE | 2023-09-10 09:12 | Electrocardiogram Report ---
Test Reason : Blood Pressure : / mmHG Vent. Rate : 075 BPM Atrial Rate : 075 BPM P-R Int : 170 ms QRS Dur : 132 ms QT Int : 396 ms P-R-T Axes : 040 -13 -09 degrees QTc Int : 442 ms Poor data quality, interpretation may be adversely affected Sinus rhythm Right bundle branch block Possible Old Inferior infarct (cited on or before 09-SEP-2023) Abnormal ECG When compared with ECG of 08-AUG-2023 16:15, Vent. rate has decreased BY 43 BPM Confirmed by Delio Garcia ([id number]) on 09/10/2023 9:12:41 AM Referred By: REFERRED SELF Confirmed By:Delio Garcia
[2023-09-10] MEDS: TAMSULOSIN HCL 0.4 MG CAP PO SCH (09:16)
[2023-09-10] MEDS: ASPIRIN 81 MG ECTAB PO SCH (09:16)
[2023-09-10] MEDS: CLOPIDOGREL BISULFATE 75 MG TAB PO SCH (09:16)
[2023-09-10] MEDS ORDERED: GADOBUTROL 65ML VIAL IV ONE (11:39)
--- NOTE | 2023-09-10 12:01 | XCELERA ---
[id number] \\[id number]}___[id number]
--- NOTE | 2023-09-10 12:12 | Magnetic Resonance Report ---
MRI OF THE BRAIN COMBO CLINICAL HISTORY: Strokelike symptoms. Left upper and lower kidney weakness. Difficulty with speech. COMPARISON STUDY: CT of the brain dated 09/09/2023. MRI of the brain dated 09/09/2008. TECHNIQUE: MRI of the brain was performed utilizing various T1 and T2-weighted sequences in the axial , sagittal, and coronal planes. Contrast-enhanced sequences were acquired following the administratio n of 8.6 cc of Gadavist. FINDINGS: Brain parenchyma: There is an approximately 2 cm focus of restricted diffusion centered in the superi or right thalamus consistent with an acute to subacute lacunar infarct. No additional foci of restric rizwan diffusion are identified. There is no hemorrhage or mass effect. There is age related involutiona l change noting moderate subcortical and periventricular microangiopathic disease. No enhancing mass lesion is identified on the postcontrast images. No extra-axial fluid collection is seen. The cerebe llar tonsils are normal in configuration. Ventricles, sulci, and cisterns: Prominent secondary to positional change. Pituitary and sella: Unremarkable. Intracranial vasculature: Normal flow voids are maintained at the skull base. Orbits: The bony orbits are grossly intact. Orbital contents are normal in appearance noting bilatera l ocular lens implants. Sinuses and mastoids: There is trace left mastoid effusion. The right mastoid air cells and the paran corona sinuses are clear. Calvarium: Unremarkable. Cervical cord: Partially visualized cervical spinal cord is normal in morphology and signal intensity . IMPRESSION: 1. Acute to subacute lacunar infarct centered in the right thalamus as above. 2. No additional foci of acute ischemia are identified. 3. There is no hemorrhage or mass effect. ACT 112: Negative or not required by law. Electronically signed by: Dioni Berrios M.D. 09/10/2023 12:10 PM
[2023-09-10] MEDS: INSULIN ASPART PER UNIT CHARGE SC SCH ×3 (14:10→22:27)
[2023-09-10] MEDS ORDERED: VANCOMYCIN CONSULT ACTIVE PRN (16:52)
[2023-09-10] MEDS ORDERED: VANCOMYCIN HCL 1,000 MG in SODIUM CHLORIDE 0.9% 250 ML IV STA (16:52)
[2023-09-10] MEDS ORDERED: VANCOMYCIN HCL 1,750 MG in SODIUM CHLORIDE 0.9% 500 ML IV ONE (17:00)
[2023-09-10 17:37] LABS: C Reactive Protein 1.98 mg/dl (0-0.5)
[2023-09-10] MEDS: CEFEPIME 2,000 MG in SYRINGE 0 ML IV SCH (17:52)
[2023-09-10] MEDS: COLLAGENASE OINT 30 GM TUBE TOP SCH (17:53)
[2023-09-11] MEDS: CEFEPIME 2,000 MG in SYRINGE 0 ML IV SCH ×2 (04:55→17:00)
[2023-09-11] MEDS ORDERED: VANCOMYCIN HCL 750 MG in SODIUM CHLORIDE 0.9% 250 ML IV SCH (06:00)
--- NOTE | 2023-09-11 06:25 | CT Scan Report ---
Exam(s): CT L SPINE EXAM: CT Lumbar Spine Without Intravenous Contrast CLINICAL HISTORY: Reason for exam: Rule out osteomyelitis. TECHNIQUE: Axial computed tomography images of the lumbar spine without intravenous contrast. CTDI is 39.4 mGy and DLP is 1028.11 mGy-cm. Automated exposure control was utilized for the study. A dose lowering technique was utilized adhering to the principles of ALARA. COMPARISON: No relevant prior studies available. FINDINGS: Vertebrae: There are 5 lumbar type vertebral bodies with a mild generalized curved to the left and straightening the normal lumbar lordosis. There is a chronic lytic spondylolisthesis of L5 on S1 measuring 8 mm. There is a degenerative spondylolisthesis of L2 on L3, L3-L4 and L4-L5. Positive Highland sign at L3-4 and L4-5. No acute fracture. Ankylosis of the sacroiliac joints. There is a metallic foreign body in the right S2 neural foramen. Discs/spinal canal/neural foramina: There is severe bilateral L5-S1 neural foraminal stenoses. No acute findings. No spinal canal stenosis. Soft tissues: There is a common bile duct stent in place. IMPRESSION: No evidence of acute lumbar spine pathology. No evidence of osteomyelitis. 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 Electronically signed by: Page Delatorre MD 09/11/23 06:24 AM
--- NOTE | 2023-09-11 08:10 | Neurology Consultation ---
Date of Consultation September 11, 2023 Assessment & Plan (1) Acute CVA (cerebrovascular accident): (2) Carotid stenosis, bilateral: (3) Fatigue: (4) Sepsis: (5) Right shoulder pain: Plan Patient has suffered a small (2 cm) right thalamic area stroke resulting in some transient left facial droop and upper extremity weakness. The symptoms have essentially resolved. He does not have dysarthria or aphasia. Leg strength is symmetrical. Etiology of the stroke is likely small vessel ischemic disease despite 81 mg aspirin (that he was already taking). Patient has vascular disease including his severely stenotic right CAP SEWER and moderate stenoses in the internal carotid artery bulbs left (50%) and right (60%). Diabetes and advanced age and risk factors for stroke as well. The patient has chronic fatigue but also signs of sepsis from open wound. He is on IV antibiotics. His right shoulder pain seems to be an orthopedic issue (rotator cuff versus other) Recommendations: 1. Continue clopidogrel 75 mg daily +81 mg aspirin daily for a total of 3 weeks, then remain on clopidogrel 75 mg daily alone. 2. Control glucose as you are doing, aiming to decrease hemoglobin A1c to less than 7. 3. Continue atorvastatin 40 for now, but check fasting lipid profile. Given his advanced age he would not be a high-dose statin candidate in my opinion. 4. Increase activity as able with physical and occupational therapy- 5. Consider orthopedic consult (inpatient versus outpatient) for his right shoulder issue 6. Considering his fatigue and history, consider checking (if not already done) TSH, B12, vitamin D, CK Overall, I spent a total of 75 minutes with this case including review of records, review of MRI films, direct evaluation of the patient at bedside, report generation, and discussion of the case with the patient and RN at bedside, and Dioni Covarrubias, including differential diagnosis and treatment options. History of Present Illness Reason for Consultation: Patient is an 87-year-old, who I was asked to see at the request of Dioni covarrubias PA-C, for neurologic consultation regarding stroke Requesting Physician: Dioni Covarrubias PA-C Attending Physician: Marixa Grubbs MD History of Present Illness This patient has a history of diabetes, hyperbilirubinemia, choledocholithiasis with acute cholecystitis in the recent past, sensorineural hearing loss, chronic intermittent low back pain, recent right shoulder injury, and dyslipidemia. On September 09, he was last known well at noon. He then took a nap woke up somewhere between 2 and 3 PM being a little bit drowsy but also noted some slurred speech, left facial droop, and left arm weakness. He arrived to the emergency room at 1636 on September 09, with a temperature of 36.8, pulse 76 and regular, respiratory rate 19 and comfortable, blood pressure 118/59, and O2 saturation 92%. Examination in the emergency room revealed a mild left facial droop and some slightly slurred speech. The left upper extremity was weak. He has had a very painful right shoulder for at least a month (started when he was using his shotgun and rifles hunting this year). CBC was unremarkable and CHEM profile showed a sodium of 133, BUN of 28, and glucose of 118, urinalysis was unremarkable. CT scan of the head was unremarkable. CTA of the head and neck revealed severe stenosis of the right CAP SEWER, and carotid bulb stenosis 60% in the right ICA and 50% of the left ICA. Chest x-ray was unremarkable except for some cardiomegaly. CT scan of the lumbar spine showed osteoarthritis and spondylolisthesis with other degenerative changes at L5 and S1. MRI of the brain without contrast revealed a 2 cm right thalamic acute stroke. There was moderate generalized atrophy consistent with age and mild to moderate old small vessel ischemic disease. I reviewed these films. Today, the patient is feeling well except for his right shoulder pain. He has no other pain, headaches, dizziness, vision problems or speech problems. He denies any weakness numbness or pain in the limbs otherwise. Nursing reports no new issues overnight. He has not had any seizures. CBC is mildly elevated and CHEM profile is stable. Hemoglobin A1c was 7.6 and CRP was elevated at 1.98. ESR was 67. He is on cefepime and vancomycin, for a open low back wound (grew Klebsiella and E. coli August 29) Echocardiogram revealed some mild to moderate left ventricular hypertrophy and no other significant problems including no shunt with contrast Allergies Allergy/AdvReac Type Severity Reaction Status Date / Time No Known Allergies Allergy Unknown Verified 09/09/23 18:14 Home Medications Medication Instructions Recorded Confirmed Type aspirin 81 mg tablet,delayed 81 mg PO DAILY 12/20/20 09/09/23 History release amoxicillin 875 mg-potassium 1 tab PO BID 14 days #28 tabs 08/31/23 09/09/23 Rx clavulanate 125 mg tablet atorvastatin 40 mg tablet 40 mg PO HS #30 tabs 09/06/23 09/09/23 Rx enalapril maleate 10 mg tablet 10 mg PO DAILY #30 tabs 09/06/23 09/09/23 Rx indapamide 1.25 mg tablet 1.25 mg PO QAM #30 tabs 09/06/23 09/09/23 Rx metformin 1,000 mg tablet 1,000 mg PO BID #60 tabs 09/06/23 09/09/23 Rx semaglutide 7 mg tablet (Rybelsus) 7 mg PO DAILY #30 tabs 09/06/23 09/09/23 Rx tamsulosin 0.4 mg capsule (Flomax) 0.4 mg PO DAILY #30 caps 09/06/23 09/09/23 Rx collagenase clostridium histo. 250 1 applic topical DAILY PRN Wound 09/09/23 09/09/23 History unit/gram topical ointment (Santyl) Care ergocalciferol (vitamin D2) 1,250 50,000 unit PO WK 09/09/23 09/09/23 History mcg (50,000 unit) capsule (Vitamin D2) Patient History Medical History Hyperbilirubinemia Rhabdomyolysis DINORAH (acute kidney injury) Choledocholithiasis with acute cholecystitis Cholelithiasis History of acute cholangitis SNHL (sensorineural hearing loss) Hypercholesterolemia Diabetes Hemorrhoids Surgical History S/P ERCP (08/11/23) Endoscopic Retrograde Cholangiopancreatogram - Mika Wilburn, DO Laparoscopic Cholecystectomy - Skip Beltrán, DO Hx laparoscopic cholecystectomy (08/11/23) Endoscopic Retrograde Cholangiopancreatogram - Mika Wilburn, DO Laparoscopic Cholecystectomy - Skip Beltrán, DO Hx of cholecystectomy Hx of transurethral resection of prostate History of arthroplasty of knee Hx of hernia repair Hx of appendectomy Family History Mother Diabetes Father Heart disease Denies family history of Ovarian cancer Prostate cancer Myocardial infarction Breast cancer Colorectal cancer Social History (Updated 09/11/23 @ 07:58 by Jovon Ramirez MD) Smoking Status: Former smoker Age Started Using Tobacco: 16; Age Quit Using Tobacco: 23; Second Hand Exposure: Yes; Hx Alcohol Use: No Hx Substance Use: No Preferred Language: Indonesian Communication Ability: Effective Visual Impairment: No Limitations Hearing Ability: Use of Hearing Aid Atm Manager Required: No Beliefs That Will Affect Care: None marital status: / Current Living Situation: Alone current occupational status: retired current occupation: Retired from [employer] in his early 70s How many Children do You have: 5 Feels Safe at Home: Yes Childhood Exposure to Second-Hand Smoke: Yes Diet: regular during the past year weight has: remained stable Dental Care, Regularly: Yes Physical Activity Frequency: 1-2 Times per Week Seatbelt Use: always Sunscreen Use: Yes Assistive Devices: Cane, Glasses and Walker Review of Systems Constitutional: no fever, no fatigue and no weakness Eyes: no diplopia, no eye pain and no worsening vision Ear, Nose, Mouth, Throat: + hearing loss; no ear pain, no tinnitus , no dizziness, no snoring, no hoarseness and no dysphagia Respiratory: no cough and no dyspnea Cardiovascular: no chest pain, no palpitations and no lightheadedness Gastrointestinal: no abdominal pain, no nausea and no vomiting Musculoskeletal: + back pain and + joint pain (Severe rig ht shoulder pain with movement); no neck pain, no radicular pain and no myalgia Integumentary: no rash and no lesions Neurologic: no gait abnormality, no localized weakness, no generalized weakness, no tingling, no numbness, no tremor(s), no abnormal movements, no headache(s), no abnormal speech, no confusion and no memory loss Psychiatric: no depression, no irritability, no anxiety, no difficulty concentrating, no confusion and no hallucinations Endocrine: no fatigue and no flushing Hematologic / Lymphatic: no easy bleeding and no easy bruising Allergy / Immunological: no urticaria and no problem reported Exam (Neuro) Physical Exam: The patient is right-handed. Although the patient was asleep when I first saw him, he was easily aroused with voice and became awake, alert, and attentive. Speech is normal without any aphasia or dysarthria. Mentation and thought processes are intact, with full orientation and normal fund of knowledge. Mood and affect are normal and appropriate. Appearance and grooming are normal. Short and long-term memory are intact. Pupils are 3 mm bilaterally and reactive to light. Extraocular eye muscles are intact without nystagmus. Visual acuity and visual thomson seem normal grossly to confrontation. There are no deficits to sensation in the face in all 3 distributions of the fifth cranial nerve bilaterally. Corneal reflexes are positive bilaterally. Facial strength and symmetry was normal bilaterally. Hearing is mildly decreased bilaterally. Palate moves well without asymmetry. There is normal sternocleidomastoid and trapezius strength bilaterally. Tongue is midline with good strength bilaterally. Neck has a full range of motion without discomfort. There are no cervical bruits bilaterally. There are no cranial or ocular bruits. Heart is without murmur. There is a regular rhythm and rate. Cervical, thoracic, and lumbar spine are nontender to palpation. Gait was not tested but stance sitting up in bed is normal. With outstretched arms there is no drift, although it is very difficult for him to hold on his right upper extremity due to shoulder pain. There are no resting, postural, or action tremors. There is no ataxia with finger to nose testing on the left. There is good facility in the hands. No other abnormal involuntary movements are noted. Motor strength is 5/5 diffusely in the arms bilaterally including biceps, tricep s, brachioradialis, wrist flexors and extensors, project inspector, and intrinsic hand muscles. The right shoulder girdle and deltoid could not be tested due to significant shoulder pain with any movement or palpation. Motor strength is 5/5 diffusely in the legs bilaterally including hip flexors, quadriceps, hamstrings, gastrocnemius, tibialis anterior, tibialis posterior, and Peroneii muscles bilaterally. Toe extensors are normal and there is good bulk in the extensor digitorum brevis muscles bilaterally. The limbs have good tone without rigidity or spasticity. There is no atrophy noted in the muscles. Muscle bulk is normal, there is no tenderness to palpation, no myotonia to percussion, and no fasciculations seen. Sensory examination is intact to touch and pin throughout all 4 limbs diffusely. Reflexes are 0/4 in the biceps, triceps, brachioradialis, quadriceps, and Achilles tendons bilaterally. Toes are downgoing with plantar stimulation bilaterally. Peripheral pulses are present and of normal quality distally in all 4 limbs. There is no peripheral edema noted in the limbs. Results & Data Vital Signs (Past 12 Hours) Vital Signs Temp Pulse Resp BP Pulse Ox O2 Del Method 09/11/23 00:00 36.6 C 71 18 123/70 96 Room Air PG Care Time/CCT Total # of Minutes Spent Total Time Spent with Patient: Total time spent is greater than 50% in coordination of care (as documented) at patient's floor/unit and/or counseling patient: Coding Level of Care Code 89854 INT INP/OBS CARE 3/75MIN Diagnoses Acute CVA (cerebrovascular accident) I63.9 Carotid stenosis, bilateral I65.23 Fatigue R53.83 Sepsis A41.9 Right shoulder pain M25.511 Time Spent (min) 75
[2023-09-11] MEDS: CLOPIDOGREL BISULFATE 75 MG TAB PO SCH (08:35)
[2023-09-11] MEDS: TAMSULOSIN HCL 0.4 MG CAP PO SCH (08:35)
[2023-09-11] MEDS: COLLAGENASE OINT 30 GM TUBE TOP SCH (08:36)
[2023-09-11] MEDS: ASPIRIN 81 MG ECTAB PO SCH (08:36)
[2023-09-11] MEDS: CHOLECALCIFEROL 5,000 UNITS 125 MCG TAB PO SCH (08:36)
[2023-09-11] MEDS: INSULIN ASPART PER UNIT CHARGE SC SCH ×4 (08:38→21:09)
[2023-09-11] MEDS: LANTUS PER UNIT CHARGE SQ SCH ×2 (08:42→21:09)
[2023-09-11 09:28] LABS: Basophils # (auto) 0.09 K/uL (0.00-0.20); Basophils % (auto) 0.8 %; Eosinophils # (auto) 0.52 K/uL (0.00-0.50); Eosinophils % (auto) 4.4 %; Hematocrit (blood only) 42.6 % (42.0-52.0); Hemoglobin 14.5 g/dl (14.0-18.0); Immature Granulocytes % (auto) 0.8 %; Lymphocytes # (auto) 1.89 K/uL (1.20-3.40); Mean Corpuscular Hemoglobin 29.2 pg (25.0-34.0); Mean Corpuscular Volume 85.9 fL (80.0-100.0); Mean Platelet Volume 10.8 fL (9.4-12.4); Monocytes # (auto) 0.95 K/uL (0.11-0.59); Neutrophils # (auto) 8.26 K/uL (1.40-6.50); Platelet Count 235 K/uL (130-400); RDW Standard Deviation 43.9 fL (36.4-46.3); Red Blood Count 4.96 M/uL (4.70-6.10); White Blood Count 11.81 K/ul (4.8-10.8)
--- NOTE | 2023-09-11 09:31 | Hospitalist Progress Note ---
Date of Service September 11, 2023 Assessment & Plan (1) Stroke-like symptoms: Plan: CT and CTA are negative for acute findings. No midline shift or hemorrhagic affect MRI completed with acute to subacute right superior thalamic stroke lacunar infarct Neurology consulted. Appreciate Dr. Ramirez's input Patient started on clopidogrel, atorvastatin on admission. Home medications include aspirin 81 mg p.o. daily Patient should continue on ASA and Clopidogrel for three (3) weeks. At that time, ASA can be discontinued and patient should be continued on Clopidogrel (Plavix) Can resume outpatient antihypertensives At bedside, patient is able to sit at bedside with assist of 2 people. We were able to encourage him to stand at bedside and shuffle to the chair. Due to patient's chronic fatigue superimposed with acute cerebrovascular event, clinical impression is that patient will benefit from inpatient rehab. I discussed this with the patient and with the family. They are in favor. Also discussed with case management. Request referral to [facility] for stroke recovery as well as for rehabilitation for strengthening and endurance. Patient will also need focus on right shoulder as he is right-hand dominant and mobility is limited. Continue with stroke precautions (2) Right shoulder pain: Plan: Patient with history of right shoulder pain. In the past he has refused MRI due to claustrophobia and inability to continue procedure. Reports he has seen Dr. Choudhury many years ago. No imaging in [facility] at this point 2 view right shoulder x-ray today with severe osteoarthritis. No acute fracture or dislocation Discussed with ortho. No further imagining. Suggest outpatient followup with orthopedics Will place patient in shoulder immobilizer until seen by orthopedics as an outpatient and he complains with any movement of the shoulder (3) Fatigue: Plan: Most likely multifactorial PT/OT consult evaluation for acute CVA as well as complaints of fatigue Patient lives alone. Family in agreement that patient is unsafe to go home alone. Will request referral to [facility] for patient rehabilitation for CVA as well as generalized weakness. (4) Weakness: Plan: Most likely secondary to acute CVA as well as advanced age. PT/OT consults Continue with antibiotics for stage III pressure ulcer of the back Treat ongoing infections. Persistent weakness on the left side secondary to acute CVA Patient would benefit from inpatient rehab. (5) Stage III pressure ulcer of back: Plan: Wound care consult on Monday when they return For now, continue Santyl applied to the wound daily Patient on Augmentin as an outpatient as prescribed by outpatient wound clinic Review of notes indicated's that the ulcer has been worsening and appeared worse on 09/05/2023 with the development of an odor Due to patient's increased weakness and fatigue as well as leukocytosis will discontinued Augmentin and placed patient on cefepime and vancomycin IV (Day #2) CT of the spine with no evidence of osteomyelitis. Procalcitonin less than 0.05. C-reactive protein elevated at 1.98. ESR elevated at 67. No evidence of decreased renal function but follow labs daily Rotate patient every 2 hours to offload pressure to that site (6) Wound, open, arm, forearm: Plan: Antibiotics as above for sacral wound (7) Vitamin D deficiency: Plan: Vitamin D levels were 23 ng/mL 04/03/2023 and 23.8 ng/mL 08/01/2022 (8) Vitamin B12 deficiency: Plan: 583 pg/ml 02/20/2023 (180-914) Outpatient management (9) Sleep apnea: Plan: This diagnosis is added to Mr. Munson's profile due to symptoms and body build. He reported not to have further evaluation and is currently not on treatment with CPAP or BiPAP Patient has refused treatment in the past. Would address this as an outpatient Plan Acute lacunar infarct of the right thalamus appreciated PT/OT evaluation and treatment. Patient would benefit from placement for inpatient rehab. Referral to [facility] would be appreciated as this is probably the best location for this patient secondary to acute stroke, age, need for generalized physical rehabilitation before being able to safely return home Admission and Anticipated Discharge Date Admission Date: September 09, 2023 Supervising Physician Co-Signing Physician Notes PA Supervision Note: I did not personally see or examine the patient today, but I verified all sheriff points of CHRIS Covarrubias's assessment and plan with the following exceptions/additions: None Subjective Attending: Dr. Grubbs 87-year-old male that was admitted for left-sided weakness and facial droop. Patient presented outside the window of thrombolytics. CTA of the brain and neck with severe atherosclerotic plaque of the carotid bulbs resulting in 60% stenosis of the right ICA origin and 50% stenosis of the left as well as severe stenosis of the right posterior cerebral artery. MRI with acute to subacute lacunar infarct in the right thalamus. Patient started on aspirin 81 mg p.o. daily as well as atorvastatin 40 mg p.o. nightly and Plavix 75 mg p.o. daily for presumed TIA/CVA. Neurology consult was placed. PT OT evaluation yesterday revealed probable need for inpatient rehab. Patient seen at bedside with family present. He continues to be difficult to arouse. In discussion with family this is often just the patient refusing to cooperate. He is very fatigued and tired and this has happened over the last several months due to cholecystectomy, fall, chronic wound. Patient continues to complain of severe right shoulder pain. Years ago he spoke with Dr. Jay who said he was not a surgical candidate. No evaluation since that time. [facility]. Patient continues to have some left-sided weakness. He is able to stand at side of bed to use urinal and transfer to bedside chair with 2 person assist. Family unable to care for patient at home. He does live alone. Family can check on him frequently but no availability for 24-hour care or supervision for rehab at home. Patient continues to be extremely weak. Family does not feel he is safe to go home. Review of Systems 2 Review of Systems: A total of 10 systems was reviewed and is negative other than as listed in the HPI Physical Exam 2 Physical Exam: GENERAL : No acute distress EYES: No icterus, gaze conjugate NOSE: No evidence of epistaxis MOUTH: No lesions or candidiasis. Tongue midline with no deviation NECK: Supple. Full range of motion LUNGS: CTA B/L, no wheezes, rales or rhonchi HEART: Regular, rate controlled ABDOMEN: Soft, NT, ND, BS Present EXTREMITIES: No LE edema, pedal pulses intact NEURO: A&OX3 with encouragement. Patient is able to stand at bedside and use urinal and transfer to chair with a two-person assist. No slurred speech. Pupils are equal and round. Left-sided weakness noted. Shuffled gait to the chair. Results & Data Results & Data Vital Signs (Past 12 Hours) Vital Signs Temp Pulse Resp BP Pulse Ox O2 Del Method 09/11/23 08:17 36.2 C L 70 16 143/87 H 93 Room Air 09/11/23 08:00 Room Air 09/11/23 00:00 36.6 C 71 18 123/70 96 Room Air Laboratory Results Abnormal lab results 1209/10/23 09/10/23 Range/Units 03:42 12:02 18:21 WBC (4.8-10.8) K/ul Neut # (Auto) (1.40-6.50) K/uL [place] # (Auto) (0.11-0.59) K/uL Eos # (Auto) (0.00-0.50) K/uL ESR 67 H (0-20) mm/hr POC Glucose 117 H 101 H (70-99) mg/dl C-Reactive Protein 1.98 H (0-0.5) mg/dl 09/10/23 09/11/23 09/11/23 Range/Units 22:13 08:25 09:10 WBC 11.81 H (4.8-10.8) K/ul Neut # (Auto) 8.26 H (1.40-6.50) K/uL [place] # (Auto) 0.95 H (0.11-0.59) K/uL Eos # (Auto) 0.52 H (0.00-0.50) K/uL ESR (0-20) mm/hr POC Glucose 118 H 108 H (70-99) mg/dl C-Reactive Protein (0-0.5) mg/dl 09/11/23 09:10 09/11/23 09:10 Diagnostic Findings Brain MRI 09/10/23 09:00 MRI OF THE BRAIN COMBO CLINICAL HISTORY: Strokelike symptoms. Left upper and lower kidney weakness. Difficulty with speech. COMPARISON STUDY: CT of the brain dated 09/09/2023. MRI of the brain dated 09/09/2008. TECHNIQUE: MRI of the brain was performed utilizing various T1 and T2-weighted sequences in the axial, sagittal, and coronal planes. Contrast-enhanced sequences were acquired following the administration of 8.6 cc of Gadavist. FINDINGS: Brain parenchyma: There is an approximately 2 cm focus of restricted diffusion centered in the superior right thalamus consistent with an acute to subacute lacunar infarct. No additional foci of restricted diffusion are identified. There is no hemorrhage or mass effect. There is age related involutional change noting moderate subcortical and periventricular microangiopathic disease. No enhancing mass lesion is identified on the postcontrast images. No extra-axial fluid collection is seen. The cerebellar tonsils are normal in configuration. Ventricles, sulci, and cisterns: Prominent secondary to positional change. Pituitary and sella: Unremarkable. Intracranial vasculature: Normal flow voids are maintained at the skull base. Orbits: The bony orbits are grossly intact. Orbital contents are normal in appearance noting bilateral ocular lens implants. Sinuses and mastoids: There is trace left mastoid effusion. The right mastoid air cells and the paranasal sinuses are clear. Calvarium: Unremarkable. Cervical cord: Partially visualized cervical spinal cord is normal in morphology and signal intensity. IMPRESSION: 1. Acute to subacute lacunar infarct centered in the right thalamus as above. 2. No additional foci of acute ischemia are identified. 3. There is no hemorrhage or mass effect. ACT 112: Negative or not required by law. Electronically signed by: Dioni Berrios M.D. 09/10/2023 12:[address] 09/10/23 16:55 Exam(s): CT L SPINE EXAM: CT Lumbar Spine Without Intravenous Contrast CLINICAL HISTORY: Reason for exam: Rule out osteomyelitis. TECHNIQUE: Axial computed tomography images of the lumbar spine without intravenous contrast. CTDI is 39.4 mGy and DLP is 1028.11 mGy-cm. Automated exposure control was utilized for the study. A dose lowering technique was utilized adhering to the principles of ALARA. COMPARISON: No relevant prior studies available. FINDINGS: Vertebrae: There are 5 lumbar type vertebral bodies with a mild generalized curved to the left and straightening the normal lumbar lordosis. There is a chronic lytic spondylolisthesis of L5 on S1 measuring 8 mm. There is a degenerative spondylolisthesis of L2 on L3, L3-L4 and L4-L5. Positive [place] sign at L3-4 and L4-5. No acute fracture. Ankylosis of the sacroiliac joints. There is a metallic foreign body in the right S2 neural foramen. Discs/spinal canal/neural foramina: There is severe bilateral L5-S1 neural foraminal stenoses. No acute findings. No spinal canal stenosis. Soft tissues: There is a common bile duct stent in place. IMPRESSION: No evidence of acute lumbar spine pathology. No evidence of osteomyelitis. 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 Electronically signed by: Page Delatorre MD 09/11/23 06:24 AM PG Care Time/CCT Total # of Minutes Spent Total Time Spent with Patient: Total time spent is greater than 50% in coordination of care (as documented) at patient's floor/unit and/or counseling patient: Coding Level of Care Code 23693 SUB INP/OBS CARE 2/35MIN Diagnoses Stroke-like symptoms R29.90 Right shoulder pain M25.511 Fatigue R53.83 Weakness R53.1 Stage III pressure ulcer of back L89.103 Wound, open, arm, forearm S51.809A Vitamin D deficiency E55.9 Vitamin B12 deficiency E53.8 Sleep apnea G47.30
[2023-09-11 09:43] LABS: BUN Creatinine Ratio 18.5 (10-20); Calcium 9.3 mg/dl (8.6-10.3); Creatinine Clr Calc Pharmacy 49.6 ml/min; Est GFR (African American) 70.2 ml/min; Est GFR (Non-African American) 60.5 ml/min; Potassium 3.8 mmol/L (3.5-5.1)
[2023-09-11] MEDS ORDERED: MICONAZOLE NITRATE POWDER 85 GM EXT PRN (10:07)
--- NOTE | 2023-09-11 12:39 | Pharmacy Report ---
Pharmacy PK ABX Note - Date of Service September 11, 2023 - Assessment and Plan Assessment 87 year old M receiving cefepime and vancomycin for treatment of stage III pressure ulcer. Pertinent microbiologic data includes: blood cultures NGTD SCr with notable increase today. OK to give PM dose of vancomycin tonight, but will place ongoing vancomycin on hold pending level tomorrow Plan Vancomycin * Maintenance dose: 750 mg IV every 12 hours, hold at 2359 * Random level ordered for 1/2 AM Pharmacy will continue to follow and will adjust dose/frequency as necessary. Thank you. Pharmacy has transitioned to AUC monitoring for vancomycin. AUC/LEVI is the preferred PK/PD target and is associated with decreased risk of nephrotoxicity compared to traditional trough targets.
[2023-09-11] MEDS ORDERED: ERGOCALCIFEROL 50,000 UNITS 1250 MCG CAP PO SCH (13:30)
--- NOTE | 2023-09-11 13:33 | XRay Report ---
XR shoulder RT min 2V routine CLINICAL HISTORY: Mobility restriction, severe pain, no trauma COMPARISON: Chest CT August 08, 2023. FINDINGS: Alignment of the right shoulder is anatomic. There is no acute fracture. There is severe g lenohumeral joint space narrowing. There is associated osteophytosis and subchondral sclerosis. There is mild AC joint osteoarthritis. Several calcific densities adjacent to the glenoid and humeral head are present. IMPRESSION: 1. No acute fracture or dislocation within the right shoulder. 2. Severe right glenohumeral joint osteoarthritis. ACT 112: Negative or not required by law. Electronically signed by: Bill Keith M.D. 09/11/2023 1:32 PM
[2023-09-11] MEDS: ENALAPRIL MALEATE 10 MG TAB PO SCH (13:43)
[2023-09-11] MEDS: ACETAMINOPHEN 325 MG TAB PO PRN ×2 (13:48→21:08)
[2023-09-11] MEDS ORDERED: VANCOMYCIN HCL 1,250 MG in SODIUM CHLORIDE 0.9% 250 ML IV SCH (21:00)
[2023-09-11] MEDS: ATORVASTATIN 40 MG TAB PO SCH (21:09)
[2023-09-12] MEDS ORDERED: SODIUM CHLORIDE 0.9% 1,000 ML IV SCH (01:00)
[2023-09-12] MEDS: LIDOCAINE 2% JELLY 5 ML TUBE EXT SCH ×5 (07:56→16:59)
[2023-09-12] MEDS: ASPIRIN 81 MG ECTAB PO SCH (07:58)
[2023-09-12] MEDS: AMOXICILLIN/CLAVULANATE 875 MG TAB PO SCH ×2 (07:58→17:00)
[2023-09-12] MEDS: CHOLECALCIFEROL 5,000 UNITS 125 MCG TAB PO SCH (07:59)
[2023-09-12] MEDS: CLOPIDOGREL BISULFATE 75 MG TAB PO SCH (07:59)
[2023-09-12] MEDS: COLLAGENASE OINT 30 GM TUBE TOP SCH (08:19)
[2023-09-12] MEDS: TAMSULOSIN HCL 0.4 MG CAP PO SCH (08:20)
[2023-09-12] MEDS: ENALAPRIL MALEATE 10 MG TAB PO SCH (08:20)
--- NOTE | 2023-09-12 08:55 | Neurology Progress Note ---
Date of Service September 12, 2023 Assessment & Plan (1) Acute CVA (cerebrovascular accident): (2) Carotid stenosis, bilateral: (3) Fatigue: (4) Sepsis: (5) Right shoulder pain: Plan Patient has suffered a small (2 cm) high right thalamic area stroke (bordering the basal ganglia) resulting in some transient/mild left facial droop and upper extremity weakness. The symptoms have essentially resolved. He does not have dysarthria or aphasia. Leg strength is symmetrical. She feels back to baseline. Etiology of the stroke is likely small vessel ischemic disease despite 81 mg aspirin (that he was already taking). 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 Diabetes and advanced age are risk factors for stroke as well. The patient has chronic fatigue but also signs of sepsis from open wound. He is on IV antibiotics. His right shoulder pain seems to be an orthopedic issue, and I suspect a severe rotator cuff tear. Plain x-ray showed significant glenohumeral osteoarthritis. This patient may have some mild underlying dementia secondary to age/vascular issues, but it is not clinically significant currently Recommendations: 1. Continue clopidogrel 75 mg daily +81 mg aspirin daily for a total of 3 weeks, then remain on clopidogrel 75 mg daily alone. 2. Control glucose as you are doing, aiming to decrease hemoglobin A1c to less than 7. 3. Continue atorvastatin 40 for now, but check fasting lipid profile. Given his advanced age he would not be a high-dose statin candidate in my opinion. 4. Increase activity as able with physical and occupational therapy. He would be an excellent rehabilitation Hospital candidate in my opinion 5. Orthopedic consult [facility] as an outpatient for his right shoulder. Sling the arm when he is up. 6. In lieu of his fatigue and overall history, consider obtaining TSH, B12, vitamin D, CK 7. I could follow-up as an outpatient, if desired, 2 to 3 weeks after discharge (from rehab if he ends up there) with a neurology PA Overall, I spent a total of 55 minutes with this case including review of records, review of MRI films, direct evaluation of the patient at bedside, report generation, and discussion of the case with the patient and RN at bedside, and Dioni Covarrubias, including differential diagnosis and treatment options. Admission and Anticipated Discharge Date Admission Date: September 09, 2023 Subjective Patient has no complaint of pain, dizziness, speech problems, mentation problem, or visual issue Nursing reports no new issues overnight Glucose was 156 and CBC yesterday was unremarkable. Blood pressure this morning is 131/74 and he is afebrile. Plain x-ray of the right shoulder shows significant osteoarthritis but no fracture or dislocation. Results & Data Vital Signs (Past 12 Hours) Vital Signs Temp Pulse Resp BP Pulse Ox O2 Del Method 09/12/23 07:38 36.4 C L 66 18 131/74 94 Room Air 09/12/23 04:25 36.3 C L 66 16 111/63 93 Room Air 09/11/23 23:29 36.2 C L 64 18 96/56 L 91 Room Air Exam (Neuro) Physical Exam: He is awake and alert. Speech is without aphasia or dysarthria. Mood is reasonable and affect is appropriate. Thought processes are reasonable to conversation. He is a little hard of hearing but does not use hearing aids. Patient is oriented to name and place but not time. Patient had no language issues and could name objects and identify issues on a test picture. Extraocular eye muscles are intact without nystagmus. There is some asymmetry of the left face but the corner of the mouth on the left moves well. Tongue is midline and palate raises symmetrically. No abnormal involuntary movements were noted. Motor strength seem essentially 5/5 diffusely in all major muscle groups in the legs both proximally and distally as well as the left upper extremity. The right upper extremity was difficult to examine because of severe right shoulder pain, but distally was intact. There were no sensory deficits in the face arms or legs bilaterally. PG Care Time/CCT Total # of Minutes Spent Total Time Spent with Patient: Total time spent is greater than 50% in coordination of care (as documented) at patient's floor/unit and/or counseling patient: Coding Level of Care Code 83084 SUB INP/OBS CARE 3/50MIN Diagnoses Acute CVA (cerebrovascular accident) I63.9 Carotid stenosis, bilateral I65.23 Fatigue R53.83 Sepsis A41.9 Right shoulder pain M25.511 Time Spent (min) 55
[2023-09-12] MEDS: LANTUS PER UNIT CHARGE SQ SCH ×2 (09:16→21:18)
[2023-09-12] MEDS: INSULIN ASPART PER UNIT CHARGE SC SCH ×4 (09:16→21:18)
[2023-09-12 10:26] LABS: Basophils # (auto) 0.07 K/uL (0.00-0.20); Basophils % (auto) 0.7 %; Eosinophils # (auto) 0.37 K/uL (0.00-0.50); Eosinophils % (auto) 3.6 %; Hematocrit (blood only) 43.7 % (42.0-52.0); Hemoglobin 14.3 g/dl (14.0-18.0); Immature Granulocytes # (auto) 0.09 K/uL (0.01-0.20); Immature Granulocytes % (auto) 0.9 %; Lymphocytes # (auto) 1.67 K/uL (1.20-3.40); Lymphocytes % (auto) 16.4 %; Mean Corpuscular Hemoglobin 28.9 pg (25.0-34.0); Mean Corpuscular Hgb Conc 32.7 g/dL (32.0-36.0); Mean Corpuscular Volume 88.3 fL (80.0-100.0); Mean Platelet Volume 10.5 fL (9.4-12.4); Monocytes # (auto) 0.79 K/uL (0.11-0.59); Monocytes % (auto) 7.8 %; Neutrophils # (auto) 7.18 K/uL (1.40-6.50); Neutrophils % (auto) 70.6 %; Platelet Count 229 K/uL (130-400); RDW Coefficient of Variation 14.3 % (11.5-14.5); RDW Standard Deviation 45.8 fL (36.4-46.3); Red Blood Count 4.95 M/uL (4.70-6.10); White Blood Count 10.17 K/ul (4.8-10.8)
[2023-09-12 10:34] LABS: Basophils # (auto) 0.06 K/uL (0.00-0.20); Basophils % (auto) 0.6 %; Eosinophils # (auto) 0.39 K/uL (0.00-0.50); Eosinophils % (auto) 3.9 %; Hematocrit (blood only) 44.2 % (42.0-52.0); Hemoglobin 14.5 g/dl (14.0-18.0); Lymphocytes # (auto) 1.67 K/uL (1.20-3.40); Lymphocytes % (auto) 16.6 %; Mean Corpuscular Hemoglobin 29.2 pg (25.0-34.0); Mean Corpuscular Hgb Conc 32.8 g/dL (32.0-36.0); Mean Corpuscular Volume 88.9 fL (80.0-100.0); Mean Platelet Volume 11.1 fL (9.4-12.4); Monocytes # (auto) 0.77 K/uL (0.11-0.59); Monocytes % (auto) 7.7 %; Neutrophils # (auto) 7.06 K/uL (1.40-6.50); Neutrophils % (auto) 70.2 %; Platelet Count 245 K/uL (130-400); RDW Coefficient of Variation 14.4 % (11.5-14.5); RDW Standard Deviation 46.9 fL (36.4-46.3); Red Blood Count 4.97 M/uL (4.70-6.10); White Blood Count 10.05 K/ul (4.8-10.8)
[2023-09-12 10:46] LABS: Albumin Level 3.4 gm/dl (3.4-5.0); BUN Creatinine Ratio 19.6 (10-20); Bilirubin,Total 0.9 mg/dl (0.2-1.0); Calcium 9.2 mg/dl (8.6-10.3); Creatinine Clr Calc Pharmacy 57.9 ml/min; Est GFR (African American) 85.2 ml/min; Est GFR (Non-African American) 73.5 ml/min; Globulin 3.3 gm/dl (2.5-4.0); Magnesium 1.7 mg/dl (1.7-2.4); Potassium 3.8 mmol/L (3.5-5.1); Total Protein 6.7 gm/dl (6.0-8.3)
[2023-09-12 10:48] LABS: BUN Creatinine Ratio 19.1 (10-20); Calcium 9.2 mg/dl (8.6-10.3); Creatinine Clr Calc Pharmacy 56.6 ml/min; Est GFR (Non-African American) 71.6 ml/min; Potassium 3.7 mmol/L (3.5-5.1)
[2023-09-12] MEDS: ACETAMINOPHEN 325 MG TAB PO PRN ×3 (13:00→21:18)
--- NOTE | 2023-09-12 15:35 | Pharmacy Report ---
- Date of Service September 12, 2023 - Pharmacy CVA/TIA Medication Review Medications to Prevent Stroke handout has been added to the patients discharge packet. Antiplatelet(s) * aspirin EC 81mg x 3 weeks Cholesterol * High intensity statin: atorvastatin 40 mg daily DVT Prophylaxis * SCD knee Therapeutic Anticoagulation * No history of Afib/Aflutter noted Type 2 Diabetes * Patient has T2DM and patient is prescribed semaglutide
--- NOTE | 2023-09-12 18:48 | Hospitalist Progress Note ---
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 CT head negative MRI brain showed acute to subacute right superior thalamic stroke lacunar infarct, 2 cm Neurology consulted. Appreciate Dr. Ramirez's input-most likely small vessel ischemic disease and occurred in the setting of taking daily baby aspirin. He also has diabetes and advanced age his risk factors for stroke Echocardiogram negative and bubble study negative TSH, B12, vitamin D, CK all checked as per neurology recommendations and normal Fortunately, his left-sided weakness seems to be much improved or completely resolved. Hemoglobin A1c fairly well-controlled for his age at 7.6% -Lipids were not checked-will check however neurology thinks that he should not be a high intensity statin candidate due to advanced age -Continue dual antiplatelet therapy with clopidogrel and aspirin x 3 weeks and then discontinue aspirin, remain on Plavix alone -He is already on high intensity atorvastatin -Permissive hypertension initially but now have restarted home enalapril. Blood pressure a bit soft this morning so hold off on restarting home indapamide -He has not been on telemetry monitoring for arrhythmia since admission but does have a sinus rhythm on initial EKG and on examination -Follow-up with neurology PA in the office in 2 to 3 weeks after discharge from rehab (2) Carotid stenosis, bilateral: Plan: As above, now on dual antiplatelet therapy, high intensity statin 50% on left and 60% on right (3) Stage III pressure ulcer of back: Plan: Wound care consult appreciated Patient on Augmentin as an outpatient as prescribed by outpatient wound clinic for E. coli and Klebsiella on culture Initially here with leukocytosis on admission and fatigue-was placed on IV antibiotics CT of the spine with no evidence of osteomyelitis. Procalcitonin less than 0.05. C-reactive protein elevated at 1.98. ESR elevated at 67 but does not seem related to osteomyelitis No fevers, do not suspect osteomyelitis Offload pressure (4) Right shoulder pain: Plan: Patient with history of right shoulder pain. In the past he has refused MRI due to claustrophobia and inability to continue procedure. Reports he has seen Dr. Choudhury many years ago. Shoulder x-ray with severe osteoarthritis. No acute fracture or dislocation Discussed with ortho. No further imagining. Suggest outpatient followup with orthopedics Will place patient in shoulder immobilizer until seen by orthopedics as an outpatient and he complains with any movement of the shoulder (5) Diabetes mellitus: Plan: Well-controlled Continue basal bolus insulin here and resume home metformin and semaglutide on discharge (6) Fatigue: Plan: Most likely multifactorial TSH, vitamin D, CK, B12 all checked and normal PT/OT consult evaluation for acute CVA as well as complaints of fatigue Patient lives alone. Family in agreement that patient is unsafe to go home alone. Will request referral to [facility] for patient rehabilitation for CVA as well as generalized weakness. (7) Wound, open, arm, forearm: Plan: Wound care (8) Vitamin D deficiency: Plan: Vitamin D levels previously was low and now normal Continue vitamin D supplementation (9) Vitamin B12 deficiency: Plan: Previously low and now normal No supplementation needed for now (10) Sleep apnea: Plan: This diagnosis is added to Mr. Munson's profile due to symptoms and body build. He reported not to have further evaluation and is currently not on treatment with CPAP or BiPAP Patient has refused treatment in the past. Would address this as an outpatient (11) BPH (benign prostatic hyperplasia): Plan: No acute issues, bladder scans have been acceptable Continue home tamsulosin (12) HTN (hypertension), benign: Plan: Blood pressures a bit soft this morning Hold off on restarting home indapamide Continue home enalapril Plan DVT prophylaxis-SCDs Disposition-awaiting rehab placement Admission and Anticipated Discharge Date Admission Date: September 09, 2023 Subjective Patient feels fine has no complaints. Reports he is able to use his left side of the body without problems but has pain in the right shoulder. He has not been on telemetry monitoring this entire hospitalization Physical Exam Constitutional: WD/WN, vitals as above Respiratory: normal respiratory effort, lungs clear to auscultation Cardiovascular: RRR, no murmur, no edema Neurologic: CN's II-XI intact bilaterally and awake; no focal motor deficits Pain in right shoulder prevents full muscle strength testing of right upper extremity Results & Data Results & Data Vital Signs (Past 12 Hours) Vital Signs Temp Pulse Resp BP Pulse Ox O2 Del Method 09/12/23 15:27 36.7 C 96 H 20 100/61 96 Room Air 09/12/23 10:59 36.7 C 83 18 98/52 L 95 Room Air 09/12/23 07:38 36.4 C L 66 18 131/74 94 Room Air Laboratory Results CBC, BMP, vitamin D, B12, CK, TSH level all reviewed PG Care Time/CCT Total # of Minutes Spent Total Time Spent with Patient: Total time spent is greater than 50% in coordination of care (as documented) at patient's floor/unit and/or counseling patient: Coding Level of Care Code 30014 SUB INP/OBS CARE 235MIN Diagnoses Acute CVA (cerebrovascular accident) I63.9 Carotid stenosis, bilateral I65.23 Stage III pressure ulcer of back L89.103 Right shoulder pain M25.511 Diabetes mellitus E11.9 Fatigue R53.83 Wound, open, arm, forearm S51.809A Vitamin D deficiency E55.9 Vitamin B12 deficiency E53.8 Sleep apnea G47.30 BPH (benign prostatic hyperplasia) N40.0 HTN (hypertension), benign I10
[2023-09-12] MEDS: ATORVASTATIN 40 MG TAB PO SCH (21:18)
[2023-09-13] MEDS: LIDOCAINE 2% JELLY 5 ML TUBE EXT SCH ×2 (00:27→05:43)
[2023-09-13] MEDS: ACETAMINOPHEN 325 MG TAB PO PRN (08:54)
[2023-09-13] MEDS: LANTUS PER UNIT CHARGE SQ SCH (08:54)
[2023-09-13] MEDS: INSULIN ASPART PER UNIT CHARGE SC SCH (08:54)
--- NOTE | 2023-09-13 08:54 | Neurology Progress Note ---
Date of Service September 13, 2023 Assessment & Plan (1) Acute CVA (cerebrovascular accident): (2) Carotid stenosis, bilateral: (3) Fatigue: (4) Sepsis: (5) Right shoulder pain: Plan Patient has suffered a small (2 cm) high right thalamic area stroke (bordering the basal ganglia) resulting in some transient/mild left facial droop and upper extremity weakness. The symptoms have essentially resolved (there is a slight asymmetry of the left face at the corner of the mouth but it moves well). He does not have dysarthria or aphasia. Leg strength is symmetrical. He feels back to baseline. Etiology of the stroke is likely small vessel ischemic disease despite 81 mg aspirin (that he was already taking). 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 Diabetes and advanced age are risk factors for stroke as well. The patient has chronic fatigue but also signs of sepsis from open wound. ESR remains high at 65 and he is on oral antibiotics. His right shoulder pain seems to be an orthopedic issue, and I suspect a severe rotator cuff tear. Plain x-ray showed significant glenohumeral osteoarthritis. This patient may have some mild underlying dementia secondary to age/vascular issues, but it is not clinically significant currently. Recommendations: 1. Continue clopidogrel 75 mg daily +81 mg aspirin daily for a total of 3 weeks, then remain on clopidogrel 75 mg daily alone. 2. Control glucose as you are doing, aiming to decrease hemoglobin A1c to less than 7. 3. Continue atorvastatin 40 for now, but check fasting lipid profile. Given his advanced age he would not be a high-dose statin candidate in my opinion. 4. Increase activity as able with physical and occupational therapy. He would be an excellent rehabilitation Hospital candidate in my opinion 5. Orthopedic consult as an outpatient for his right shoulder. Sling the arm when he is up. 6. I could follow-up as an outpatient, if desired, 2 to 3 weeks after discharge (from rehab if he ends up there) with a neurology PA Overall, I spent a total of 50 minutes with this case including review of records, review of MRI films, direct evaluation of the patient at bedside, report generation, and discussion of the case with the patient and RN at bedside, and Dioni Covarrubias, including differential diagnosis and treatment options. Admission and Anticipated Discharge Date Admission Date: September 09, 2023 Subjective The patient feels stable with no new issues or problems. He denies pain or headache and does not have any dizziness. He does not feel any numbness or weakness of limbs. He continues to have severe right shoulder pain. Nursing reports no new issues overnight. We are awaiting rehab placement. Blood pressure is 120/72 and he is afebrile. Laboratory studies yesterday revealed a normal CBC. Sed rate was 65 and CHEM profile was largely unremarkable. B12 was 532 at vitamin D was 54.8. CK was 61 Results & Data Vital Signs (Past 12 Hours) Vital Signs Temp Pulse Resp BP Pulse Ox O2 Del Method 09/13/23 07:54 36.3 C L 70 16 120/72 95 Room Air 09/13/23 03:10 36.4 C L 78 20 115/70 96 Room Air 09/12/23 23:57 36.7 C 61 18 91/46 L 94 Room Air Exam (Neuro) Physical Exam: Is awake and alert. Speech is without obvious aphasia or dysarthria. He can repeat test phrases well, name objects, and read test words. He can interpret a picture and remembered that the water was overflowing from the sink (he looked at the picture yesterday). He is oriented to name and the fact that he is in a hospital in [place]. He does not not know the year. Extraocular eye muscles are intact without nystagmus. Pupils are 3 mm bilaterally. There is no facial weakness but there is some asymmetry of the left. It does move with voluntary smile. Tongue is midline and moves well. Palate raises well and he has good sternocleidomastoid and masseter strength bilaterally. Coordination is normal on the left. The right upper extremity was not tested because of his severe right shoulder pain. No abnormal involuntary movements were noted. Motor strength was symmetrical in the lower extremities being essentially 5/5. Strength is essentially 5/5 diffusely in the left upper extremity both proximally and distally. Tone was normal in these limbs as well. Reflexes were essentially absent in all 4 limbs toes were downgoing with plantar stimulation bilaterally. There was no obvious sensory deficits of the face, arms, or legs. PG Care Time/CCT Total # of Minutes Spent Total Time Spent with Patient: Total time spent is greater than 50% in coordination of care (as documented) at patient's floor/unit and/or counseling patient: Coding Level of Care Code 63024 SUB INP/OBS CARE 350MIN Diagnoses Acute CVA (cerebrovascular accident) I63.9 Carotid stenosis, bilateral I65.23 Fatigue R53.83 Sepsis A41.9 Right shoulder pain M25.511 Time Spent (min) 50
[2023-09-13] MEDS: ENALAPRIL MALEATE 10 MG TAB PO SCH (08:55)
[2023-09-13] MEDS: TAMSULOSIN HCL 0.4 MG CAP PO SCH (08:56)
[2023-09-13] MEDS: AMOXICILLIN/CLAVULANATE 875 MG TAB PO SCH (08:56)
[2023-09-13] MEDS: CLOPIDOGREL BISULFATE 75 MG TAB PO SCH (08:56)
[2023-09-13] MEDS: CHOLECALCIFEROL 5,000 UNITS 125 MCG TAB PO SCH (08:56)
[2023-09-13] MEDS: ASPIRIN 81 MG ECTAB PO SCH (08:56)
[2023-09-13] MEDS: COLLAGENASE OINT 30 GM TUBE TOP SCH (08:57)
[2023-09-13] MEDS ORDERED: STROKE PATIENT DISCHARGE STA (10:38)
--- NOTE | 2023-09-13 10:44 | Discharge Summary ---
Discharge Summary Date of Service September 13, 2023 Notes For Next Care Provider Continue wound care for sacral ulcer, keep appointment for CT pelvis as outpatient Medication Changes From Visit Added Plavix 75mg po daily Continue ASA 81mg po daily only for 17 more days, then stop Admission HPI Per Admitting Provider Koffi Walker is an 87yo male with history of HTN and DM presenting from home with concern for CVA. Patient was in his usual state of health today around normal when he took a nap. He woke 2-3 hours later and was found to have some left sided weakness involving the arm and the leg as well as a left facial droop. He was drowsy with garbled speech. EMS was called and the patient was brought to [facility]. In the ER he is afebrile, HD stable, NAD ER Course: Ceftriaxone Principal Dx & Hospital Course #1 = Principal Diagnosis (1) Acute CVA (cerebrovascular accident): Patient presented with left-sided weakness and facial droop and was outside the window for thrombolytic therapy when he presented to the ER CT and CTA are negative for acute findings but did show severe stenosis of the right [employer] and moderate bilateral ICA stenosis. CT head negative MRI brain showed acute to subacute right superior thalamic stroke lacunar infarct, 2 cm Neurology consulted. Appreciate Dr. Ramirez's input-most likely small vessel ischemic disease and occurred in the setting of taking daily baby aspirin. He also has diabetes and advanced age his risk factors for stroke Echocardiogram negative and bubble study negative TSH, B12, vitamin D, CK all checked as per neurology recommendations and normal Fortunately, his left-sided weakness seems to be much improved or completely resolved. Hemoglobin A1c fairly well-controlled for his age at 7.6% -Lipids were not checked prior to discharge- neurology thinks that he should not be a high intensity statin candidate due to advanced age -Continue dual antiplatelet therapy with clopidogrel and aspirin x 3 weeks and then discontinue aspirin, remain on Plavix alone -He is already on high intensity atorvastatin -is on GLP-1 for DM and CVA -Permissive hypertension initially but now have restarted home enalapril. Resume home indapamide on discharge -He has not been on telemetry monitoring for arrhythmia since admission but does have a sinus rhythm on initial EKG and on examination -Follow-up with neurology PA in the office in 2 to 3 weeks after discharge from rehab (2) Carotid stenosis, bilateral: As above, now on dual antiplatelet therapy, high intensity statin 50% on left and 60% on right (3) Stage III pressure ulcer of back: Wound care consult appreciated Patient on Augmentin as an outpatient as prescribed by outpatient wound clinic for E. coli and Klebsiella on culture-finish out 14 day course on 09/14 Initially here with leukocytosis on admission and fatigue-was placed on IV antibiotics but subsequently discontinued CT of the lumbar spine was performed with no evidence of osteomyelitis, although a pelvis CT would be better-this was not here and is already scheduled as an outpt but suspicion low for OM Procalcitonin less than 0.05. C-reactive protein elevated at 1.98. ESR elevated at 67 but does not seem related to osteomyelitis No fevers, do not suspect osteomyelitis Offload pressure, continue wound care Continue f/u with [facility] as scheduled (4) Right shoulder pain: Patient with history of right shoulder pain. In the past he has refused MRI due to claustrophobia and inability to continue procedure. Reports he has seen Dr. Choudhury many years ago. Shoulder x-ray with severe osteoarthritis. No acute fracture or dislocation Discussed with ortho. No further imagining. Suggest outpatient followup with orthopedics Will place patient in shoulder immobilizer until seen by orthopedics as an outpatient and he complains with any movement of the shoulder (5) Diabetes mellitus: Well-controlled Continue basal bolus insulin here and resume home metformin and semaglutide on discharge (6) Fatigue: Most likely multifactorial TSH, vitamin D, CK, B12 all checked and normal PT/OT consult evaluation for acute CVA as well as complaints of fatigue Patient lives alone. Family in agreement that patient is unsafe to go home alone. Will request referral to [facility] for patient rehabilitation for CVA as well as generalized weakness. (7) Wound, open, arm, forearm: Wound care (8) Vitamin D deficiency: Vitamin D levels previously was low and now normal Continue vitamin D supplementation (9) Vitamin B12 deficiency: Previously low and now normal No supplementation needed for now (10) Sleep apnea: This diagnosis is added to Mr. Munson's profile due to symptoms and body build. He reported not to have further evaluation and is currently not on treatment with CPAP or BiPAP Patient has refused treatment in the past. Would address this as an outpatient (11) BPH (benign prostatic hyperplasia): No acute issues, bladder scans have been acceptable Continue home tamsulosin (12) HTN (hypertension), benign: BPs normal resume home indapamide Continue home enalapril Plan DVT prophylaxis-SCDs Disposition-for rehab placement today Discharge Exam Constitutional WD/WN, vitals as above Respiratory normal respiratory effort, lungs clear to auscultation Cardiovascular RRR, no murmur, no edema Skin dressings in place over sacral wound an back wound Neurologic CN's II-XI intact bilaterally and awake; no focal motor deficits Updated Medication List Medication Instructions Recorded Confirmed Type aspirin 81 mg tablet,delayed 81 mg PO DAILY 12/20/20 09/09/23 History release amoxicillin 875 mg-potassium 1 tab PO BID 14 days #28 tabs 08/31/23 09/09/23 Rx clavulanate 125 mg tablet atorvastatin 40 mg tablet 40 mg PO HS #30 tabs 09/06/23 09/09/23 Rx enalapril maleate 10 mg tablet 10 mg PO DAILY #30 tabs 09/06/23 09/09/23 Rx indapamide 1.25 mg tablet 1.25 mg PO QAM #30 tabs 09/06/23 09/09/23 Rx metformin 1,000 mg tablet 1,000 mg PO BID #60 tabs 09/06/23 09/09/23 Rx semaglutide 7 mg tablet (Rybelsus) 7 mg PO DAILY #30 tabs 09/06/23 09/09/23 Rx tamsulosin 0.4 mg capsule (Flomax) 0.4 mg PO DAILY #30 caps 09/06/23 09/09/23 Rx collagenase clostridium histo. 250 1 applic topical DAILY PRN Wound 09/09/23 09/09/23 History unit/gram topical ointment (Santyl) Care ergocalciferol (vitamin D2) 1,250 50,000 unit PO WK 09/09/23 09/09/23 History mcg (50,000 unit) capsule (Vitamin D2) acetaminophen 325 mg tablet 650 mg (2 x 325 mg) PO Q4H PRN 09/13/23 Rx pain #30 tabs clopidogrel 75 mg tablet 75 mg PO QAM #30 tabs 09/13/23 Rx miconazole nitrate 2 % topical 1 applic EXT PRN PRN rash under 09/13/23 Rx powder (Desenex) skin folds #85 grams Hospital Stay Data Consultations 09/09/23 19:34 ED Decision to Admit Stat 09/10/23 16:33 Consult Neurology Routine Diagnostic Imagining Performed 09/09/23 16:38 CT angio head w con Stat CT angio neck with con Stat CT head/brain wo con Stat 09/10/23 09:00 MR brain wo/w con Routine 09/10/23 16:55 CT spine [CT lumbar spine wo con] Urgent ECHO Pending Results Patient Have Any Pending Studies at Discharge: No Discharge Instructions Given to Patient (Per Discharging Provider) Continue aspirin and Plavix x 17 more days and then discontinue aspirin, remain on Plavix alone. Continue good diabetes and blood pressure control. Continue on the Augmentin for 1 more day as prescribed for your sacral wound and continue daily wound care, pressure offloading, and Wound Center follow up. A CT of the pelvis is scheduled for you as an outpatient to further assess for osteomyelitis but you have not had any other signs of osteomyelitis here. For your right shoulder pain from severe arthritis, continue PT/OT and pain control with Tylenol as needed. Risk Factors for Stroke: You can reduce your chances of stroke by working with your medical provider to adopt a healthy lifestyle. Some specific ways to lower your chance of stroke are: * If you are a smoker, now is the time to stop smoking cigarettes * If you are diabetic, improve the control of your blood sugars * Avoid excessive amounts of alcohol * Control high blood pressure * Lose weight if you are overweight * Be sure to lead an active lifestyle * Eat a healthy diet low in salt, cholesterol and fat You should know about other risk factors for stroke that you are unable to control. These include: * Age 55 years or older * Male gender * Certain racial groups: , or / * Family History of Stroke, Mini stroke or Heart Attack * Sickle Cell Disease Follow Up: It is important for you to keep your follow up appointments with your medical provider. Who to Call and When: Medical Emergencies: Call 911 immediately if you experience any of the following warning signs and symptoms of Stroke: * Sudden numbness or weakness of the face, arm or leg, especially on one side of the body * Sudden confusion, trouble speaking or understanding * Sudden trouble seeing in one or both eyes * Sudden trouble walking, dizziness, loss of balance or coordination * Sudden severe headache with no cause Do not delay calling 911 if you experience any warning signs or symptoms of a stroke. Delay in seeking medical attention may affect what treatments can be given to you. . Total Time Total Time Spent Total Time Spent (In Minutes): 45 min Coding Level of Care Code 46294 INP/OBS DISCH >30 MIN Diagnoses Acute CVA (cerebrovascular accident) I63.9 Carotid stenosis, bilateral I65.23 Stage III pressure ulcer of back L89.103 Right shoulder pain M25.511 Diabetes mellitus E11.9 Fatigue R53.83 Wound, open, arm, forearm S51.809A Vitamin D deficiency E55.9 Vitamin B12 deficiency E53.8 Sleep apnea G47.30 BPH (benign prostatic hyperplasia) N40.0 HTN (hypertension), benign I10
== END 2023-09-13 11:56 | DRG 64 ==
LOC: ED 16:21 → EDINP 20:17 → SUATTDRO 20:17 → 2N 09-10 21:19